=== PATIENT | female | born 1945 | race Caucasian/White ===

== ENCOUNTER → 2019-08-21 14:13 | Outpatient (BNVA) | payer MEDICARE, OTHER, SELFPAY | PROVIDERS: Family Provider Nurse Practitioner Family; PCP Family Medicine; Visit Provider Nurse Practitioner Family | DX: N30.20 Other chronic cystitis without hematuria (principal); N39.41 Urge incontinence; N76.0 Acute vaginitis | CPT/HCPCS: 81001 ==

== ENCOUNTER 2019-12-18 14:00 | Outpatient (CLI) | payer MEDICARE, OTHER, SELFPAY ==
--- NOTE | 2019-12-18 17:22 | ONC CON_ITS ---
Dr. Berger New Patient Note Patient: Amanda Molina Unit #: [id number]: [id number] Dicatated By: Mary Berger M.D.Date of Visit: Dec 18, 2019 Onc MED New Patient/Consult Referring Physician: Dr. Burak Yi M.D. History of Present Illness: Mrs. Amanda Molina, is a 74-year-old female with history of right lung mass, as per patient, initially, it was observed on her chest CT scan done 07/21/2017 which, at that time, it was so small, and it was decided to observe. And then she lost follow-up until recently when she underwent CT scan of chest abdomen pelvis on 10/10/2019 which showed increase in size of cavitary nodule in the right lower lobe suspicious for neoplasm, enlarged mediastinal and right hilar lymph nodes suspicious for yg metastasis subsequently on 10/25/2019, she underwent CT PET scan which confirmed hypermetabolic cavitary lesion within the subpleural right lower lobe consistent with primary pulmonary neoplasm and hypermetabolic right hilar, right lower paratracheal, and subcarinal, adenopathy. There is a hypermetabolic lymph node abutting the esophagus most consistent with paraesophageal lymph node. No contralateral hypermetabolic left hilar lymph nodes seen. No distant metastasis within the abdomen or pelvis or in the bones Subsequently patient underwent bronchoscopy on 11/13/2019 at [facility] in [place], transbronchial lymph node biopsy was done from the radius stations and pathology report reported on 12/04/2019 showed lymph nodes station 4R, positive for malignancy fragments of squamous cell carcinoma seen Lymph node station 10 R, FNA biopsy, was positive for malignancy very scant fragments of squamous cell carcinoma seen Lung right lower lobe transbronchial biopsy showed benign lung tissue, no tumor seen PDL 1 membranous positivity seen in 95% of tumor cell. Patient further, underwent CT scan of chest on 12/01/2019 which showed interval increase in size of peripheral spiculated cavitary lesion of the posterior basal segment of right lower lobe consistent with progression of the disease. And stable abnormal short axis diameter right hilar and middle mediastinal lymphadenopathy . Mild central lobular and paraseptal emphysematous changes. Mild increase in size of small pericardial effusion. Patient has history of smoking but quit 16 years ago Patient denies any hemoptysis or hematemesis, denies any fever or chills. Denies any dysphagia, denies any jaundice denies any bony pains, appetite is good. Past Medical History: Ms. Molina's medical history consists of chronic back pain, chronic kidney disease (stage III), chronic obstructive pulmonary disease, enlarged aorta, hyperlipidemia, hypertension, migraine headaches, type II diabetes, vitamin b12 deficiency, and vitamin d deficiency. Past Surgical History: Ms. Molina's surgical/procedural history consists of cataract excision, hysterectomy, and left femur replacement. Medications: ALPRAZolam 1 Tablet (of 1 mg) Oral b.i.d., Amoxicillin 1 Capsule (of 250 mg) Oral t.i.d. for 10 days, Ntqwzoscqm-MHRX-Aelfqovc 1 Capsule (of 50-325-40 mg) Oral q 4 hours PRN, Clopidogrel Bisulfate 1 Tablet (of 75 mg) Oral daily, Escitalopram Oxalate 1 Tablet (of 20 mg) Oral daily, Famotidine 1 Tablet (of 40 mg) Oral b.i.d., Furosemide 1 Tablet (of 80 mg) Oral b.i.d., Gabapentin 1 Tablet (of 600 mg) Oral t.i.d., HYDROcodone-Acetaminophen 1 Tablet (of 10-325 mg) Oral q 4 hours PRN, Lactulose 1 (20 g/30mL) Solution Oral b.i.d., Levothyroxine Sodium 1 Tablet (of 137 mcg) Oral daily, Lovastatin 1 Tablet (of 20 mg) Oral daily, metFORMIN HCl 1 Tablet (of 500 mg) Oral b.i.d., tiZANidine HCl 2 Tablet (of 2 mg) Oral at bedtime, traZODone HCl 1 - 3 Tablet (of 50 mg) Oral at bedtime, Vitamin D (Ergocalciferol) 1 CA 125 Units/mL (of 1.25 mg ) Capsule Oral q 7 days Allergies: Citalopram Hydrobromide and Cymbalta. Social History: Ms. Molina is and she is an unknown. Ms. Molina no longer smokes but had smoked 1.5 packs/day for 25 years. She has no history of drinking. Ms. Molina reports the following support systems: lives with spouse, significant other, family, or friends, lives in own house, supportive family/friends willing to assist with needs, and adequate transportation available for expected visits. Her diet consists of regular meals. She indicates her activity level as: light exercise. Family History: Ms. Molina's mother at age 79: stroke. Ms. Molina's father at age 69: lung cancer. Review Of Symptoms: Constitutional - Appetite is diminished and weight is stable. No fever, night sweats, or hot flashes. Energy level is poor, ENMT - Positive for sinus congestion/drainage. No mouth sores. Positive for sore throat and difficulty swallowing, Hematologic/Lymphatic - Positive for easy bruising, Respiratory - Positive for shortness of breath. No cough. No pleuritic pain or hemoptysis, Cardiovascular - No angina pain. No palpitations, Gastrointestinal - No nausea or vomiting. No heartburn or acid reflux. No diarrhea. Positive for constipation. No blood in the stool or black stools, Genitourinary (F) - No dysuria or hematuria. No urinary frequency. No urgency. Positive for incontinence, Musculoskeletal - Positive for joint pain, Neurologic - Positive for headache, dizziness. No numbness or tingling. No other focal neurologic symptoms, Psychiatric - Positive for anxiety and depression. No insomnia. Vital Signs: Performed on Dec 18, 2019 14:18: 6, 29.19, 1.87 sq.m, 65.00 in, 97 %, 68 /min, 18 /min, 142/62 mm(hg) (HIGH), 98.2 F (LOW), and 175.4 lbs (HIGH). Performance Status: 0 - Fully active, able to carry on all predisease activities without restrictions. (ECOG) Physical Examination: ENMT - no mouth sores, no thrush, Respiratory - Lungs are clear, Cardiovascular - Regular rate and rhythm of heart, Abdomen - soft, bowel sounds present, Extremities - trace edema lower extremity, chronic in nature. Lab/Imaging: Most recent lab results are not available for this patient. Impression: Squamous cell carcinoma per transbronchial biopsy done on 11/13/2019 reported on 12/04/2019 showed right-sided mediastinal lymph node involvement e.g. Station 4R, station 10 R, F and lymph node biopsy confirmed squamous cell carcinoma. As right lower lobe transbronchial biopsy showed benign lung tissue CT PET scan done on 10/25/2019 showed hypermetabolic cavitary lesion within the subpleural right lower lobe consistent with primary lung malignancy Hypermetabolic right hilar, right lower paratracheal, subcarinal, paraesophageal lymphadenopathy seen. No contralateral lymphadenopathy No distance metastases. Clinical stage T1c,, 2.3 x 1.5 cm (>2cm ,<3cm), N2 ,( right mediastinal and paraesophageal lymph node involvement), MX stage IIIa Diabetes mellitus, on oral hypoglycemic History of migraine headaches. Plan: Discussed with patient regarding her disease status, and treatment options, considering patient's age and clinical stage e.g. stage IIIa and comorbid condition, patient is not a candidate for upfront surgery, other treatment options including , neoadjuvant chemotherapy followed by surgical evaluation or neoadjuvant combined chemoradiation followed by surgical evaluation or definitive combined chemoradiation followed by maintenance immunotherapy with durvalumab , were discussed in detail Based on patient's age, underlying pulmonary status, patient is not a candidate for surgery so definitive combined chemoradiation therapy is under consideration, we will refer her to radiation oncology for evaluation and consider weekly carboplatin/Taxol concurrent with radiation therapy, if tolerated well, may consider full dose carboplatin/Taxol every 21 days ???2 followed by maintenance therapy with durvalumab every 2 weeks ???12 months All the side effects possible benefits associated with chemotherapy including but not limited to bone marrow suppression, nausea vomiting, hair loss, allergic reaction especially with Taxol, hyperglycemia with steroids, peripheral neuropathy again with Taxol were mentioned further teaching will be done by chemotherapy nurse. We will obtain approval from insurance prior to the treatment and also consider Port-A-Cath placement to facilitate chemotherapy. And also consider sliding scale teaching We will obtain baseline CBC CMP and patient return to clinic 1 week after chemotherapy is initiated with CBC CMP Signed By: Mary Berger M.D. <<Signature on File>>
== END 2019-12-18 14:01 | disposition home or self-care (01) ==
LOC: ONCMED 14:05
PROVIDERS: PCP Family Medicine; Visit Provider Internal Medicine Hematology & Oncology
DX: C80.1 Malignant (primary) neoplasm, unspecified (principal); C77.1 Secondary and unspecified malignant neoplasm of intrathoracic lymph nodes; E11.22 Type 2 diabetes mellitus with diabetic chronic kidney disease; I12.9 Hypertensive chronic kidney disease with stage 1 through stage 4 chronic kidney disease, or unspecified chronic kidney disease; N18.9 Chronic kidney disease, unspecified; J44.9 Chronic obstructive pulmonary disease, unspecified; G43.109 Migraine with aura, not intractable, without status migrainosus; Z87.891 Personal history of nicotine dependence; Z79.84 Long term (current) use of oral hypoglycemic drugs
CPT/HCPCS: 99203; 99214

== ENCOUNTER 2019-12-26 12:08 | Day surgery (SDC) | payer MEDICARE, OTHER, SELFPAY ==
[2019-12-22 13:45] VITALS: BMI 28.3
--- NOTE | 2019-12-26 | SCC_ITS ---
Procedure Done: Right IJ PowerPort placement through right internal jugular vein under ultrasound guidance and fluoroscopic images, all interpretation through the entire procedure was done by me. 22.2 seconds of fluoroscopic guidance, for a cumulative dose of 3.3 mGy, was provided to Dr. Perdomo by the radiology department. C-arm images of the chest were saved for the patient's permanent record. [facility]ITALTeodora
--- NOTE | 2019-12-26 12:19 | SC_ITS ---
WS: [id number] Fluoroscopy of the right chest for port catheter placement, 12/26/2019 Clinical Data: Fluoroscopic guidance Port-A-Cath placement Comparison: None. Findings: The right Port-A-Cath has been inserted. It ends in the superior vena cava. SC/C-arm [place] for CVA 51244 Impression: Satisfactory placement of right Port-A-Cath.
[2019-12-26 12:33] VITALS: BP 139/97; PULSE 73; RESP 18; TEMP 36.6; O2SAT 97
[2019-12-26] MEDS: sodium chloride 0.9% 1,000 ML 30 ML IV (12:43)
[2019-12-26 12:47] LABS: Glucose Point of Care 116 mg/dL (70-110)
--- NOTE | 2019-12-26 12:56 | P.ANESASSM_ITS ---
Pre-Anesthetic Assessment Pre-Anesthetic Assessment: Height/Weight: Height 1.65 m Weight 77.111 kg Temp Pulse Resp BP Pulse Ox 97.9 F 73 18 139/97 97 12/26/19 12:33 12/26/19 12:33 12/26/19 12:33 12/26/19 12:33 12/26/19 12:33 Preop Diagnosis: Lung cancer Proposed Procedure: Operation Date: 12/26/19 12:25 Proposed Procedures p Portacath Placement 37520 C34.90(Not Applicable) - Alec Perdomo MD Was Beta Mariaelena taken within 24 hours: N/A Last intake: Intake Last Liquid Date 12/26/19 Last Liquid Time 05:00 Last Solid Date 12/25/19 Last Solid Time 20:00 Social: Social History: No alcohol and No tobacco Packs per day: quit smok ing 15 years back Exam: Pre-Anes Outpt Exam: alert, oriented x 3, clear to auscultation bilaterally and regular rate & rhythm Airway: Submandibular: WNL Cervical ROM: WNL MP: 2 Dentition: False History/ROS: No significant history except as noted Pulmonary: Pulmonary: COPD Comments: Current Diagnosis of Lung CA CV/HEM: CV/HEM: HTN : : None reported Hepatic: Hepatic: None reported GI: GI: None reported Metabolic: Metabolic: Thyroid Musc/skel: Musc/skel: None reported Neuropsych: Neuropsych: Anxiety Anesthetic Plan: ASA status: 3 Anesthesia: MAC Meds/Allergies Current Medications: Current Medications Generic Name Dose Route Start Last Admin Trade Name Freq PRN Reason Stop Dose Admin Sodium Chloride 1,000 mls @ 30 ml s/hr 12/26/19 12:30 12/26/19 12:43 Sodium Chloride 0.9% IV 12/27/19 12:29 30 mls/hr .Q24H MICHELLE Administration PFSH Anesthesia PFSH: Medical History Chronic cystitis Diabetes Gross hematuria H/O fracture of femur has an artifical femur left leg Malignant neoplasm of lung Urgency incontinence Surgical History H/O oral surgery H/O pneumonectomy H/O: hysterectomy S/P cataract surgery Family History Mother , CVA-79 No problems noted. Father , 69-lung cancer Cancer Denies family history of Anesthesia complication Bleeding disorder Social History Smoking and tobacco status: never smoked Alcohol intake: never Adopted: No Caregiver/support person: No Lives independently: No Household members: family Marital status: / Current occupational status: retired Data Anesthesia Other Labs: Laboratory Results - last 48 hr 12/26/19 12:44 POC Glucose 116 Cardiac Studies: No Data to Display
--- NOTE | 2019-12-26 12:57 | W.PM.OPSUD ---
Surgery/Procedure H&P Update DATE OF PROCEDURE: December 26, 2019 DATE H&P PERFORMED: 12/21/19 H&P UPDATE INFORMATION: I have reviewed H&P completed within last 30 days, I have examined patient prior to procedure and No changes to prior documentation PREOP DIAGNOSIS: Lung cancer PRIMARY INDICATION FOR PROCEDURE: The same PLANNED PROCEDURE: Operation Date: 12/26/19 12:25 Proposed Procedures p Portacath Placement 52242 C34.90(Not Applicable) - Alec Perdomo MD
[2019-12-26] MEDS: lidocaine 2% INJ 20 mL INJECTION (13:54)
[2019-12-26] MEDS: heparin, porcine 1,000 unit/mL INJ 10 mL 10000 UNIT INJECTION (13:55)
--- NOTE | 2019-12-26 14:36 | P.OP_ITS ---
Operative Report Date of procedure: December 26, 2019 Pre-op Diagnosis: Lung cancer Post-op diagnosis: same Post-op Findings: Right IJ PowerPort placement through right internal jugular vein Procedure Done: Right IJ PowerPort placement through right internal jugular vein under ultrasound guidance and fluoroscopic images, all interpretation through the entire procedure was done by me. Implants: PowerPort placed right IJ vein Surgeon: Alec Perdomo Director Of Scout Work: manufacturing test technician Rolanda Circulating nurse Suze Anesthesia: MAC (Esperanza Collazo) Estimated blood loss (mL): 20 Condition: stable Disposition: same day Brief History: This is a pleasant 74 years old female patient with history of lung cancer requiring Port-A-Cath placement. plan of care; After thorough history physical examination and reviewing the chart, I counseled the patient for Port-A-Cath placement, indications, risks including pneumothorax and injury of major vascular structures, benefits,indications and alternatives were all discussed with the patient, patient understands and is interested to proceed. Rationale was carefully and clearly discussed with the patient.Appropriate informed consent have been reviewed and signed. Procedure: Patient was identified in the holding area and taken to the operative room and placed in supine position IV propofol was given by the anesthesia provider ,both arms were tucked,Time-out was done verifying the patient's name/date of /planned procedure and destination after the procedure, all were in agreement. SCDs confirmed to be functioning, preoperative antibiotics administered per protocol, and beta catracho protocol was confirmed, appropriate positioning of the patient was done by me. Medications were reviewed to assess for anticoagulant usage. Risks and benefits and prevention of central line associated blood stream infection (CLABSI) were discussed with the patient/CPOA, and a consent was obtained. Monitors were in place and monitored throughout the procedure. All necessary supplies were available prior to start. Hand hygiene was completed prior to starting. Maximum barrier technique was utilized including a sterile gown, sterile gloves with a hat and mask. Site was was prepped with [chlorhexidine] and a full body drape was placed. 5 mL of 2% lidocaine was injected into the skin with a 25 gauge needle. Prep& drape was done under the usual sterile technique, lidocaine 2% was injected at the site of the stick, started by right subclavian vein that was not successful after couple of attempts as the wire wont thread. I decided to deviate my attention to the right internal Juglar vein under ultrasound guidance stick that retrieved venous blood was obtained from the first stick under ultrasound guidance and there was no evidence of intraluminal thrombosis, interpretation was done by me through the whole entire procedure, a guidewire was then threaded and under the guidance of fluoroscopy position was confirmed to be in the IVC and my interpretation, there was no PVC changes, at that point the guidewire was secured to the drapes with a hemostat and the needle was taken out. Attention was then deviated towards creation of a pocket for the port were lidocaine 2% was injected using an 15 blade knife skin incision was created at the right upper Chest ,dissection using the Bovie to create a pocket for the Port-A-Cath to be accommodated, hemostasis was secured, after the port being appropriately flushed it was inserted into the pocket and a tunneler was used to accommodate the catheter of the port cath to be delivered through the incision first created at the site of the stick, yet I had to create a transit incision at the root of the neck at the right side to the patient difficult anatomy , and then I was able to retrieve the catheter at the index site of the stick. At that point under fluoroscopy an estimated length was measured for the catheter and was cut at the designed level, followed by that a dilator with the sheath introduced onto the guidewire the dilator and the wire were retrieved and the catheter of the port was introduced via the sheath where it was peeled off and the catheter maintained to be in the SVC that was confirmed with fluoroscopy, and the fluoroscopy interpretation was done by me throughout the entire procedure. Multiple flushes of the port was done by diluted heparin and I was able to retrieve without difficulty venous blood as well as appropriate flushing was achieved. The port maintained to be in its pocket followed by 3-0 Vicryl deep subdermal interrupted sutures, skin was then closed by 4-0 Monocryl as subcuticular closure.3-0 Vicryl was used to close the previous skin incisions at the neck, followed by surgical glue. Patient tolerated the procedure well was taken to the recovery area in stable condition Count was correct at the end of the procedure I was present for the whole entire procedure
--- NOTE | 2019-12-26 14:36 | XR_ITS ---
WS: [id number] PORTABLE CHEST HISTORY: s/p RIGHT IJ port-a-cath COMPARISON: None available. RIGHT internal jugular port is been placed with tip in the distal SVC. No complications are apparent. Lungs are clear and well expanded. No pleural effusion or pneumothorax. Cardiac size: Normal. Mediastinum/Aorta: Mild atherosclerosis aorta. No osseous abnormality seen. XR/XR chest 1V portable [id number] IMPRESSION: Uncomplicated placement RIGHT IJ Port-A-Cath.
[2019-12-26 14:47] VITALS: BP 152/84; PULSE 81; RESP 14; TEMP 36.1; O2SAT 100
[2019-12-26 15:06] VITALS: BP 138/74; PULSE 73; RESP 18; TEMP 36.4; O2SAT 96
[2019-12-26] MEDS: HYDROcodone-acetaminophen 10-325 mg Tablet 1 TAB PO (15:20)
[2019-12-26 15:23] VITALS: BP 142/81; PULSE 96; RESP 18; O2SAT 96
== END 2019-12-26 15:58 | disposition home or self-care (01) ==
PROVIDERS: PCP Family Medicine; Visit Provider Surgery
PROC: (CPT 36561; principal; 2019-12-26 12:25)
DX: C34.90 Malignant neoplasm of unspecified part of unspecified bronchus or lung (principal); J44.9 Chronic obstructive pulmonary disease, unspecified; I10 Essential (primary) hypertension; F41.9 Anxiety disorder, unspecified; E11.9 Type 2 diabetes mellitus without complications; Z79.84 Long term (current) use of oral hypoglycemic drugs
CPT/HCPCS: 36561; 12345; 36416; 71045; 76000; 77001; 82962; C1788; J0690; J1644; J2001; J2704; J3010; J7030

== ENCOUNTER 2020-01-03 15:03 | Outpatient (CLI) | payer MEDICARE, OTHER, SELFPAY ==
--- NOTE | 2020-01-03 17:30 | N.ONRAD NP_ITS ---
Radiation Oncology New Patient Visit Patient: Amanda Molina MR#: [id number] : 1945> Age: 74> Sex: Female> Dictated by: Dr. Osvaldo Street Date of Service: 01/03/2020 Referring Physician(s) : Dr. Berger Diagnosis: C80.1 - malignant (primary) neoplasm, unspecified, Diagnosed 12/22/2019 (active) and C77.1 - secondary and unspecified malignant neoplasm of intrathoracic lymph nodes, Diagnosed 12/22/2019 (active). Radiotherapy to date: Summary > No prior radiation therapy. Chief Complaint / History of Present Illness: Mrs. Molina is a 74-year-old lady who had imaging of the chest performed in July 2017. At that time she had a small right lower lobe pleural mass measuring about 5 x 7 mm. Follow-up was elected, but the patient did not have further imaging that I know of until September of this year. She was being evaluated for enlargement of the aorta and the mass in the right lower lobe was noted to have increased in size to about 2 cm and it had become cavitary. Also the study in September revealed right hilar and mediastinal lymphadenopathy. A PET/CT performed 10/25/2019 showed increased metabolic activity in the cavitary mass as well as right hilar, right lower paratracheal, subcarinal and para esophageal lymph nodes. A bronchoscopy was performed 11/13/2019. No endobronchial lesions were identified but lymph node biopsies were carried out and fragments of squamous cell carcinoma recovered from stations 4R and 10 R. 95% of the tumor cells were positive for PDL 1, though the specimen was very small and it was recommended that the results be interpreted with caution. Another CT of the chest was performed 1 month ago. It showed slight enlargement of the cavitary mass in the right lower lobe and stable lymphadenopathy. Mrs. Molina has seen Dr. Berger. He does not feel that she is a candidate for surgery. He is referred her for evaluation for concomitant chemotherapy and radiation. Mrs. Molina does not have apparent symptoms related to the cancer. She has had no change in her pulmonary status. She has a history of sleep apnea and uses oxygen at night because of that. She could not could not tolerate a mask for CPAP. She has had no troublesome cough, sputum production, or hemoptysis. She has no new bone pain. Her appetite and weight have been stable. She has stable fatigue. She states that she can walk up 1 flight of stairs without any difficulty. Current Medications: ALPRAZolam, amoxicillin, dsagzxvgct-SQUB-Hmevoamw, clopidogrel Bisulfate, dexamethasone, escitalopram Oxalate, famotidine, furosemide, gabapentin, hYDROcodone-Acetaminophen, lactulose, levothyroxine Sodium, lovastatin, metFORMIN HCl, tiZANidine HCl, traZODone HCl, vitamin D (Ergocalciferol). Allergies: Cymbalta and Citalopram Hydrobromide. Medical History: - Chronic back pain, - chronic kidney disease (stage III) , - chronic obstructive pulmonary disease, - enlarged aorta, - hyperlipidemia, - hypertension, - migraine headaches, - type II diabetes, - vitamin b12 deficiency, - vitamin d deficiency. No history of collagen vascular disease. No previous radiation therapy. Surgical History: Cataract excision, hysterectomy and left femur replacement. Family History: Father is at age 69 having experienced lung cancer. Mother is at age 79 having experienced stroke. Social History: Last screened on 12/18/2019 - Yes - but has quit. Smoked 1.5 packs/day for 25 years (37.5 pack years). Last screened on 12/18/2019 - Never drank. Patient indicated access to the following support systems: lives with spouse, significant other, family, or friends, lives in own house, supportive family/friends willing to assist with needs, and adequate transportation available for expected visits. Patient indicated the following nutritional habits: regular meals. Patient indicated participation in the following forms of activity: light exercise. Current Complaints / Review of Systems: Constitutional - Complains of mild fatigue. Denies lack of appetite, fever, night sweats and change in weight. Eyes - Denies blurred vision and double vision. ENMT - Complains of mouth dryness and altered taste occasionally. Denies dysphagia, ear pain and stomatitis. Neck - Denies neck pain. Integumentary - Denies rash. Breasts - Denies pain. Cardiovascular - Complains of edema in both lower legs and feet. Denies arrhythmias and chest pain. Respiratory - Complains of mild dyspnea associated with normal activity. Complains of mild wheezing. Denies cough and hemoptysis. Gastrointestinal - Complains of persistent constipation. Complains of hemorrhoids. Denies abdominal pain, diarrhea, heartburn / dyspepsia, melena / GI bleeding, nausea and vomiting. Genitourinary (F) - Complains of dysuria associated with a known UTI. Complains of urgency. Denies frequency, hematuria, nocturia, vaginal discharge / bleeding and vaginal spotting. Musculoskeletal - Complains of joint pain both knees and lower back. Complains of generalized muscle weakness. Denies bone pain. Neurologic - Complains of abnormal gait and headaches in which she has history of migraines. Denies dizziness. Endocrine - Complains of Type 2 diabetes. Complains of thyroid disease. Hematologic/Lymphatic - Denies tender or enlarged lymph nodes.. Vital Signs: Performed on 01/03/2020 3:50 PM BMI - 29.488 kg/m2 (high), Height - 65.00 in, Weight - 177.2 lbs, Temperature - 98.0 f, Pulse - 78, Respiration - 20, O2 Sat - 95 % (low), Pain - 5 and BP - 118/ 70 mm(hg). Physical Exam: . No cervical or supraclavicular lymphadenopathy. A port has been placed in the right upper anterior chest. There is mild ecchymosis. There is no evidence of infection in the area. Lungs are clear to percussion. On auscultation there are no rales rhonchi or wheezes. Heart rhythm is regular with no murmur or gallop or rub. The abdomen has no distention. There is no organomegaly or mass or tenderness. Bowel sounds are active and normal. The musculoskeletal exam reveals a normal gait. She got on the exam table without assistance and with no difficulty. There is no bone tenderness. Alert oriented and in no distress Performance Status: KPS: 80 Pathology: Primary, c80.1 - malignant (primary) neoplasm, unspecified, Diagnosed 12/22/2019 (active) and Primary, c77.1 - secondary and unspecified malignant neoplasm of intrathoracic lymph nodes, Diagnosed 12/22/2019 (active). Lab: Imaging: See HPI Impression: Unresectable non-small cell carcinoma of the lung based on mediastinal lymph node involvement. Also, based on Mrs. Molina's age and overall health status, she probably would not tolerate the thoracotomy well. I agree with the recommendation for concomitant chemotherapy and radiation. I discussed a typical course of treatment over 7 weeks. I discussed the acute side effects such as fatigue, loss of appetite, weight loss, low blood counts, skin reaction, esophagitis, increased cough, and hemoptysis,. I reviewed the small risk of esophageal stenosis requiring dilatation procedures. Also discussed the small risk of cardiac injury, especially a pericardial effusion that may need to be drained. Also discussed the small risk of radiation fibrosis that could result in oxygen dependence. Mrs. Molina wishes to proceed with concomitant chemotherapy and radiation as recommended. Plan: Simulation will be scheduled. Signed by: 01/03/2020 5:29:47 PM <<Signature on File>> Time spent with patient: CPT Code: CPT Code:
== END 2020-01-03 15:04 | disposition home or self-care (01) ==
PROVIDERS: PCP Family Medicine; Visit Provider Internal Medicine Hematology & Oncology
DX: C34.31 Malignant neoplasm of lower lobe, right bronchus or lung (principal); C77.1 Secondary and unspecified malignant neoplasm of intrathoracic lymph nodes; G47.30 Sleep apnea, unspecified; Z99.81 Dependence on supplemental oxygen; E11.22 Type 2 diabetes mellitus with diabetic chronic kidney disease; I12.9 Hypertensive chronic kidney disease with stage 1 through stage 4 chronic kidney disease, or unspecified chronic kidney disease; N18.3 Chronic kidney disease, stage 3 (moderate); Z79.84 Long term (current) use of oral hypoglycemic drugs; Z87.891 Personal history of nicotine dependence
CPT/HCPCS: 99204

== ENCOUNTER 2020-01-16 06:50 | Outpatient (RCR) | payer MEDICARE, OTHER, SELFPAY ==
--- NOTE | 2020-01-08 | CT_ITS ---
Radiation Therapy Planning CT images; total exam DLP: 484.45 mGy-cm MTDD
[2020-01-15 10:01] LABS: Basophils % 0.2 %; Eosinophils % 0.2 %; Hematocrit 42.5 % (37.0-47.0); Hemoglobin 13.4 g/dL (11.5-15.3); Lymphocytes % 21.1 %; Mean Corpuscular HGB Conc 31.5 g/dL (30.0-36.0); Mean Corpuscular Hemoglobin 29.6 pg (28.0-34.0); Mean Platelet Volume 9.7 fL (7.4-10.4); Monocytes # 0.1 10^3/uL (0.2-0.9); Neutrophils # 3.7 10^3/uL (1.8-7.7); Neutrophils % 76.9 %; Nucleated Red Blood Cells % 0 %; Platelet Count 245 10^3/cmm (130-400); Red Blood Count 4.52 10^6/uL (4.1-5.3); Red Cell Distribution Width 13.1 % (12.1-15.1); White Blood Count 4.8 10^3/uL (4.0-10.0)
[2020-01-15 10:14] LABS: Slide Review Slide Review Perform
[2020-01-15 10:44] LABS: Alanine Aminotransferase 13 U/L (0-33); Albumin Level 4.5 g/dL (3.5-5.2); Alkaline Phosphatase 55 IU/L (35-105); Anion Gap 24.6 (5-19); Aspartate Amino Transferase 17 U/L (0-32); Blood Urea Nitrogen 15 mg/dL (8-23); Calcium 9.6 mg/dL (8.5-10.5); Carbon Dioxide 21 mmol/L (22-29); Chloride 99 mmol/L (98-107); Globulin 3.4 g/dL (1.3-4.6); Glucose 184 mg/dL (65-115); Osmolality Calculated 293 mOsm/kg (285-295); Potassium 3.6 mmol/L (3.5-5.1); Sodium 141 mmol/L (136-145); Total Bilirubin 0.2 mg/dL (0.15-1.2); Total Protein 7.9 g/dL (6.6-8.7)
[2020-01-15] MEDS: sodium chloride 0.9% 250 ML 75 ML IV (11:26)
--- NOTE | 2020-01-16 11:21 | ONCRAD TMN_ITS ---
Radiation Oncology Weekly Treatment Management Patient: Amanda Molina MR#: [id number] : 1945> Age: 74> Sex: Female Dictated by: Dr. Osvaldo Street Date of Service: 01/16/2020 Referring Physician(s) : Mary Berger M.D. Diagnosis: C77.1 - Secondary and unspecified malignant neoplasm of intrathoracic lymph nodes, Diagnosed 12/22/2019 (Active) C34.31 - Malignant neoplasm of lower lobe, right bronchus or lung, Diagnosed 12/18/2019 (Active) Radiotherapy to date: Course: RT Lung 2019, Treatment Site: RT [id number], Ref. ID: [id number], Energy: 6X, Dose/Fx (cGy): 180, #Fx: , Dose Correction (cGy): 0, Total Dose (cGy): 360, Start Date: 01/15/2020, Elapsed Days: 1 Chief Complaint/History of Present Illness: lung cancer tumor dose 360 cGy in 2 fractions. received chemotherapy and her first radiation treatment yesterday. She tells me that she fell when she got off the radiation table. I spoke with the radiation staff and they denied any incident at all. They think she may have fallen in the chemotherapy unit. They will check. Mrs. Molina states she has been having some problems with her legs since well before the cancer was diagnosed. She has episodes of weakness in her knees and she has also been having pedal edema. She has seen her primary care doctor for this problem in the past. She has also lost weight since beginning treatment. Her weight is down 7.2 pounds since 01/03/2020. She is diabetic. She tolerated the first 2 radiation treatments well. She is complimentary of the staff. No difficulty with the treatment position. Mrs. Amanda Molina, is a 74-year-old female with history of right lung mass, as per patient, initially, it was observed on her chest CT scan done 07/21/2017 which, at that time, it was so small, and it was decided to observe. And then she lost follow-up until recently when she underwent CT scan of chest abdomen pelvis on 10/10/2019 which showed increase in size of cavitary nodule in the right lower lobe suspicious for neoplasm, enlarged mediastinal and right hilar lymph nodes suspicious for yg metastasis subsequently on 10/25/2019, she underwent CT PET scan which confirmed hypermetabolic cavitary lesion within the subpleural right lower lobe consistent with primary pulmonary neoplasm and hypermetabolic right hilar, right lower paratracheal, and subcarinal, adenopathy. There is a hypermetabolic lymph node abutting the esophagus most consistent with paraesophageal lymph node. No contralateral hypermetabolic left hilar lymph nodes seen. No distant metastasis within the abdomen or pelvis or in the bones Subsequently patient underwent bronchoscopy on 11/13/[address] [facility] in [place], transbronchial lymph node biopsy was done from the radius stations and pathology report reported on 12/04/2019 showed lymph nodes station 4R, positive for malignancy fragments of squamous cell carcinoma seen Lymph node station 10 R, FNA biopsy, was positive for malignancy very scant fragments of squamous cell carcinoma seen Lung right lower lobe transbronchial biopsy showed benign lung tissue, no tumor seen PDL 1 membranous positivity seen in 95% of tumor cell. Patient further, underwent CT scan of chest on 12/01/2019 which showed interval increase in size of peripheral spiculated cavitary lesion of the posterior basal segment of right lower lobe consistent with progression of the disease. And stable abnormal short axis diameter right hilar and middle mediastinal lymphadenopathy . Mild central lobular and paraseptal emphysematous changes. Mild increase in size of small pericardial effusion. Patient has history of smoking but quit 16 years ago Patient denies any hemoptysis or hematemesis, denies any fever or chills. Denies any dysphagia, denies any jaundice denies any bony pains, appetite is good. Current Medications: ALPRAZolam, amoxicillin, nijdbwhfbh-LEIR-Jpvowwlm, cARBOplatin, clopidogrel Bisulfate, dexamethasone, dexamethasone Sodium Phosphate, diphenhydrAMINE HCl, eMLA, escitalopram Oxalate, famotidine, famotidine in NaCl, furosemide, gabapentin, hYDROcodone-Acetaminophen, lactulose, levothyroxine Sodium, lORazepam, lovastatin, metFORMIN HCl, pACLitaxel, palonosetron HCl, prochlorperazine Maleate, tiZANidine HCl, traZODone HCl, vitamin D (Ergocalciferol). Allergies: Cymbalta, Citalopram Hydrobromide and adhesive. Current Complaints/Review of Systems: Constitutional - Complains of lack of appetite. Complains of mild fatigue. Complains of change in weight in which she has lost 7.2 lbs. since last seen on 01/03/20. Denies fever and night sweats. ENMT - Complains of mouth dryness and altered taste occasionally. Denies dysphagia but has occasoinal odynophagia. Cardiovascular - Complains of edema in both feet. Denies arrhythmias and chest pain. Respiratory - Complains of cough which is non-productive. Complains of dyspnea associated with normal activity. Denies hemoptysis and wheezing. Vital Signs: Performed on 01/16/2020 10:07 AM BMI - 28.29 kg/m2 (high), Height - 65.00 in, Weight - 170.0 lbs, Temperature - 97.8 f, Pulse - 66, Respiration - 18, O2 Sat - 96 %, Pain - 5 and BP - 112/ 75 mm(hg). Physical Exam: Appears stable, no skin erythema or desquamation. Performance Status: 2 - Ambulatory/capable of all self-care, unable to perform any work activities. Up and about more than 50% of waking hours. (ECOG) Lab: None pending in Radiation Oncology. Test performed on 01/15/2020 9:42 AM Monocytes - 0.1 10 3/ul (low), CO2 - 21 mmol/l (low), Anion Gap - 24.6 (high), Creatinine - 1.3 mg/dl (high), Cr Clearance (Est) - 47.4500 ml/min (low) and Glucose - 184 mg/dl (high). Imaging: No new diagnostic imaging was performed since the last weekly treatment visit. All radiation therapy related imaging (including but not limited to kV, MV, and CBCT generated images) was reviewed. Appropriate changes, if any, were made to assure accurate target localization. Impression/Plan: Tolerating treatment well with expected side effects. Continue treatment as planned. Encouraged to see her family physician for the pedal edema. She will be observed for her leg weakness problems and the pedal edema as she goes through radiation treatment. We discussed her diet. She is diabetic and is on metformin. Therefore she will need to minimize traditional diet supplements. She may be a candidate for Glucerna if weight loss continues. We discussed eating small meals throughout the day, which should give her some additional calories and not complicate her blood sugars. We discussed one issue about the treatment planning. The paraesophageal node is very close to the esophagus. I told her that we tried to limit the dose to the esophagus but I expect that she will have symptoms of esophagitis during treatment. I told her she will also be at increased risk for needing her esophagus dilated after treatment. We discussed that some patients need that procedure multiple times. She wishes to continue with treatment as recommended. CPT: 95715 Signed by: Dr. Osvaldo Street>01/16/2020 11:21:12 AM <<Signature on File>>
== END 2020-01-16 23:59 | disposition home or self-care (01) ==
LOC: ONCMED 06:50
PROVIDERS: Internal Medicine Hematology & Oncology; PCP Family Medicine; Visit Provider Specialist
DX: Z51.0 Encounter for antineoplastic radiation therapy (principal); Z51.11 Encounter for antineoplastic chemotherapy; C34.31 Malignant neoplasm of lower lobe, right bronchus or lung; C77.1 Secondary and unspecified malignant neoplasm of intrathoracic lymph nodes; N39.41 Urge incontinence; N30.20 Other chronic cystitis without hematuria
CPT/HCPCS: 77300; 77301; 77334; 77338; 77386; 77470; 80053; 85025; 96367; 96413; 96417; J1100; J1200; J2469; J3490; J7040; J7050; J9045; J9267

== ENCOUNTER → 2020-02-15 11:46 | Outpatient (BNVA) | payer MEDICARE, OTHER, SELFPAY | PROVIDERS: PCP Family Medicine; Visit Provider Nurse Practitioner Family | DX: N30.20 Other chronic cystitis without hematuria (principal); C34.90 Malignant neoplasm of unspecified part of unspecified bronchus or lung | CPT/HCPCS: 81001 ==

== ENCOUNTER 2020-02-16 06:52 | Outpatient (RCR) | payer MEDICARE, OTHER, SELFPAY ==
[2020-01-22 09:53] LABS: Basophils % 0.5 %; Eosinophils % 0.2 %; Hematocrit 39.4 % (37.0-47.0); Hemoglobin 12.6 g/dL (11.5-15.3); Lymphocytes # 0.5 10^3/uL (0.8-4.8); Lymphocytes % 12.2 %; Mean Corpuscular Hemoglobin 30.2 pg (28.0-34.0); Mean Corpuscular Volume 94.5 fL (81-99); Mean Platelet Volume 10.1 fL (7.4-10.4); Neutrophils # 3.4 10^3/uL (1.8-7.7); Neutrophils % 85.1 %; Nucleated Red Blood Cells % 0 %; Platelet Count 223 10^3/cmm (130-400); Red Blood Count 4.17 10^6/uL (4.1-5.3); Red Cell Distribution Width 12.5 % (12.1-15.1)
[2020-01-22 10:25] LABS: Alanine Aminotransferase 13 U/L (0-33); Albumin Level 4.4 g/dL (3.5-5.2); Alkaline Phosphatase 48 IU/L (35-105); Anion Gap 22.3 (5-19); Aspartate Amino Transferase 15 U/L (0-32); Blood Urea Nitrogen 14 mg/dL (8-23); Calcium 9.8 mg/dL (8.5-10.5); Carbon Dioxide 25 mmol/L (22-29); Chloride 98 mmol/L (98-107); Globulin 3.2 g/dL (1.3-4.6); Glucose 168 mg/dL (65-115); Osmolality Calculated 292 mOsm/kg (285-295); Potassium 4.3 mmol/L (3.5-5.1); Sodium 141 mmol/L (136-145); Total Bilirubin 0.3 mg/dL (0.15-1.2); Total Protein 7.6 g/dL (6.6-8.7)
[2020-01-22] MEDS: sodium chloride 0.9% 250 ML 75 ML IV (11:23)
[2020-01-22] MEDS: ondansetron 2 mg/ML SDV 2 mL 8 MG IV (12:17)
--- NOTE | 2020-01-23 15:33 | ONC FU_ITS ---
[facility] Patient Note Patient: Amanda Molina Unit #: [id number]: 1945 Dictated By: Jose RosenbergDate of Visit: Jan 22, 2020 Onc MED Follow-Up/Prog Note Chief Complaint: lung cancer History of Present Illness: Mrs. Molina is a 74-year-old female with history of right lung mass, as per patient, initially, it was observed on her chest CT scan done 07/21/2017 which, at that time, it was so small, and it was decided to observe. And then she lost follow-up until recently when she underwent CT scan of chest abdomen pelvis on 10/10/2019 which showed increase in size of cavitary nodule in the right lower lobe suspicious for neoplasm, enlarged mediastinal and right hilar lymph nodes suspicious for yg metastasis subsequently on 10/25/2019, she underwent CT PET scan which confirmed hypermetabolic cavitary lesion within the subpleural right lower lobe consistent with primary pulmonary neoplasm and hypermetabolic right hilar, right lower paratracheal, and subcarinal, adenopathy. There is a hypermetabolic lymph node abutting the esophagus most consistent with paraesophageal lymph node. No contralateral hypermetabolic left hilar lymph nodes seen. No distant metastasis within the abdomen or pelvis or in the bones Subsequently patient underwent bronchoscopy on 11/13/2019 at [facility] in [place], transbronchial lymph node biopsy was done from the radius stations and pathology report reported on 12/04/2019 showed lymph nodes station 4R, positive for malignancy fragments of squamous cell carcinoma seen Lymph node station 10 R, FNA biopsy, was positive for malignancy very scant fragments of squamous cell carcinoma seen Lung right lower lobe transbronchial biopsy showed benign lung tissue, no tumor seen PDL 1 membranous positivity seen in 95% of tumor cell. Patient further, underwent CT scan of chest on 12/01/2019 which showed interval increase in size of peripheral spiculated cavitary lesion of the posterior basal segment of right lower lobe consistent with progression of the disease. And stable abnormal short axis diameter right hilar and middle mediastinal lymphadenopathy . Mild central lobular and paraseptal emphysematous changes. Mild increase in size of small pericardial effusion. Patient has history of smoking but quit 16 years ago Ms Molina was offered concurrent treatment with chemo radiation. Her chemotherapy treatment plan is weekly Carboplatin/Taxol. She began her first week on January 15, 2020. She is here today for follow-up. She is due for week 2. She states overall she is done pretty good. She did state that she had quite a bit of constipation after her treatment last week. She states she has chronic constipation to begin with but this was worse than normal. It has currently resolved but she states it was pretty significant and she did end up using laxatives to resolve it. She did have slight nausea but did not take any of the antiemetics at home. She states she has a sore in her mouth but is because of her dentures. She has had some trouble with the dentures fitting and they had rubbed her lower gumline. She states that sore is healing though. She states she is had some intermittent leg numbness which comes and comes and goes but is no worse than what it has been. She denies any fever or chills. She denies any bladder concerns. She denies any new pain. She states she is eating fair. Energy is marginal. She states she is try to get up and do things around the house but she tires easily although she does recover well with rest. Her ECOG is 2. Past Medical History: Chronic back pain Chronic kidney disease (stage III) Chronic obstructive pulmonary disease Enlarged aorta Hyperlipidemia Hypertension Migraine headaches Type II diabetes Vitamin b12 deficiency Vitamin d deficiency Past Surgical History: Cataract excision Colonoscopy Hysterectomy Left femur replacement Allergies: adhesive, Citalopram Hydrobromide, and Cymbalta. Medications: ALPRAZolam 1 Tablet (of 1 mg) Oral b.i.d. Zbbzgwefjv-RMEH-Ledyoiht 1 Capsule (of 50-325-40 mg) Oral q 4 hours PRN Escitalopram Oxalate 1 Tablet (of 20 mg) Oral daily Famotidine 1 Tablet (of 40 mg) Oral b.i.d. Furosemide 1 Tablet (of 80 mg) Oral b.i.d. Gabapentin 1 Tablet (of 600 mg) Oral t.i.d. HYDROcodone-Acetaminophen 1 Tablet (of 10-325 mg) Oral q 4 hours PRN Lactulose 1 (20 g/30mL) Solution Oral b.i.d. Levothyroxine Sodium 1 Tablet (of 137 mcg) Oral daily Lovastatin 1 Tablet (of 20 mg) Oral daily metFORMIN HCl 1 Tablet (of 500 mg) Oral b.i.d. traZODone HCl 1 - 3 Tablet (of 50 mg) Oral at bedtime Vitamin D (Ergocalciferol) 1 CA 125 Units/mL (of 1.25 mg ) Capsule Oral q 7 days Family History: Ms. Molina's mother at age 79: stroke. Ms. Molina's father at age 69: lung cancer. Social History: Ms. Molina is and she is an unknown. Ms. Molina quit smoking 17 years ago but had smoked 1.5 packs/day for 8 years. She has no history of drinking. Ms. Molina reports the following support systems: lives with spouse, significant other, family, or friends, lives in own house, supportive family/friends willing to assist with needs, and adequate transportation available for expected visits. Her diet consists of regular meals. She indicates her activity level as: light exercise. Review Of Symptoms: Constitutional Denies fevers, chills, night sweats, excessive fatigue or weight loss. Allergic/Immunologic No reactions. Eyes Denies significant visual changes. No diplopia. No amaurosis. ENMT Denies changes in hearing, sore throat, mouth sores, difficulty or changes in swallowing ability, and/or sinus drainage. Some mouth irritation due to dentures. healing presently. Endocrine No diabetes, thyroid disease or hormone replacement. Denies hot flashes or night sweats. Hematologic/Lymphatic Denies easy bruising or bleeding. The patient denies any tender or palpable lymph nodes. Respiratory Denies dyspnea on exertion, chest pain, cough or hemoptysis. Denies orthopnea. Cardiovascular Denies anginal chest pain, palpitations or orthopnea. Gastrointestinal Denies nausea, vomiting, diarrhea, GI bleeding. Denies change in bowel habits and/or stool color, no heartburn or early satiety. She had significant constipation after last week's treatment. She states that she thinks it may be related to her pain meds. We did discuss that Aloxi could aggravate her constipation. She states she only had just a slight bit of nausea and did not require any additional nausea medicines. We will have her try stopping the Aloxi today and just using Zofran to see if this will help with her constipation. She states she took enough laxatives now that she has little bit of diarrhea but that is resolving on its own. Genitourinary (F) No hematuria, hesitancy, incontinence, vaginal bleeding, discharge or other problems with urination. Musculoskeletal Denies joint pain, swelling or redness. No decreased range of motion. Integumentary Denies chronic rashes, inflammation, ulcerations or skin changes. Neurologic Denies headache, blurred vision, and no areas of focal weakness or numbness. Normal gait. No sensory problems. Psychiatric Denies insomnia, depression, farida or mood swings. Vital Signs: Performed on Jan 22, 2020 10:28 Height - 65.00 in Weight - 168.6 lbs (LOW) BSA - 1.84 sq.m BMI - 28.06 Temperature - 97.1 F (LOW) Pulse - 94 /min Respiration - 17 /min BP - 134/71 mm(hg) O2 Sat - 98 % Pain - 0,2 - Ambulatory/capable of all self-care, unable to perform any work activities. Up and about more than 50% of waking hours. (ECOG) Physical Examination: Constitutional Alert, oriented, no acute distress. Skin pink, warm and dry. Head Normocephalic; atraumatic. Eyes Conjunctivae and sclerae are clear and without icterus. Pupils are reactive and equal. Neck Supple without masses or thyromegaly. No jugular venous distension. Hematologic/Lymphatic No petechiae or purpura. No tender or palpable lymph nodes in the cervical or supraclavicular areas. Respiratory Lungs are clear to auscultation without rhonchi or wheezing. Cardiovascular Regular rate and rhythm of heart without murmurs,clicks, gallops or rubs. Abdomen Non-tender, non-distended, no masses or ascites. Good bowel sounds noted in all quads. No guarding or rebound tenderness. No pulsatile masses. Back/Spine Non-tender to palpation. Extremities No visible deformities, no cyanosis, clubbing or edema. Musculoskeletal No tenderness or swelling, normal range of motion without obvious weakness. Integumentary No rashes or lesions. Neurologic No sensory or motor deficits, normal cerebellar function, normal gait-assisted with cane today. Psychiatric Alert and oriented times three. Coherent speech. Verbalizes understanding of our discussions today. Laboratory:Test performed on Jan 22, 2020 09:09 Sodium 141 mmol/L Potassium 4.3 mmol/L Chloride 98 mmol/L CO2 25 mmol/L Anion Gap 22.3 BUN 14 mg/dL Creatinine 1.0 mg/dL Cr Clearance (Est) 61.6800 mL/min Glucose 168 mg/dL Calcium 9.8 mg/dL Protein, Total 7.6 g/dL Albumin 4.4 g/dL Globulin 3.2 g/dL Bilirubin, Total 0.3 mg/dL ALT (SGPT) 13 U/L AST (SGOT) 15 U/L Alkaline Phosphatase 48 IU/L WBC 4.0 10 3/uL RBC 4.17 10 6/uL HGB 12.6 g/dL HCT 39.4 % MCV 94.5 fL MCH 30.2 pg MCHC 32.0 g/dL RDW 12.5 % Platelet Count 223 10 3/cmm MPV 10.1 fL Neutrophils 3.4 10 3/uL Lymphocytes 0.5 10 3/uL Monocytes 0.0 10 3/uL Eosinophils 0.0 10 3/uL Basophils 0.0 10 3/uL Neutrophil % 85.1 % Lymphocyte % 12.2 % Monocyte % 1.0 % Eosinophil % 0.2 % Basophils % 0.5 % NRBC % 0 % Test performed on Jan 15, 2020 09:42 CBC Slide Review Slide Review Perform SLIDE REVIEW AGREES WITH AUTOMATED RESULTS ST Impression: Squamous cell carcinoma per transbronchial biopsy done on 11/13/2019 reported on 12/04/2019 showed right-sided mediastinal lymph node involvement e.g. Station 4R, station 10 R, F and lymph node biopsy confirmed squamous cell carcinoma. As right lower lobe transbronchial biopsy showed benign lung tissue CT PET scan done on 10/25/2019 showed hypermetabolic cavitary lesion within the subpleural right lower lobe consistent with primary lung malignancy Hypermetabolic right hilar, right lower paratracheal, subcarinal, paraesophageal lymphadenopathy seen. No contralateral lymphadenopathy No distance metastases. Clinical stage T1c,, 2.3 x 1.5 cm (>2cm ,<3cm), N2 ,( right mediastinal and paraesophageal lymph node involvement), MX stage IIIa Diabetes mellitus, on oral hypoglycemic History of migraine headaches. Dr Berger discussed with patient regarding her disease status, and treatment options. Considering patient's age and clinical stage and comorbid condition, she is not a candidate for upfront surgery. Other treatment options include neoadjuvant chemotherapy followed by surgical evaluation or neoadjuvant combined chemoradiation followed by surgical evaluation or definitive combined chemoradiation followed by maintenance immunotherapy with durvalumab Based on patient's age, underlying pulmonary status, patient is not a candidate for surgery so definitive combined chemoradiation therapy is under consideration, we will refer her to radiation oncology for evaluation and consider weekly carboplatin/Taxol concurrent with radiation therapy, if tolerated well, may consider full dose carboplatin/Taxol every 21 days ???2 followed by maintenance therapy with durvalumab every 2 weeks ???12 months. Ms Molina began chemo/radiation on 01/15/2020. Plan: 1. Proceed with week 2 carboplatin paclitaxel. 2. Steroid compliance confirmed. 3. Stop Aloxi for premed due to constipation. Will try Zofran instead and reevaluate next week. 4. She may use stool softeners and [id number]-[id number] laxatives as needed for constipation. She is advised a stop that is not working we could try lactulose as well. 5. Today's labs were reviewed in detail and discussed with Ms. Molina and a copy was given to her. White count 4.0, hemoglobin 12.6, platelets 223,000 ANC is 3400. Potassium 4.3 random glucose 168 creatinine 1.01 LFTs are normal. 5. We will plan to have her return in 1 week with CBC CMP for consideration of week 3 concurrent chemo with radiation therapy. 6. Ms. Molina was instructed to contact us in the interim should questions or problems arise. Signed By: Jose Rosenberg-, BRO Berger MD <<Signature on File>>
--- NOTE | 2020-01-23 19:16 | ONCRAD TMN_ITS ---
Radiation Oncology Weekly Treatment Management Patient: Amanda Molina MR#: [id number] : 1945 Age: 74 Sex: Female Dictated by: Dr. Matthew Sabillon Date of Service: 01/23/2020 Referring Physician(s) : Mary Berger Diagnosis: C77.1 - Secondary and unspecified malignant neoplasm of intrathoracic lymph nodes, Diagnosed 12/22/2019 (Active) C34.31 - Malignant neoplasm of lower lobe, right bronchus or lung, Diagnosed 12/18/2019 (Active) Radiotherapy to date: Course: RT Lung 2019, Treatment Site: RT [id number], Ref. ID: [id number], Energy: 6X, Dose/Fx (cGy): 180, #Fx: , Dose Correction (cGy): 0, Total Dose (cGy): 1,080, Start Date: 01/15/2020, Elapsed Days: 8 Chief Complaint/History of Present Illness: The patient has moderate fatigue, mild chest wall pain on the right side, he denies progressive cough, shortness of breath, or wheezing. She reports that he is tolerating chemotherapy well. Current Medications: ALPRAZolam, gftcyyrwth-IEBD-Ajgpkqxh, cARBOplatin, dexamethasone, dexamethasone Sodium Phosphate, diphenhydrAMINE HCl, eMLA, escitalopram Oxalate, famotidine, famotidine in NaCl, furosemide, gabapentin, hYDROcodone-Acetaminophen, lactulose, levothyroxine Sodium, lORazepam, lovastatin, metFORMIN HCl, pACLitaxel, palonosetron HCl, prochlorperazine Maleate, traZODone HCl, vitamin D (Ergocalciferol). Allergies: Cymbalta, Citalopram Hydrobromide and adhesive. Current Complaints/Review of Systems: Vital Signs: Physical Exam: Appears stable, no skin erythema or desquamation. Performance Status: 2 - Ambulatory/capable of all self-care, unable to perform any work activities. Up and about more than 50% of waking hours. (ECOG) Lab: None pending in Radiation Oncology. Test performed on 01/22/2020 9:09 AM Lymphocytes - 0.5 10 3/ul (low), Monocytes - 0.0 10 3/ul (low), Anion Gap - 22.3 (high), Creatinine - 1.0 mg/dl (high), Cr Clearance (Est) - 61.6800 ml/min (low) and Glucose - 168 mg/dl (high). Imaging: No new diagnostic imaging was performed since the last weekly treatment visit. All radiation therapy related imaging (including but not limited to kV, MV, and CBCT generated images) was reviewed. Appropriate changes, if any, were made to assure accurate target localization. Impression/Plan: Tolerating treatment well with expected side effects. Continue treatment as planned. CPT: 99110 Signed by: Dr. Matthew Sabillon>01/23/2020 7:14:17 PM <<Signature on File>>
[2020-01-29 09:39] LABS: Basophils % 0.5 %; Hematocrit 36.3 % (37.0-47.0); Hemoglobin 11.5 g/dL (11.5-15.3); Lymphocytes # 0.3 10^3/uL (0.8-4.8); Lymphocytes % 13.1 %; Mean Corpuscular HGB Conc 31.7 g/dL (30.0-36.0); Mean Corpuscular Hemoglobin 30.2 pg (28.0-34.0); Mean Corpuscular Volume 95.3 fL (81-99); Mean Platelet Volume 9.6 fL (7.4-10.4); Monocytes # 0.1 10^3/uL (0.2-0.9); Monocytes % 2.4 %; Neutrophils % 82.5 %; Nucleated Red Blood Cells % 0 %; Platelet Count 163 10^3/cmm (130-400); Red Blood Count 3.81 10^6/uL (4.1-5.3); White Blood Count 2.1 10^3/uL (4.0-10.0)
[2020-01-29 10:01] LABS: Alanine Aminotransferase 9 U/L (0-33); Albumin Level 4.1 g/dL (3.5-5.2); Alkaline Phosphatase 48 IU/L (35-105); Anion Gap 19.5 (5-19); Aspartate Amino Transferase 9 U/L (0-32); Blood Urea Nitrogen 10 mg/dL (8-23); Calcium 9.2 mg/dL (8.5-10.5); Carbon Dioxide 18 mmol/L (22-29); Chloride 101 mmol/L (98-107); Globulin 3.5 g/dL (1.3-4.6); Glucose 190 mg/dL (65-115); Osmolality Calculated 279 mOsm/kg (285-295); Potassium 4.5 mmol/L (3.5-5.1); Sodium 134 mmol/L (136-145); Total Bilirubin 0.2 mg/dL (0.15-1.2); Total Protein 7.6 g/dL (6.6-8.7)
[2020-01-29] MEDS: sodium chloride 0.9% (100 ml) 100 ML 75 ML (11:34)
--- NOTE | 2020-01-30 17:14 | ONCRAD TMN_ITS ---
Radiation Oncology Weekly Treatment Management Patient: Amanda Molina MR#: [id number] : 1945> Age: 74> Sex: Female Dictated by: Dr. Matthew Sabillon Date of Service: 01/30/2020 Referring Physician(s) : Mary Berger M.D. Diagnosis: C77.1 - Secondary and unspecified malignant neoplasm of intrathoracic lymph nodes, Diagnosed 12/22/2019 (Active) C34.31 - Malignant neoplasm of lower lobe, right bronchus or lung, Diagnosed 12/18/2019 (Active) Radiotherapy to date: Course: RT Lung 2019, Treatment Site: RT [id number], Ref. ID: [id number], Energy: 6X, Dose/Fx (cGy): 180, #Fx: , Dose Correction (cGy): 0, Total Dose (cGy): 1,980, Start Date: 01/15/2020, Elapsed Days: 15 Chief Complaint/Interim History: lung cancer The patient reports moderate fatigue, moderate odynophagia, and occasional mouth sores. The patient is currently on an antibiotic secondary to a urinary tract infection. She also complains of a chemo reaction that caused a rash on her arms trunk and buttocks. She reports no hemoptysis, and no progressive shortness of breath. Current Medications: ALPRAZolam, augmentin, chplhyvffz-RFMW-Ktelmcvi, dexamethasone, eMLA, escitalopram Oxalate, famotidine, furosemide, gabapentin, hYDROcodone-Acetaminophen, lactulose, levothyroxine Sodium, lORazepam, lovastatin, metFORMIN HCl, prochlorperazine Maleate, traZODone HCl, vitamin D (Ergocalciferol). Allergies: Cymbalta, Citalopram Hydrobromide, adhesive and Taxol. Current Complaints/Review of Systems: Constitutional - Complains of lack of appetite off and on. Complains of moderate fatigue. Denies fever and night sweats. ENMT - Complains of dysphagia occasionally and stomatitis. Integumentary - Complains of rash on the arms and trunk from an allergic reaction to the chemo on Wednesday. Cardiovascular - Complains of edema in both feet. Denies chest pain. Respiratory - Denies cough, dyspnea and wheezing. Vital Signs: Performed on 01/30/2020 10:19 AM BMI - 28.19 kg/m2 (high), Height - 65.00 in, Weight - 169.4 lbs, Temperature - 976 f, Pulse - 74, Respiration - 20, O2 Sat - 100 %, Pain - 5 and BP - 126/ 73 mm(hg). Physical Exam: Appears stable, no skin erythema or desquamation. Oral cavity examination reveals no clinical exam findings consistent with mucositis or thrush. Performance Status: 3 - Capable of only limited self-care, confined to bed or chair more than 50% of waking hours. (ECOG) Lab: None pending in Radiation Oncology. Test performed on 01/29/2020 9:03 AM WBC - 2.1 10 3/ul (low), RBC - 3.81 10 6/ul (low), HCT - 36.3 % (low), Neutrophils - 1.70 10 3/ul (low), Lymphocytes - 0.3 10 3/ul (low), Monocytes - 0.1 10 3/ul (low), Sodium - 134 mmol/l (low), CO2 - 18 mmol/l (low), Anion Gap - 19.5 (high), Creatinine - 1.1 mg/dl (high), Cr Clearance (Est) - 56.0700 ml/min (low) and Glucose - 190 mg/dl (high). Imaging: All radiation therapy related imaging (including but not limited to kV, MV, and CBCT generated images) was reviewed. Appropriate changes, if any, were made to assure accurate target localization. Impression/Plan: Tolerating treatment well with expected side effects. Continue treatment as planned. CPT: 22810 Signed by: Dr. Matthew Sabillon>01/30/2020 5:13:06 PM <<Signature on File>>
--- NOTE | 2020-02-03 14:27 | ONC FU_ITS ---
[facility] Patient Note Patient: Amanda Molina Unit #: [id number]: [id number] Dictated By: Jose RosenbergDate of Visit: Jan 29, 2020 Onc MED Follow-Up/Prog Note Chief Complaint: lung cancer History of Present Illness: Mrs. Molina is a 74-year-old female with history of right lung mass, as per patient, initially, it was observed on her chest CT scan done 07/21/2017 which, at that time, it was so small, and it was decided to observe. And then she lost follow-up until recently when she underwent CT scan of chest abdomen pelvis on 10/10/2019 which showed increase in size of cavitary nodule in the right lower lobe suspicious for neoplasm, enlarged mediastinal and right hilar lymph nodes suspicious for yg metastasis subsequently on 10/25/2019, she underwent CT PET scan which confirmed hypermetabolic cavitary lesion within the subpleural right lower lobe consistent with primary pulmonary neoplasm and hypermetabolic right hilar, right lower paratracheal, and subcarinal, adenopathy. There is a hypermetabolic lymph node abutting the esophagus most consistent with paraesophageal lymph node. No contralateral hypermetabolic left hilar lymph nodes seen. No distant metastasis within the abdomen or pelvis or in the bones Subsequently patient underwent bronchoscopy on 11/13/2019 at [facility] in [place], transbronchial lymph node biopsy was done from the radius stations and pathology report reported on 12/04/2019 showed lymph nodes station 4R, positive for malignancy fragments of squamous cell carcinoma seen Lymph node station 10 R, FNA biopsy, was positive for malignancy very scant fragments of squamous cell carcinoma seen Lung right lower lobe transbronchial biopsy showed benign lung tissue, no tumor seen PDL 1 membranous positivity seen in 95% of tumor cell. Patient further, underwent CT scan of chest on 12/01/2019 which showed interval increase in size of peripheral spiculated cavitary lesion of the posterior basal segment of right lower lobe consistent with progression of the disease. And stable abnormal short axis diameter right hilar and middle mediastinal lymphadenopathy . Mild central lobular and paraseptal emphysematous changes. Mild increase in size of small pericardial effusion. Patient has history of smoking but quit 16 years ago Ms Molina was offered concurrent treatment with chemo radiation. Her chemotherapy treatment plan is weekly Carboplatin/Taxol. She began her first week on January 15, 2020. She is here today for follow-up. She is due for week 3. She states overall she is doing good but has developed a rash from above her waist down. She states it is somewhat itchy but has not been terribly bothersome. She states she noticed it 2 to 3 days ago it has gotten a little worse but seems to be a little better today. She denies any other new medication. She denies any trouble breathing. She has had no fever or chills. She denies any nausea or vomiting. She states generally the rash has been from about her waistband down her legs front and back. She has had a few spots on her chest and abdomen and on her arms but the significant amount have been on the lower extremities and waist area. She states otherwise she feels she is doing well with chemo she is had no nausea or vomiting. She denies any diarrhea or constipation. She denies mouth sores. She has had no neuropathy symptoms thus far. Her ECOG is 1. Past Medical History: Chronic back pain Chronic kidney disease (stage III) Chronic obstructive pulmonary disease Enlarged aorta Hyperlipidemia Hypertension Migraine headaches Type II diabetes Vitamin b12 deficiency Vitamin d deficiency Past Surgical History: Cataract excision Colonoscopy Hysterectomy Left femur replacement Allergies: adhesive, Citalopram Hydrobromide, Cymbalta, and Taxol. Medications: ALPRAZolam 1 Tablet (of 1 mg) Oral b.i.d. Augmentin 1 Tablet (of 875-125 mg) Oral b.i.d. for 14 weeks [id number] 1 Capsule (of 50-325-40 mg) Oral q 4 hours PRN Escitalopram Oxalate 1 Tablet (of 20 mg) Oral daily Famotidine 1 Tablet (of 40 mg) Oral b.i.d. Furosemide 1 Tablet (of 80 mg) Oral b.i.d. Gabapentin 1 Tablet (of 600 mg) Oral t.i.d. HYDROcodone-Acetaminophen 1 Tablet (of 10-325 mg) Oral q 4 hours PRN Lactulose 1 (20 g/30mL) Solution Oral b.i.d. Levothyroxine Sodium 1 Tablet (of 137 mcg) Oral daily Lovastatin 1 Tablet (of 20 mg) Oral daily metFORMIN HCl 1 Tablet (of 500 mg) Oral b.i.d. traZODone HCl 1 - 3 Tablet (of 50 mg) Oral at bedtime Vitamin D (Ergocalciferol) 1 CA 125 Units/mL (of 1.25 mg ) Capsule Oral q 7 days Family History: Ms. Molina's mother at age 79: stroke. Ms. Molina's father at age 69: lung cancer. Social History: Ms. Molina is and she is an unknown. Ms. Molina quit smoking 17 years ago but had smoked 1.5 packs/day for 8 years. She has no history of drinking. Ms. Molina reports the following support systems: lives with spouse, significant other, family, or friends, lives in own house, supportive family/friends willing to assist with needs, and adequate transportation available for expected visits. Her diet consists of regular meals. She indicates her activity level as: light exercise. Review Of Symptoms: Constitutional Denies fevers, chills, night sweats, excessive fatigue or weight loss. Eyes Denies significant visual changes. No diplopia. No amaurosis. ENMT Denies changes in hearing, sore throat, mouth sores, difficulty or changes in swallowing ability, and/or sinus drainage. Some mouth irritation due to dentures. healing presently. Endocrine No diabetes, thyroid disease or hormone replacement. Denies hot flashes or night sweats. Hematologic/Lymphatic Denies easy bruising or bleeding. The patient denies any tender or palpable lymph nodes. Respiratory Denies dyspnea on exertion, chest pain, cough or hemoptysis. Denies orthopnea. Cardiovascular Denies anginal chest pain, palpitations or orthopnea. Gastrointestinal Denies nausea, vomiting, diarrhea, GI bleeding. Denies change in bowel habits and/or stool color, no heartburn or early satiety. She states her constipation and her last treatment was some better and she did not have nausea. Genitourinary (F) DX @ [facility] [place] on Wednesday, January 26, 2020 with UTI. currently on Augmentin. Musculoskeletal Denies joint pain, swelling or redness. No decreased range of motion. Integumentary Moderate to severe rash from waist down with a scattered lesions on her arms and chest/back. Itching but not too bad . She states the rash was starting before she went to [facility]. She had Bactrim initially for UTI but was called after culture was back and changed to Augmentin. Neurologic Denies headache, blurred vision, and no areas of focal weakness or numbness. Normal gait. No sensory problems. Psychiatric Denies insomnia, depression, farida or mood swings. Vital Signs: Performed on Jan 29, 2020 10:38 Height - 65.00 in Weight - 168.0 lbs (LOW) BSA - 1.84 sq.m BMI - 27.96 Temperature - 97.9 F (LOW) Pulse - 88 /min Respiration - 20 /min BP - 105/69 mm(hg) O2 Sat - 97 % Pain - 7,2 - Ambulatory/capable of all self-care, unable to perform any work activities. Up and about more than 50% of waking hours. (ECOG) Physical Examination: Constitutional Alert, oriented, no acute distress. Skin pink, warm and dry. Head Normocephalic; atraumatic. Eyes Conjunctivae and sclerae are clear and without icterus. Pupils are reactive and equal. Neck Supple without masses or thyromegaly. No jugular venous distension. Hematologic/Lymphatic No petechiae or purpura. No tender or palpable lymph nodes in the cervical or supraclavicular areas. Back/Spine Non-tender to palpation. Extremities No visible deformities, no cyanosis, clubbing or edema. Musculoskeletal No tenderness or swelling, normal range of motion without obvious weakness. Integumentary Classic drug allergy (macro papular/slight whelp) appearing rash from waist down with scattered red raised maculopapular lesions on her arms, chest and back. Started on 01/26/2020. Neurologic No sensory or motor deficits, normal cerebellar function, normal gait-assisted with cane today. Psychiatric Alert and oriented times three. Coherent speech. Verbalizes understanding of our discussions today. Laboratory:Test performed on Jan 29, 2020 09:03 Sodium 134 mmol/L Potassium 4.5 mmol/L Chloride 101 mmol/L CO2 18 mmol/L Anion Gap 19.5 BUN 10 mg/dL Creatinine 1.1 mg/dL Cr Clearance (Est) 56.0700 mL/min Glucose 190 mg/dL Calcium 9.2 mg/dL Protein, Total 7.6 g/dL Albumin 4.1 g/dL Globulin 3.5 g/dL Bilirubin, Total 0.2 mg/dL ALT (SGPT) 9 U/L AST (SGOT) 9 U/L Alkaline Phosphatase 48 IU/L WBC 2.1 10 3/uL RBC 3.81 10 6/uL HGB 11.5 g/dL HCT 36.3 % MCV 95.3 fL MCH 30.2 pg MCHC 31.7 g/dL RDW 13.0 % Platelet Count 163 10 3/cmm MPV 9.6 fL Neutrophils 1.70 10 3/uL Lymphocytes 0.3 10 3/uL Monocytes 0.1 10 3/uL Eosinophils 0.0 10 3/uL Basophils 0.0 10 3/uL Neutrophil % 82.5 % Lymphocyte % 13.1 % Monocyte % 2.4 % Eosinophil % 0.0 % Basophils % 0.5 % NRBC % 0 % Impression: Squamous cell carcinoma per transbronchial biopsy done on 11/13/2019 reported on 12/04/2019 showed right-sided mediastinal lymph node involvement e.g. Station 4R, station 10 R, F and lymph node biopsy confirmed squamous cell carcinoma. As right lower lobe transbronchial biopsy showed benign lung tissue CT PET scan done on 10/25/2019 showed hypermetabolic cavitary lesion within the subpleural right lower lobe consistent with primary lung malignancy Hypermetabolic right hilar, right lower paratracheal, subcarinal, paraesophageal lymphadenopathy seen. No contralateral lymphadenopathy No distance metastases. Clinical stage T1c,, 2.3 x 1.5 cm (>2cm ,<3cm), N2 ,( right mediastinal and paraesophageal lymph node involvement), MX stage IIIa Diabetes mellitus, on oral hypoglycemic History of migraine headaches. Dr Berger discussed with patient regarding her disease status, and treatment options. Considering patient's age and clinical stage and comorbid condition, she is not a candidate for upfront surgery. Other treatment options include neoadjuvant chemotherapy followed by surgical evaluation or neoadjuvant combined chemoradiation followed by surgical evaluation or definitive combined chemoradiation followed by maintenance immunotherapy with durvalumab Based on patient's age, underlying pulmonary status, patient is not a candidate for surgery so definitive combined chemoradiation therapy is under consideration, we will refer her to radiation oncology for evaluation and consider weekly carboplatin/Taxol concurrent with radiation therapy, if tolerated well, may consider full dose carboplatin/Taxol every 21 days ???2 followed by maintenance therapy with durvalumab every 2 weeks ???12 months. Ms Molina began chemo/radiation on 01/15/2020. Overall she has tolerated chemotherapy well however today she presents with a suspected drug allergy rash which is most likely felt to be due to the Taxol/cremefor. We will hold her treatment today and reassess her next week. Plan: 1. Hold week 3 carboplatin paclitaxel due to suspected drug allergy rash and chemo induced neutropenia. Her ANC today is 1700 it was 3400 last week. 2. Steroid compliance confirmed. 3. Stop Aloxi for premed due to constipation. Will us Zofran instead. This has worked well for her nausea thus far. She denied any nausea with the last week's treatment. 4. She will be given Solu-Medrol 60 mg IV today. I have asked her to finish up her steroid premed instructions. She is instructed to call us if the rash is not better after the Solu-Medrol today. 5. Today's labs were reviewed in detail and discussed with Ms. Molina and a copy was given to her. White count 2.1 , hemoglobin 11.5, platelets 163,000 ANC is 1700. Potassium 4.5 random glucose 190 ( she took steroids this morning) creatinine 1.1, LFTs are normal. 5. We will plan to have her return in 1 week with CBC CMP for consideration of week 3 concurrent chemo with radiatiotherapy. We will see how her blood counts recover and if need will request a PA for Neupogen and possilbly switch her to Abraxane from the Taxol due to the rash. 6. Ms. Molina was instructed to contact us in the interim should questions or problems arise. Signed By: Jose Rosenberg-, AOCNP Mary Berger MD <<Signature on File>>
[2020-02-05 09:26] LABS: Basophils % 0.6 %; Eosinophils % 0.9 %; Hemoglobin 11.2 g/dL (11.5-15.3); Lymphocytes # 0.4 10^3/uL (0.8-4.8); Mean Corpuscular HGB Conc 31.1 g/dL (30.0-36.0); Mean Corpuscular Hemoglobin 29.5 pg (28.0-34.0); Mean Corpuscular Volume 94.7 fL (81-99); Mean Platelet Volume 8.9 fL (7.4-10.4); Monocytes # 0.4 10^3/uL (0.2-0.9); Monocytes % 10.8 %; Neutrophils # 2.45 10^3/uL (1.8-7.7); Neutrophils % 75.4 %; Nucleated Red Blood Cells % 0 %; Platelet Count 104 10^3/cmm (130-400); Red Cell Distribution Width 13.2 % (12.1-15.1); White Blood Count 3.3 10^3/uL (4.0-10.0)
[2020-02-05 09:41] LABS: Alanine Aminotransferase 10 U/L (0-33); Albumin Level 3.9 g/dL (3.5-5.2); Alkaline Phosphatase 55 IU/L (35-105); Anion Gap 15.1 (5-19); Aspartate Amino Transferase 13 U/L (0-32); Blood Urea Nitrogen 10 mg/dL (8-23); Calcium 8.6 mg/dL (8.5-10.5); Carbon Dioxide 24 mmol/L (22-29); Chloride 104 mmol/L (98-107); Glucose 115 mg/dL (65-115); Osmolality Calculated 285 mOsm/kg (285-295); Potassium 4.1 mmol/L (3.5-5.1); Sodium 139 mmol/L (136-145); Total Bilirubin 0.2 mg/dL (0.15-1.2); Total Protein 6.9 g/dL (6.6-8.7)
[2020-02-05] MEDS: sodium chloride 0.9% 250 ML 75 ML IV (11:15)
--- NOTE | 2020-02-05 16:16 | ONC FU_ITS ---
Dr. Berger follow up note Patient: Amanda Molina Unit #: [id number]: [id number] Dicatated By: Mary Berger M.D.Date of Visit:Feb 05, 2020 Onc Med Follow-up/Prog Note History of Present Illness: Mrs. Molina is a 74-year-old female with history of right lung mass, as per patient, initially, it was observed on her chest CT scan done 07/21/2017 which, at that time, it was so small, and it was decided to observe. And then she lost follow-up until recently when she underwent CT scan of chest abdomen pelvis on 10/10/2019 which showed increase in size of cavitary nodule in the right lower lobe suspicious for neoplasm, enlarged mediastinal and right hilar lymph nodes suspicious for yg metastasis subsequently on 10/25/2019, she underwent CT PET scan which confirmed hypermetabolic cavitary lesion within the subpleural right lower lobe consistent with primary pulmonary neoplasm and hypermetabolic right hilar, right lower paratracheal, and subcarinal, adenopathy. There is a hypermetabolic lymph node abutting the esophagus most consistent with paraesophageal lymph node. No contralateral hypermetabolic left hilar lymph nodes seen. No distant metastasis within the abdomen or pelvis or in the bones Subsequently patient underwent bronchoscopy on 11/13/2019 at [facility] in [place], transbronchial lymph node biopsy was done from the radius stations and pathology report reported on 12/04/2019 showed lymph nodes station 4R, positive for malignancy fragments of squamous cell carcinoma seen Lymph node station 10 R, FNA biopsy, was positive for malignancy very scant fragments of squamous cell carcinoma seen Lung right lower lobe transbronchial biopsy showed benign lung tissue, no tumor seen PDL 1 membranous positivity seen in 95% of tumor cell. Patient further, underwent CT scan of chest on 12/01/2019 which showed interval increase in size of peripheral spiculated cavitary lesion of the posterior basal segment of right lower lobe consistent with progression of the disease. And stable abnormal short axis diameter right hilar and middle mediastinal lymphadenopathy . Mild central lobular and paraseptal emphysematous changes. Mild increase in size of small pericardial effusion. Patient has history of smoking but quit 16 years ago Ms Molina was offered concurrent treatment with chemo radiation. Her chemotherapy treatment plan is weekly Carboplatin/Taxol. She began her first week on January 15, 2020. After 2 weekly doses of carbo/Taxol she developed a rash from above her waist down. She stated it is somewhat itchy but has not been terribly bothersome. It was progressive . She denied any other new medication. She denied any trouble breathing. She has had no fever or chills. She stated , generally the rash had been from about her waistband down her legs front and back. She has had a few spots on her chest and abdomen and on her arms but the significant amount have been on the lower extremities and waist area. Taxol was discontinued and she was switched to weekly Abraxane along with weekly carboplatin on February 05, 2020 and her chemotherapy was also delayed because of progressive leukopenia and thrombocytopenia, planning was to add Neupogen in between to maintain chemotherapy schedule Came for follow-up, denies any specific complaints today, rash involving her pelvis and thighs, no has resolved. No fever chills, no nausea or vomiting, no diarrhea constipation, no mouth sores, no oral thrush, no diarrhea, no jaundice, no numbness. Tolerating combined chemoradiation well otherwise, patient did not take steroids as she has been switched to weekly Abraxane from weekly Taxol along with weekly carboplatin concurrent with radiation therapy. Medications: ALPRAZolam 1 Tablet (of 1 mg) Oral b.i.d., Augmentin 1 Tablet (of 875-125 mg) Oral b.i.d. for 14 weeks, [id number] 1 Capsule (of 50-325-40 mg) Oral q 4 hours PRN, Escitalopram Oxalate 1 Tablet (of 20 mg) Oral daily, Famotidine 1 Tablet (of 40 mg) Oral b.i.d., Furosemide 1 Tablet (of 80 mg) Oral b.i.d., Gabapentin 1 Tablet (of 600 mg) Oral t.i.d., HYDROcodone-Acetaminophen 1 Tablet (of 10-325 mg) Oral q 4 hours PRN, Lactulose 1 (20 g/30mL) Solution Oral b.i.d., Levothyroxine Sodium 1 Tablet (of 137 mcg) Oral daily, Lovastatin 1 Tablet (of 20 mg) Oral daily, metFORMIN HCl 1 Tablet (of 500 mg) Oral b.i.d., traZODone HCl 1 - 3 Tablet (of 50 mg) Oral at bedtime, Vitamin D (Ergocalciferol) 1 CA 125 Units/mL (of 1.25 mg ) Capsule Oral q 7 days Allergies: adhesive, Citalopram Hydrobromide, Cymbalta, and Taxol. Review of Systems: Constitutional - Appetite is diminished and weight is stable. No fever, night sweats, or hot flashes. Energy level is poor, ENMT - Positive for sinus congestion/drainage. No mouth sores. Positive for sore throat and difficulty swallowing, Hematologic/Lymphatic - Positive for easy bruising, Respiratory - Positive for shortness of breath. No cough. No pleuritic pain or hemoptysis, Cardiovascular - No angina pain. No palpitations, Gastrointestinal - No nausea or vomiting. No heartburn or acid reflux. No diarrhea. Positive for constipation. No blood in the stool or black stools, Genitourinary (F) - No dysuria or hematuria. No urinary frequency. No urgency. Positive for incontinence, Musculoskeletal - Positive for joint pain, Neurologic - Positive for headache, dizziness. No numbness or tingling. No other focal neurologic symptoms, Psychiatric - Positive for anxiety and depression. No insomnia. Vital Signs: Performed on Feb 05, 2020 13:55 Height - 65.00 in Temperature - 97.1 F (LOW) Pulse - 97 /min Respiration - 18 /min BP - 114/73 mm(hg) O2 Sat - 98 % Pain - 0 Fatigue - 0 Performed on Feb 05, 2020 09:38 Height - 65.00 in Weight - 167.8 lbs (LOW) BSA - 1.84 sq.m BMI - 27.92 Temperature - 98.5 F Pulse - 92 /min Respiration - 18 /min BP - 107/71 mm(hg) O2 Sat - 96 % Pain - 4 Performance Status: 1 - No physically strenuous activity, but ambulatory and able to carry out light or sedentary work (e.g. office work, light house work). (ECOG) Physical Examination: ENMT - No mouth sores, no thrush, no jaundice, Respiratory - Lungs are clear, Cardiovascular - Regular rate and rhythm of heart, Abdomen - Soft, bowel sounds present, Extremities - No visible edema. Lab/Imaging: Test performed on Feb 05, 2020 09:09 Sodium 139 mmol/L Potassium 4.1 mmol/L Chloride 104 mmol/L CO2 24 mmol/L Anion Gap 15.1 BUN 10 mg/dL Creatinine 0.9 mg/dL Cr Clearance (Est) 64.9700 mL/min Glucose 115 mg/dL Calcium 8.6 mg/dL Protein, Total 6.9 g/dL Albumin 3.9 g/dL Globulin 3.0 g/dL Bilirubin, Total 0.2 mg/dL ALT (SGPT) 10 U/L AST (SGOT) 13 U/L Alkaline Phosphatase 55 IU/L WBC 3.3 10 3/uL RBC 3.80 10 6/uL HGB 11.2 g/dL HCT 36.0 % MCV 94.7 fL MCH 29.5 pg MCHC 31.1 g/dL RDW 13.2 % Platelet Count 104 10 3/cmm MPV 8.9 fL Neutrophils 2.45 10 3/uL Lymphocytes 0.4 10 3/uL Monocytes 0.4 10 3/uL Eosinophils 0.0 10 3/uL Basophils 0.0 10 3/uL Neutrophil % 75.4 % Lymphocyte % 12.0 % Monocyte % 10.8 % Eosinophil % 0.9 % Basophils % 0.6 % NRBC % 0 % Test performed on Jan 15, 2020 09:42 CBC Slide Review Slide Review Perform SLIDE REVIEW AGREES WITH AUTOMATED RESULTS ST Impression: Squamous cell carcinoma per transbronchial biopsy done on 11/13/2019 reported on 12/04/2019 showed right-sided mediastinal lymph node involvement e.g. Station 4R, station 10 R, F and lymph node biopsy confirmed squamous cell carcinoma. As right lower lobe transbronchial biopsy showed benign lung tissue CT PET scan done on 10/25/2019 showed hypermetabolic cavitary lesion within the subpleural right lower lobe consistent with primary lung malignancy Hypermetabolic right hilar, right lower paratracheal, subcarinal, paraesophageal lymphadenopathy seen. No contralateral lymphadenopathy No distance metastases. Clinical stage T1c,, 2.3 x 1.5 cm (>2cm ,<3cm), N2 ,( right mediastinal and paraesophageal lymph node involvement), MX stage IIIa Diabetes mellitus, on oral hypoglycemic History of migraine headaches. discussed with patient regarding her disease status, and treatment options. Considering patient's age and clinical stage and comorbid condition, she is not a candidate for upfront surgery. Other treatment options include neoadjuvant chemotherapy followed by surgical evaluation or neoadjuvant combined chemoradiation followed by surgical evaluation or definitive combined chemoradiation followed by maintenance immunotherapy with durvalumab Based on patient's age, underlying pulmonary status, patient is not a candidate for surgery so definitive combined chemoradiation therapy is under consideration, we will refer her to radiation oncology for evaluation and consider weekly carboplatin/Taxol concurrent with radiation therapy, if tolerated well, may consider full dose carboplatin/Taxol every 21 days ???2 followed by maintenance therapy with durvalumab every 2 weeks ???12 months. Ms Molina began chemo/radiation on 01/15/2020. Overall she has tolerated chemotherapy well however lateron After 2 weekly dose of carboplatin/Taxol she did develop suspected drug allergy rash which is most likely felt to be due to the Taxol/cremefor. She was given dose of Solu-Medrol 60 mg on January 29, 2020 for the rash, which resolved later on and Taxol was discontinued and she was switched to weekly Abraxane/carboplatin concurrent with radiation therapy on February 05, 2020 Plan: Discussed with patient regarding her labs white blood count 3.3 hemoglobin 11.2 hematocrit 36 platelets 104,000 with ANC 2450 and CMP within normal limits Clinically, patient doing reasonably well tolerating combined chemoradiation well but with expected side effects. Patient did develop skin rash involving pelvis and upper thighs, she was given dose of Solu-Medrol and was resumed her rash was probably due to Taxol and being diabetic patient was also having issues with hypoglycemia due to steroid use as premedication, so her chemotherapy was changed from Taxol to weekly Abraxane along with weekly carboplatin concurrent with radiation therapy on February 05, 2020. We will proceed with a weekly dose of carboplatin and Abraxane today and will also adjust her carboplatin dose to 145 mg as patient has progressive leukopenia and thrombocytopenia and she will continue with same dose during radiation therapy. She will return to clinic in 1 week with CBC CMP and a blood count looks reasonable for the next weekly dose with modified dose carboplatin/Abraxane concurrent with radiation therapy. I will monitor her platelet counts closely and also consider Neupogen to prevent chemotherapy-induced neutropenia and to maintain chemotherapy schedule. Signed By: Mary Berger M.D. <<Signature on File>>
--- NOTE | 2020-02-06 13:23 | ONCRAD TMN_ITS ---
Radiation Oncology Weekly Treatment Management Patient: Amanda Molina MR#: [id number] : 1945> Age: 74> Sex: Female Dictated by: Dr. Matthew Sabillon Date of Service: 02/06/2020 Referring Physician(s) : Mary Berger Diagnosis: C77.1 - Secondary and unspecified malignant neoplasm of intrathoracic lymph nodes, Diagnosed 12/22/2019 (Active) C34.31 - Malignant neoplasm of lower lobe, right bronchus or lung, Diagnosed 12/18/2019 (Active) Radiotherapy to date: Course: RT Lung 2019, Treatment Site: RT [id number], Ref. ID: [id number], Energy: 6X, Dose/Fx (cGy): 180, #Fx: , Dose Correction (cGy): 0, Total Dose (cGy): 2,880, Start Date: 01/15/2020, Elapsed Days: 22 Interim history: The patient reports that she now has a rash after being switched to weekly Abraxane from weekly carbotaxol concurrent with radiation. She will see her medical oncologist later on today. Aside from the new rash, she reports moderate fatigue, a healthy appetite, and no progressive shortness of breath. Current Medications: Abraxane, aLPRAZolam, augmentin, zoapbdsljn-VCQS-Iqvsrldn, cARBOplatin, dexamethasone, dexamethasone Sodium Phosphate, diphenhydrAMINE HCl, eMLA, escitalopram Oxalate, famotidine, famotidine in NaCl, furosemide, gabapentin, hYDROcodone-Acetaminophen, lactulose, levothyroxine Sodium, lORazepam, lovastatin, metFORMIN HCl, mouthwash Compounding Base, neupogen, palonosetron HCl, prochlorperazine Maleate, traZODone HCl, vitamin D (Ergocalciferol). Allergies: Cymbalta, Citalopram Hydrobromide, adhesive and Taxol. Current Complaints/Review of Systems: Constitutional - Complains of moderate fatigue. Denies lack of appetite, fever, night sweats and change in weight. ENMT - Complains of stomatitis. Denies dysphagia. Integumentary - Complains of rash which started today. Cardiovascular - Denies chest pain and edema. Respiratory - Complains of cough occasionally. Denies dyspnea, hemoptysis and wheezing. Vital Signs: Performed on 02/06/2020 10:18 AM BMI - 28.123 kg/m2 (high), Height - 65.00 in, Weight - 169.0 lbs, Temperature - 98.8 f, Pulse - 89, Respiration - 20, O2 Sat - 99 %, Pain - 0 and BP - 135/ 79 mm(hg). Physical Exam: Appears stable, no skin erythema or desquamation. Performance Status: 1 - No physically strenuous activity, but ambulatory and able to carry out light or sedentary work (e.g. office work, light house work). (ECOG) Lab: None pending in Radiation Oncology. Test performed on 02/05/2020 9:09 AM WBC - 3.3 10 3/ul (low), RBC - 3.80 10 6/ul (low), HGB - 11.2 g/dl (low), HCT - 36.0 % (low), Platelet Count - 104 10 3/cmm (low), Lymphocytes - 0.4 10 3/ul (low) and Cr Clearance (Est) - 64.9700 ml/min (low). Imaging: All radiation therapy related imaging (including but not limited to kV, MV, and CBCT generated images) was reviewed. Appropriate changes, if any, were made to assure accurate target localization. Impression/Plan: Tolerating treatment well with expected side effects. Continue treatment as planned. CPT: 38911 Signed by: Dr. Matthew Sabillon>02/06/2020 1:21:38 PM <<Signature on File>>
[2020-02-12] MEDS: sodium chloride 0.9% 250 ML 999 ML IV (09:09)
[2020-02-12 10:02] LABS: Basophils % 0.7 %; Eosinophils % 1.1 %; Hematocrit 36.3 % (37.0-47.0); Hemoglobin 11.4 g/dL (11.5-15.3); Lymphocytes # 0.4 10^3/uL (0.8-4.8); Lymphocytes % 12.9 %; Mean Corpuscular HGB Conc 31.4 g/dL (30.0-36.0); Mean Corpuscular Hemoglobin 29.8 pg (28.0-34.0); Mean Corpuscular Volume 94.8 fL (81-99); Mean Platelet Volume 9.5 fL (7.4-10.4); Monocytes # 0.3 10^3/uL (0.2-0.9); Monocytes % 12.2 %; Neutrophils % 71.7 %; Nucleated Red Blood Cells % 0 %; Platelet Count 93 10^3/cmm (130-400); Red Blood Count 3.83 10^6/uL (4.1-5.3); Red Cell Distribution Width 13.9 % (12.1-15.1); White Blood Count 2.8 10^3/uL (4.0-10.0)
[2020-02-12 10:09] LABS: Alanine Aminotransferase 12 U/L (0-33); Alkaline Phosphatase 50 IU/L (35-105); Anion Gap 15.7 (5-19); Aspartate Amino Transferase 16 U/L (0-32); Blood Urea Nitrogen 19 mg/dL (8-23); Calcium 8.6 mg/dL (8.5-10.5); Carbon Dioxide 26 mmol/L (22-29); Chloride 102 mmol/L (98-107); Globulin 2.8 g/dL (1.3-4.6); Glucose 99 mg/dL (65-115); Osmolality Calculated 287 mOsm/kg (285-295); Potassium 3.7 mmol/L (3.5-5.1); Sodium 140 mmol/L (136-145); Total Bilirubin 0.3 mg/dL (0.15-1.2); Total Protein 6.8 g/dL (6.6-8.7)
--- NOTE | 2020-02-13 08:27 | US_ITS ---
WS: [id number] ULTRASOUND ABDOMEN LIMITED CLINICAL INFORMATION: RUQ PAIN/DIARRHEA COMPARISON: None. FINDINGS: Liver Size: Normal. Craniocaudal length: 16.1 cm. Echogenicity: Normal. Surface nodularity: None. Mass (size and location): None. Bile ducts Intrahepatic ducts: Normal. Common bile duct diameter: 0.6 cm. Gallbladder Normal. Gallstones: None. Gallbladder sludge: None. Gallbladder wall thickening: None. Pericholecystic fluid: None. Sonographic Barreto sign: Absent. Pancreas Normal as visualized. Right kidney: Normal. Hydronephrosis: None. Size: 9.4 cm x 5.0 cm x 6.4 cm. Minimal aneurysmal abdominal aorta measuring 2.6 x 2.5 cm Visualized portions are normal. Ascites: None. US/US gall bladder 25513 IMPRESSION: 1. Minimal aneurysmal dilatation, aorta measuring 2.6 x 2.5 cm 2. Otherwise Normal abdominal ultrasound
[2020-02-13] MEDS: sodium chloride 0.9% 1,000 ML 999 ML IV (12:00)
--- NOTE | 2020-02-14 08:21 | ONCRAD TMN_ITS ---
Radiation Oncology Weekly Treatment Management Patient: Amanda Molina MR#: [id number] : 1945 Age: 74 Sex: Female Dictated by: Dr. Matthew Sabillon Date of Service: 02/13/2020 Referring Physician(s) : Mary Berger M.D. Diagnosis: C77.1 - Secondary and unspecified malignant neoplasm of intrathoracic lymph nodes, Diagnosed 12/22/2019 (Active) C34.31 - Malignant neoplasm of lower lobe, right bronchus or lung, Diagnosed 12/18/2019 (Active) Radiotherapy to date: Course: RT Lung 2019, Treatment Site: RT [id number], Ref. ID: [id number], Energy: 6X, Dose/Fx (cGy): 180, #Fx: , Dose Correction (cGy): 0, Total Dose (cGy): 3,780, Start Date: 01/15/2020, Elapsed Days: 29 Interim history: lung cancer Patient is seen today as part of her regularly scheduled weekly on treatment visit. Her weight is down 3.8 pounds, she has a poor appetite, and she complains that food does not taste good. The patient is also been complaining of right upper quadrant pain, and this prompted an ultrasound of the abdomen. This revealed minimal aneurysmal dilatation of the aorta measuring 2.6 x 2.5 cm and an otherwise normal abdominal ultrasound. Current Medications: ALPRAZolam, augmentin, cbomaugwkm-KCEB-Vycchizg, dexamethasone, dexamethasone Sodium Phosphate, diphenhydrAMINE HCl, eMLA, escitalopram Oxalate, famotidine, furosemide, gabapentin, hYDROcodone-Acetaminophen, lactulose, levothyroxine Sodium, lovastatin, magnesium Sulfate, metFORMIN HCl, mouthwash Compounding Base, neupogen, potassium Chloride, prochlorperazine Maleate, sodium Chloride, traZODone HCl, vitamin D (Ergocalciferol). Allergies: Cymbalta, Citalopram Hydrobromide, adhesive and Taxol. Current Complaints/Review of Systems: Constitutional - Complains of a poor appetite. Complains of moderate fatigue. Complains of change in weight in which she is down 3.8 lbs. since last OTV 02/06/20.. Denies fever and night sweats. ENMT - Complains of stomatitis and altered taste. Denies dysphagia. Integumentary - Has no redness to the area of treatment. Cardiovascular - Denies arrhythmias, chest pain and edema. Respiratory - Complains of a mild cough which is non-productive. Complains of dyspnea associated with normal activity. Complains of wheezing at times. Denies hemoptysis. Vital Signs: Performed on 02/13/2020 10:10 AM BMI - 27.491 kg/m2 (high), Height - 65.00 in, Weight - 165.2 lbs, Temperature - 98.2 f, Pulse - 94, Respiration - 20, O2 Sat - 97 %, Pain - 7 and BP - 119/ 81 mm(hg). Physical Exam: Appears stable, no skin erythema or desquamation. Lungs are clear to auscultation. Performance Status: 2 - Ambulatory/capable of all self-care, unable to perform any work activities. Up and about more than 50% of waking hours. (ECOG) Lab: None pending in Radiation Oncology. Test performed on 02/12/2020 9:09 AM WBC - 2.8 10 3/ul (low), RBC - 3.83 10 6/ul (low), HGB - 11.4 g/dl (low), HCT - 36.3 % (low), Platelet Count - 93 10 3/cmm (low) and Lymphocytes - 0.4 10 3/ul (low). Imaging: No new diagnostic imaging was performed since the last weekly treatment visit. All radiation therapy related imaging (including but not limited to kV, MV, and CBCT generated images) was reviewed. Appropriate changes, if any, were made to assure accurate target localization. Impression/Plan: Tolerating treatment well with expected side effects. Continue treatment as planned. CPT: 70246 Signed by: Dr. Matthew Sabillon>02/14/2020 8:20:06 AM <<Signature on File>>
[2020-02-14] MEDS: sodium chloride 0.9% 250 ML 75 ML IV (09:30)
[2020-02-14 09:44] LABS: Basophils % 0.5 %; Eosinophils % 0.7 %; Hematocrit 34.7 % (37.0-47.0); Hemoglobin 10.8 g/dL (11.5-15.3); Lymphocytes # 0.3 10^3/uL (0.8-4.8); Lymphocytes % 8.1 %; Mean Corpuscular HGB Conc 31.1 g/dL (30.0-36.0); Mean Corpuscular Hemoglobin 29.4 pg (28.0-34.0); Mean Corpuscular Volume 94.6 fL (81-99); Mean Platelet Volume 9.5 fL (7.4-10.4); Monocytes # 0.3 10^3/uL (0.2-0.9); Monocytes % 7.1 %; Neutrophils # 3.48 10^3/uL (1.8-7.7); Neutrophils % 82.4 %; Nucleated Red Blood Cells % 0 %; Platelet Count 103 10^3/cmm (130-400); Red Blood Count 3.67 10^6/uL (4.1-5.3); Red Cell Distribution Width 14.2 % (12.1-15.1); White Blood Count 4.2 10^3/uL (4.0-10.0)
[2020-02-14 10:00] LABS: Alanine Aminotransferase 8 U/L (0-33); Alkaline Phosphatase 47 IU/L (35-105); Anion Gap 13.9 (5-19); Aspartate Amino Transferase 12 U/L (0-32); Blood Urea Nitrogen 13 mg/dL (8-23); Calcium 8.8 mg/dL (8.5-10.5); Carbon Dioxide 23 mmol/L (22-29); Chloride 108 mmol/L (98-107); Globulin 2.4 g/dL (1.3-4.6); Glucose 103 mg/dL (65-115); Lipase 16 U/L (13-60); Osmolality Calculated 288 mOsm/kg (285-295); Potassium 3.9 mmol/L (3.5-5.1); Sodium 141 mmol/L (136-145); Total Bilirubin 0.2 mg/dL (0.15-1.2); Total Protein 6.4 g/dL (6.6-8.7)
[2020-02-14] MEDS: acyclovir 700 MG in sodium chloride 0.9% (100 ml) 100 ML 120 MG IV (11:30)
[2020-02-14] MEDS: FUROsemide 10 mg/mL SDV 2mL 20 MG IV (13:48)
[2020-02-14] MEDS: potassium chloride 20 MEQ in sodium chloride 0.9% 500 ML 250 MEQ IV (13:50)
--- NOTE | 2020-02-16 09:30 | ONC FU_ITS ---
[facility] Patient Note Patient: Amanda Molina Unit #: [id number]: 1945 Dictated By: Jose RosenbergDate of Visit: Feb 12, 2020 Onc MED Follow-Up/Prog Note Chief Complaint: lung cancer History of Present Illness: Mrs. Molina is a 74-year-old female with history of right lung mass, as per patient, initially, it was observed on her chest CT scan done 07/21/2017 which, at that time, it was so small, and it was decided to observe. And then she lost follow-up until recently when she underwent CT scan of chest abdomen pelvis on 10/10/2019 which showed increase in size of cavitary nodule in the right lower lobe suspicious for neoplasm, enlarged mediastinal and right hilar lymph nodes suspicious for yg metastasis subsequently on 10/25/2019, she underwent CT PET scan which confirmed hypermetabolic cavitary lesion within the subpleural right lower lobe consistent with primary pulmonary neoplasm and hypermetabolic right hilar, right lower paratracheal, and subcarinal, adenopathy. There is a hypermetabolic lymph node abutting the esophagus most consistent with paraesophageal lymph node. No contralateral hypermetabolic left hilar lymph nodes seen. No distant metastasis within the abdomen or pelvis or in the bones Subsequently patient underwent bronchoscopy on 11/13/2019 at [facility] in [place], transbronchial lymph node biopsy was done from the radius stations and pathology report reported on 12/04/2019 showed lymph nodes station 4R, positive for malignancy fragments of squamous cell carcinoma seen Lymph node station 10 R, FNA biopsy, was positive for malignancy very scant fragments of squamous cell carcinoma seen Lung right lower lobe transbronchial biopsy showed benign lung tissue, no tumor seen PDL 1 membranous positivity seen in 95% of tumor cell. Patient further, underwent CT scan of chest on 12/01/2019 which showed interval increase in size of peripheral spiculated cavitary lesion of the posterior basal segment of right lower lobe consistent with progression of the disease. And stable abnormal short axis diameter right hilar and middle mediastinal lymphadenopathy . Mild central lobular and paraseptal emphysematous changes. Mild increase in size of small pericardial effusion. Patient has history of smoking but quit 16 years ago Ms Molina was offered concurrent treatment with chemo radiation. Her chemotherapy treatment plan is weekly Carboplatin/Taxol. She began her first week on January 15, 2020. After 2 weekly doses of carbo/Taxol she developed a rash from above her waist down. She stated it is somewhat itchy but has not been terribly bothersome. It was progressive . She denied any other new medication. She denied any trouble breathing. She has had no fever or chills. She stated , generally the rash had been from about her waistband down her legs front and back. She has had a few spots on her chest and abdomen and on her arms but the significant amount have been on the lower extremities and waist area. Taxol was discontinued and she was switched to weekly Abraxane along with weekly carboplatin on February 05, 2020 and her chemotherapy was also delayed because of progressive leukopenia and thrombocytopenia. The current treatment plan was to add Neupogen in between to maintain chemotherapy schedule but she developed a drug allergy rash once again after the first dose of Carboplatin/Abraxane. Her new treatment plan is weekly single agent Cisplatin along with radiation. Ms. Molina is here today to begin her first cycle of cisplatin. She has no new concerns regarding the chemotherapy. She states she has been having some right upper quadrant pain is been there for about a week or 2. She states is gotten worse over the last few days. She states that it hurts after she eats and she has had some yellowish looking diarrhea . She states has really strong sour smell as well. She states if she can roll up on her side the pain is eased but not totally relieved. She is had a little bit of nausea she states and is just generalized weakness but the weakness does not seem to be affecting her ADLs at this point. She states she is had a little shortness of breath but her main concern today is right upper quadrant pain. She has not noticed any jaundice or skin color changes. She denies any emesis. States she is trying to eat fairly well some days are better than others. She denies any fever or chills. Her ECOG is 2. Past Medical History: Chronic back pain Chronic kidney disease (stage III) Chronic obstructive pulmonary disease Enlarged aorta Hyperlipidemia Hypertension Migraine headaches Type II diabetes Vitamin b12 deficiency Vitamin d deficiency Past Surgical History: Cataract excision Colonoscopy Hysterectomy Left femur replacement Allergies: adhesive, Citalopram Hydrobromide, Cymbalta, and Taxol. Medications: ALPRAZolam 1 Tablet (of 1 mg) Oral b.i.d. Augmentin 1 Tablet (of 875-125 mg) Oral b.i.d. for 14 weeks Mbzxxbslrj-NMCQ-Nsdjsmno 1 Capsule (of 50-325-40 mg) Oral q 4 hours PRN Escitalopram Oxalate 1 Tablet (of 20 mg) Oral daily Famotidine 1 Tablet (of 40 mg) Oral b.i.d. Furosemide 1 Tablet (of 80 mg) Oral b.i.d. Gabapentin 1 Tablet (of 600 mg) Oral t.i.d. HYDROcodone-Acetaminophen 1 Tablet (of 10-325 mg) Oral q 4 hours PRN Lactulose 1 (20 g/30mL) Solution Oral b.i.d. Levothyroxine Sodium 1 Tablet (of 137 mcg) Oral daily Lovastatin 1 Tablet (of 20 mg) Oral daily metFORMIN HCl 1 Tablet (of 500 mg) Oral b.i.d. traZODone HCl 1 - 3 Tablet (of 50 mg) Oral at bedtime Vitamin D (Ergocalciferol) 1 CA 125 Units/mL (of 1.25 mg ) Capsule Oral q 7 days Family History: Ms. Molina's mother at age 79: stroke. Ms. Molina's father at age 69: lung cancer. Social History: Ms. Molina is and she is an unknown. Ms. Molina quit smoking 17 years ago but had smoked 1.5 packs/day for 8 years. She has no history of drinking. Ms. Molina reports the following support systems: lives with spouse, significant other, family, or friends, lives in own house, supportive family/friends willing to assist with needs, and adequate transportation available for expected visits. Her diet consists of regular meals. She indicates her activity level as: light exercise. Review Of Symptoms: Constitutional Denies fevers, chills, night sweats, excessive fatigue or weight loss. Generalized weakness. Allergic/Immunologic No reactions. Eyes Denies significant visual changes. No diplopia. No amaurosis. ENMT Denies changes in hearing, sore throat, mouth sores, difficulty or changes in swallowing ability, and/or sinus drainage. Some mouth irritation due to dentures. healing presently. Hematologic/Lymphatic Denies easy bruising or bleeding. The patient denies any tender or palpable lymph nodes. Respiratory Denies worsening dyspnea on exertion. She denies chest pain, cough or hemoptysis. Denies orthopnea. Cardiovascular Denies anginal chest pain, palpitations or orthopnea. Gastrointestinal She states she has been having some nausea and some generalized weakness. She states the nausea she thinks is because because she is having what she describes as right upper quadrant pain. She is also had stools that are yellow in color smell really bad she states they have a strong sour smell . She states the discomfort in the right upper quadrant is more of an aching. It is worse when she eats or tries to do Ensure. If she can roll over to her side the pain does seem to ease some. She denies any fever or chills associated with the pain. She has had no urinary changes. She states she is not been eating really good because of the pain and because she did not want make it worse with trying to eat. Genitourinary (F) UTI recovered and no concerns today. Musculoskeletal Denies joint pain, swelling or redness. No decreased range of motion. Integumentary Moderate to severe rash from waist down with a scattered lesions on her arms and chest/back. Itching but not too bad . She states the rash was starting before she went to [facility]. She had Bactrim initially for UTI but was called after culture was back and changed to Augmentin. Neurologic Denies headache, blurred vision, and no areas of focal weakness or numbness. Normal gait. No sensory problems. Psychiatric Denies insomnia, depression, farida or mood swings. Vital Signs: Performed on Feb 12, 2020 10:30 Height - 65.00 in Weight - 164.4 lbs (LOW) BSA - 1.82 sq.m BMI - 27.36 Temperature - 97.2 F (LOW) Pulse - 98 /min Respiration - 18 /min BP - 127/71 mm(hg) O2 Sat - 96 % Pain - 6,2 - Ambulatory/capable of all self-care, unable to perform any work activities. Up and about more than 50% of waking hours. (ECOG) Physical Examination: Constitutional Alert, oriented, no acute distress. Skin pink, warm and dry. Head Normocephalic; atraumatic. Eyes Conjunctivae and sclerae are clear and without icterus. Pupils are reactive and equal. Neck Supple without masses or thyromegaly. No jugular venous distension. Hematologic/Lymphatic No petechiae or purpura. No tender or palpable lymph nodes in the cervical or supraclavicular areas. Respiratory Lungs are clear to auscultation without rhonchi or wheezing. Cardiovascular Regular rate and rhythm of heart without murmurs,clicks, gallops or rubs. Abdomen RUQ mildly tender on deep palpation but rest of the abdomen is non-tender. She has not had any masses or ascites. Good bowel sounds noted in all quads. No guarding or rebound tenderness. No pulsatile masses. Back/Spine Non-tender to palpation. Extremities No visible deformities, no cyanosis, clubbing or edema. Musculoskeletal No tenderness or swelling, normal range of motion without obvious weakness. Integumentary Classic drug allergy (macro papular/slight whelp) appearing rash from waist down with scattered red raised maculopapular lesions on her arms, chest and back. Started on 01/26/2020. This rash has resolved with only a slight redness fading rash on her forearms. Neurologic No sensory or motor deficits, normal cerebellar function, normal gait-assisted with cane today. Psychiatric Alert and oriented times three. Coherent speech. Verbalizes understanding of our discussions today. Laboratory:Test performed on Feb 14, 2020 09:20 Sodium 141 mmol/L Potassium 3.9 mmol/L Chloride 108 mmol/L CO2 23 mmol/L Anion Gap 13.9 BUN 13 mg/dL Creatinine 0.7 mg/dL Cr Clearance (Est) 84.0400 mL/min Glucose 103 mg/dL Calcium 8.8 mg/dL Protein, Total 6.4 g/dL Albumin 4.0 g/dL Globulin 2.4 g/dL Bilirubin, Total 0.2 mg/dL ALT (SGPT) 8 U/L AST (SGOT) 12 U/L Alkaline Phosphatase 47 IU/L WBC 4.2 10 3/uL RBC 3.67 10 6/uL HGB 10.8 g/dL HCT 34.7 % MCV 94.6 fL MCH 29.4 pg MCHC 31.1 g/dL RDW 14.2 % Platelet Count 103 10 3/cmm MPV 9.5 fL Neutrophils 3.48 10 3/uL Lymphocytes 0.3 10 3/uL Monocytes 0.3 10 3/uL Eosinophils 0.0 10 3/uL Basophils 0.0 10 3/uL Neutrophil % 82.4 % Lymphocyte % 8.1 % Monocyte % 7.1 % Eosinophil % 0.7 % Basophils % 0.5 % NRBC % 0 % Test performed on Jan 15, 2020 09:42 CBC Slide Review Slide Review Perform SLIDE REVIEW AGREES WITH AUTOMATED RESULTS ST Impression: Squamous cell carcinoma per transbronchial biopsy done on 11/13/2019 reported on 12/04/2019 showed right-sided mediastinal lymph node involvement e.g. Station 4R, station 10 R, F and lymph node biopsy confirmed squamous cell carcinoma. As right lower lobe transbronchial biopsy showed benign lung tissue CT PET scan done on 10/25/2019 showed hypermetabolic cavitary lesion within the subpleural right lower lobe consistent with primary lung malignancy Hypermetabolic right hilar, right lower paratracheal, subcarinal, paraesophageal lymphadenopathy seen. No contralateral lymphadenopathy No distance metastases. Clinical stage T1c,, 2.3 x 1.5 cm (>2cm ,<3cm), N2 ,( right mediastinal and paraesophageal lymph node involvement), MX stage IIIa Diabetes mellitus, on oral hypoglycemic History of migraine headaches. discussed with patient regarding her disease status, and treatment options. Considering patient's age and clinical stage and comorbid condition, she is not a candidate for upfront surgery. Other treatment options include neoadjuvant chemotherapy followed by surgical evaluation or neoadjuvant combined chemoradiation followed by surgical evaluation or definitive combined chemoradiation followed by maintenance immunotherapy with durvalumab Based on patient's age, underlying pulmonary status, patient is not a candidate for surgery so definitive combined chemoradiation therapy is under consideration, we will refer her to radiation oncology for evaluation and consider weekly carboplatin/Taxol concurrent with radiation therapy, if tolerated well, may consider full dose carboplatin/Taxol every 21 days ???2 followed by maintenance therapy with durvalumab every 2 weeks ???12 months. Ms Molina began chemo/radiation on 01/15/2020. Overall she has tolerated chemotherapy well however lateron After 2 weekly dose of carboplatin/Taxol she did develop suspected drug allergy rash which is most likely felt to be due to the Taxol/cremefor. She was given dose of Solu-Medrol 60 mg on January 29, 2020 for the rash, which resolved later on and Taxol was discontinued and she was switched to weekly Abraxane/carboplatin concurrent with radiation therapy on February 05, 2020. Ms. Molina had recurrence of the drug allergy rash after her first dose of carboplatin and Abraxane. She was once again given Solu-Medrol and her treatment was delayed until today. Dr. Berger has elected to change her to single agent cisplatin to see how she will tolerate that. Plan: 1. Delay cycle 1 day 1 single agent cisplatin until Wednesday or due to platelet count of 93,000( it was 245 on 12/18/2019. 2. Labs from today were reviewed in detail and discussed with Ms. Molina and a copy was given to her. WBC 2.8, hemoglobin 11.4 platelets 93,000 ANC was 2000. Potassium 3.7 creatinine 0.8 and LFTs are all normal. 3. I have asked for a ultrasound of her gallbladder which apparently is scheduled for tomorrow morning. She was advised in the interim that she can try her nausea medicines or heartburn medications. 4. She may be given daily hydration and supportive care as her needs arise. 5. Will rechek CBC on Wednesday for possible treatmen . 6. Ms Molina was instructed to call us in the inter if questions airse. Signed By: Jose Rosenberg-, [facility] Mary Berger MD <<Signature on File>>
== END 2020-02-16 23:59 | disposition home or self-care (01) ==
LOC: ONCMED 06:52
PROVIDERS: Internal Medicine Hematology & Oncology; Nurse Practitioner; Absent Provider Radiology Radiation Oncology; PCP Family Medicine; Visit Provider Radiology Radiation Oncology
DX: Z51.0 Encounter for antineoplastic radiation therapy (principal); C34.31 Malignant neoplasm of lower lobe, right bronchus or lung; C77.1 Secondary and unspecified malignant neoplasm of intrathoracic lymph nodes; L27.1 Localized skin eruption due to drugs and medicaments taken internally; D70.1 Agranulocytosis secondary to cancer chemotherapy; T45.1X5A Adverse effect of antineoplastic and immunosuppressive drugs, initial encounter; R10.11 Right upper quadrant pain; G89.29 Other chronic pain; M54.9 Dorsalgia, unspecified; N18.3 Chronic kidney disease, stage 3 (moderate); J44.9 Chronic obstructive pulmonary disease, unspecified; E78.5 Hyperlipidemia, unspecified; I12.9 Hypertensive chronic kidney disease with stage 1 through stage 4 chronic kidney disease, or unspecified chronic kidney disease; E11.22 Type 2 diabetes mellitus with diabetic chronic kidney disease; E53.8 Deficiency of other specified B group vitamins; E55.9 Vitamin D deficiency, unspecified; Z79.891 Long term (current) use of opiate analgesic; Z79.84 Long term (current) use of oral hypoglycemic drugs; Z87.891 Personal history of nicotine dependence
CPT/HCPCS: 76705; 77300; 77336; 77338; 77386; 80053; 81000; 83690; 85025; 87077; 87086; 87186; 96360; 96365; 96366; 96367; 96372; 96374; 96375; 96413; 96417; 99214; J0133; J1100; J1200; J1442; J1453; J1940; J2405; J2469; J2930; J3475; J3480; J3490; J7030; J7040; J7050; J9045; J9060; J9264; J9267

== ENCOUNTER 2020-02-29 05:45 | Outpatient (RCR) | payer MEDICARE, OTHER, SELFPAY ==
[2020-02-19 09:11] LABS: Eosinophils % 0.7 %; Hematocrit 36.1 % (37.0-47.0); Hemoglobin 11.5 g/dL (11.5-15.3); Lymphocytes # 0.3 10^3/uL (0.8-4.8); Lymphocytes % 9.2 %; Mean Corpuscular HGB Conc 31.9 g/dL (30.0-36.0); Mean Corpuscular Hemoglobin 29.8 pg (28.0-34.0); Mean Corpuscular Volume 93.5 fL (81-99); Monocytes # 0.4 10^3/uL (0.2-0.9); Monocytes % 14.5 %; Neutrophils # 2.27 10^3/uL (1.8-7.7); Neutrophils % 74.9 %; Nucleated Red Blood Cells % 0 %; Platelet Count 157 10^3/cmm (130-400); Red Blood Count 3.86 10^6/uL (4.1-5.3); Red Cell Distribution Width 14.5 % (12.1-15.1)
[2020-02-19 09:24] LABS: Alanine Aminotransferase 13 U/L (0-33); Albumin Level 4.4 g/dL (3.5-5.2); Alkaline Phosphatase 47 IU/L (35-105); Anion Gap 17.4 (5-19); Aspartate Amino Transferase 14 U/L (0-32); Blood Urea Nitrogen 18 mg/dL (8-23); Carbon Dioxide 26 mmol/L (22-29); Chloride 99 mmol/L (98-107); Globulin 2.5 g/dL (1.3-4.6); Glucose 118 mg/dL (65-115); Osmolality Calculated 286 mOsm/kg (285-295); Potassium 3.4 mmol/L (3.5-5.1); Sodium 139 mmol/L (136-145); Total Bilirubin 0.2 mg/dL (0.15-1.2); Total Protein 6.9 g/dL (6.6-8.7)
--- NOTE | 2020-02-19 15:06 | ONC FU_ITS ---
Dr. Berger follow up note Patient: Amanda Molina Unit #: [id number]: 1945 Dicatated By: Mary Berger M.D.Date of Visit:Feb 19, 2020 Onc Med Follow-up/Prog Note History of Present Illness: Mrs. Molina is a 74-year-old female with history of right lung mass, as per patient, initially, it was observed on her chest CT scan done 07/21/2017 which, at that time, it was so small, and it was decided to observe. And then she lost follow-up until recently when she underwent CT scan of chest abdomen pelvis on 10/10/2019 which showed increase in size of cavitary nodule in the right lower lobe suspicious for neoplasm, enlarged mediastinal and right hilar lymph nodes suspicious for yg metastasis subsequently on 10/25/2019, she underwent CT PET scan which confirmed hypermetabolic cavitary lesion within the subpleural right lower lobe consistent with primary pulmonary neoplasm and hypermetabolic right hilar, right lower paratracheal, and subcarinal, adenopathy. There is a hypermetabolic lymph node abutting the esophagus most consistent with paraesophageal lymph node. No contralateral hypermetabolic left hilar lymph nodes seen. No distant metastasis within the abdomen or pelvis or in the bones Subsequently patient underwent bronchoscopy on 11/13/2019 at [facility] in [place], transbronchial lymph node biopsy was done from the radius stations and pathology report reported on 12/04/2019 showed lymph nodes station 4R, positive for malignancy fragments of squamous cell carcinoma seen Lymph node station 10 R, FNA biopsy, was positive for malignancy very scant fragments of squamous cell carcinoma seen Lung right lower lobe transbronchial biopsy showed benign lung tissue, no tumor seen PDL 1 membranous positivity seen in 95% of tumor cell. Patient further, underwent CT scan of chest on 12/01/2019 which showed interval increase in size of peripheral spiculated cavitary lesion of the posterior basal segment of right lower lobe consistent with progression of the disease. And stable abnormal short axis diameter right hilar and middle mediastinal lymphadenopathy . Mild central lobular and paraseptal emphysematous changes. Mild increase in size of small pericardial effusion. Patient has history of smoking but quit 16 years ago Ms Molina was offered concurrent treatment with chemo radiation. Her chemotherapy treatment plan is weekly Carboplatin/Taxol. She began her first week on January 15, 2020. After 2 weekly doses of carbo/Taxol she developed a rash from above her waist down. She stated it is somewhat itchy but has not been terribly bothersome. It was progressive . She denied any other new medication. She denied any trouble breathing. She has had no fever or chills. She stated , generally the rash had been from about her waistband down her legs front and back. She has had a few spots on her chest and abdomen and on her arms but the significant amount have been on the lower extremities and waist area. Taxol was discontinued and she was switched to weekly Abraxane along with weekly carboplatin on February 05, 2020 and her chemotherapy was also delayed because of progressive leukopenia and thrombocytopenia. The current treatment plan was to add Neupogen in between to maintain chemotherapy schedule but she developed a drug allergy rash once again after the first dose of Carboplatin/Abraxane. Her new treatment plan is weekly single agent Cisplatin along with radiation.Which was started on February 14, 2020 Abdominal sonogram done on February 13, 2024 right upper quadrant pain and diarrhea showed no abnormality except minimal aneurysmal dilatation, aorta measuring 2.6 x 2.5 cm Came for follow-up, denies any specific complaints, no skin rash, tolerated weekly dose of cisplatin concurrent with radiation therapy well. No nausea or vomiting, no fever chills, diarrhea has resolved but has persistent urine incontinence for which severe diaper and she has been followed by Dr. Cabrera. Medications: ALPRAZolam 1 Tablet (of 1 mg) Oral b.i.d., Augmentin 1 Tablet (of 875-125 mg) Oral b.i.d. for 14 weeks, [id number] 1 Capsule (of 50-325-40 mg) Oral q 4 hours PRN, Escitalopram Oxalate 1 Tablet (of 20 mg) Oral daily, Famotidine 1 Tablet (of 40 mg) Oral b.i.d., Furosemide 1 Tablet (of 80 mg) Oral b.i.d., Gabapentin 1 Tablet (of 600 mg) Oral t.i.d., HYDROcodone-Acetaminophen 1 Tablet (of 10-325 mg) Oral q 4 hours PRN, Lactulose 1 (20 g/30mL) Solution Oral b.i.d., Levothyroxine Sodium 1 Tablet (of 137 mcg) Oral daily, Lovastatin 1 Tablet (of 20 mg) Oral daily, metFORMIN HCl 1 Tablet (of 500 mg) Oral b.i.d., traZODone HCl 1 - 3 Tablet (of 50 mg) Oral at bedtime, Vitamin D (Ergocalciferol) 1 CA 125 Units/mL (of 1.25 mg ) Capsule Oral q 7 days Allergies: adhesive, Citalopram Hydrobromide, Cymbalta, and Taxol. Review of Systems: Constitutional - Appetite is diminished and weight is stable. No fever, night sweats, or hot flashes. Energy level is poor, ENMT - Positive for sinus congestion/drainage. No mouth sores. Positive for sore throat and difficulty swallowing, Hematologic/Lymphatic - Positive for easy bruising, Respiratory - Positive for shortness of breath. No cough. No pleuritic pain or hemoptysis, Cardiovascular - No angina pain. No palpitations, Gastrointestinal - No nausea or vomiting. No heartburn or acid reflux. No diarrhea. Positive for constipation. No blood in the stool or black stools, Genitourinary (F) - No dysuria or hematuria. No urinary frequency. No urgency. Positive for incontinence, Musculoskeletal - Positive for joint pain, Neurologic - Positive for headache, dizziness. No numbness or tingling. No other focal neurologic symptoms, Psychiatric - Positive for anxiety and depression. No insomnia. Vital Signs: Performed on Feb 19, 2020 10:46 Height - 65.00 in Weight - 165.2 lbs BSA - 1.82 sq.m BMI - 27.49 Temperature - 97.7 F (LOW) Pulse - 106 /min (HIGH) Respiration - 24 /min BP - 104/66 mm(hg) O2 Sat - 97 % Pain - 0 Performance Status: 1 - No physically strenuous activity, but ambulatory and able to carry out light or sedentary work (e.g. office work, light house work). (ECOG) Physical Examination: ENMT - No mouth sores no thrush, no jaundice, Respiratory - Lungs are clear, Cardiovascular - Regular rate and rhythm of heart, Abdomen - Soft, bowel sounds present, Extremities - No visible edema. Lab/Imaging: Test performed on Feb 19, 2020 08:50 Sodium 139 mmol/L Potassium 3.4 mmol/L Chloride 99 mmol/L CO2 26 mmol/L Anion Gap 17.4 BUN 18 mg/dL Creatinine 0.9 mg/dL Cr Clearance (Est) 65.3600 mL/min Glucose 118 mg/dL Calcium 9.0 mg/dL Protein, Total 6.9 g/dL Albumin 4.4 g/dL Globulin 2.5 g/dL Bilirubin, Total 0.2 mg/dL ALT (SGPT) 13 U/L AST (SGOT) 14 U/L Alkaline Phosphatase 47 IU/L WBC 3.0 10 3/uL RBC 3.86 10 6/uL HGB 11.5 g/dL HCT 36.1 % MCV 93.5 fL MCH 29.8 pg MCHC 31.9 g/dL RDW 14.5 % Platelet Count 157 10 3/cmm MPV 9.0 fL Neutrophils 2.27 10 3/uL Lymphocytes 0.3 10 3/uL Monocytes 0.4 10 3/uL Eosinophils 0.0 10 3/uL Basophils 0.0 10 3/uL Neutrophil % 74.9 % Lymphocyte % 9.2 % Monocyte % 14.5 % Eosinophil % 0.7 % Basophils % 0.0 % NRBC % 0 % Test performed on Jan 15, 2020 09:42 CBC Slide Review Slide Review Perform SLIDE REVIEW AGREES WITH AUTOMATED RESULTS ST Impression: Squamous cell carcinoma per transbronchial biopsy done on 11/13/2019 reported on 12/04/2019 showed right-sided mediastinal lymph node involvement e.g. Station 4R, station 10 R, F and lymph node biopsy confirmed squamous cell carcinoma. As right lower lobe transbronchial biopsy showed benign lung tissue CT PET scan done on 10/25/2019 showed hypermetabolic cavitary lesion within the subpleural right lower lobe consistent with primary lung malignancy Hypermetabolic right hilar, right lower paratracheal, subcarinal, paraesophageal lymphadenopathy seen. No contralateral lymphadenopathy No distance metastases. Clinical stage T1c,, 2.3 x 1.5 cm (>2cm ,<3cm), N2 ,( right mediastinal and paraesophageal lymph node involvement), MX stage IIIa Diabetes mellitus, on oral hypoglycemic History of migraine headaches. discussed with patient regarding her disease status, and treatment options. Considering patient's age and clinical stage and comorbid condition, she is not a candidate for upfront surgery. Other treatment options include neoadjuvant chemotherapy followed by surgical evaluation or neoadjuvant combined chemoradiation followed by surgical evaluation or definitive combined chemoradiation followed by maintenance immunotherapy with durvalumab Based on patient's age, underlying pulmonary status, patient is not a candidate for surgery so definitive combined chemoradiation therapy is under consideration, we will refer her to radiation oncology for evaluation and consider weekly carboplatin/Taxol concurrent with radiation therapy, if tolerated well, may consider full dose carboplatin/Taxol every 21 days ???2 followed by maintenance therapy with durvalumab every 2 weeks ???12 months. Ms Molina began chemo/radiation on 01/15/2020. Overall she has tolerated chemotherapy well however lateron After 2 weekly dose of carboplatin/Taxol she did develop suspected drug allergy rash which is most likely felt to be due to the Taxol/cremefor. She was given dose of Solu-Medrol 60 mg on January 29, 2020 for the rash, which resolved later on and Taxol was discontinued and she was switched to weekly Abraxane/carboplatin concurrent with radiation therapy on February 05, 2020. Ms. Molina had recurrence of the drug allergy rash after her first dose of carboplatin and Abraxane. She was once again given Solu-Medrol and her treatment was delayed until today. has elected to change her to single agent cisplatin , Which was started on February 14, 2020 Plan: Discussed with patient regarding her labs white blood count 3 hemoglobin 11.5 hematocrit 36.1 platelets 157,000 CMP within normal limit except potassium 3.4 Clinically, patient is doing reasonably well, tolerating weekly cisplatin concurrent with radiation therapy well but with expected side effects e.g. progressive leukopenia. We will repeat her CBC and BMP on Wednesday if shows further improvement and resolution, will consider next weekly dose of cisplatin concurrent with radiation therapy, patient is scheduled to complete her combined chemoradiation therapy on March 04, 2020, patient return to clinic on February 27, 2017 with CBC CMP and if looks reasonable, may consider concluding her concurrent chemotherapy with weekly cisplatin. 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 Patient was told to discontinue hydrocodone and rely on Magic mouthwash without Benadryl, already prescribed by radiation oncology. Signed By: Mary Berger M.D. <<Signature on File>>
[2020-02-20] MEDS: sodium chloride 0.9% 1,000 ML 999 ML IV (11:40)
--- NOTE | 2020-02-20 17:15 | ONCRAD TMN_ITS ---
Radiation Oncology Weekly Treatment Management Patient: Amanda Molina MR#: [id number] : 1945> Age: 74> Sex: Female Dictated by: Dr. 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 PDL 1 membranous positivity seen in 95% of tumor cell. Plan: Definitive concurrent chemoradiation therapy. Initially she was given carbotaxol, followed by carboplatin/Abraxane, followed by single agent cisplatin due to drug rashes associated with Taxol and Abraxane. Radiotherapy to date: Course: RT Lung 2019, Treatment Site: RT [id number], Ref. ID: [id number], Energy: 6X, Dose/Fx (cGy): 180, #Fx: , Dose Correction (cGy): 0, Total Dose (cGy): 4,140, Start Date: 01/15/2020, End Date: 02/15/2020, Elapsed Days: 31 RT Lung 2019, Treatment Site: Boost 10FX, Ref. ID: [id number], Energy: 6X, Dose/Fx (cGy): 200, #Fx: 3 / 10, Dose Correction (cGy): 0, Total Dose (cGy): 600, Start Date: 02/16/2020, Elapsed Days: 4 Reason for visit: The patient is being seen today as part of their regularly scheduled weekly on treatment visits to assess for acute toxicities for radiotherapy. Interim History: The patient reports that her appetite is poor, and she feels weak. She is scheduled to get hydration today. She also complains of painful swallowing, and mouth sores. Current Medications: Aloxi, aLPRAZolam, augmentin, [id number], cISplatin, dexamethasone, dexamethasone Sodium Phosphate, diphenhydrAMINE HCl, emend, eMLA, escitalopram Oxalate, famciclovir, famotidine, furosemide, furosemide, gabapentin, hYDROcodone-Acetaminophen, lactulose, levothyroxine Sodium, lidocaine Viscous HCl, lORazepam, lovastatin, magnesium Sulfate, metFORMIN HCl, mouthwash Compounding Base, neupogen, potassium Chloride, prochlorperazine Maleate, traZODone HCl, vitamin D (Ergocalciferol). Allergies: Cymbalta, Citalopram Hydrobromide, adhesive and Taxol. Current Complaints/Review of Systems: Constitutional - Complains of a poor appetite. Complains of severe fatigue. Denies fever and night sweats. ENMT - Complains of dysphagia, stomatitis and altered taste. Cardiovascular - Complains of chest pain occasionally that comes and goes. Denies edema. Respiratory - Complains of a mild cough which is non-productive. Complains of dyspnea associated with normal activity. Denies hemoptysis and wheezing. Vital Signs: Performed on 02/20/2020 10:31 AM BMI - 28.057 kg/m2 (high), Height - 65.00 in, Weight - 168.6 lbs, Temperature - 98.4 f, Pulse - 110, Respiration - 22, O2 Sat - 96 % and BP - 103/ 74 mm(hg). Physical Exam: Appears stable, no skin erythema or desquamation. Lungs are clear to auscultation bilaterally. Performance Status: 3 - Capable of only limited self-care, confined to bed or chair more than 50% of waking hours. (ECOG) Lab: None pending in Radiation Oncology. Test performed on 02/19/2020 8:50 AM WBC - 3.0 10 3/ul (low), RBC - 3.86 10 6/ul (low), HCT - 36.1 % (low), Lymphocytes - 0.3 10 3/ul (low), Potassium - 3.4 mmol/l (low), Cr Clearance (Est) - 65.3600 ml/min (low) and Glucose - 118 mg/dl (high). Imaging: Radiation therapy imaging related to accurate target localization (i.e. KV, MV and CBCT) was reviewed. Appropriate changes, if any, were made to ensure treatment accuracy. Plan: The patient is tolerating therapy reasonably well. Radiotherapy will continue as planned. CPT: 77432 Signed by: Dr. Matthew Sabillon>02/20/2020 5:14:18 PM <<Signature on File>>
[2020-02-21 09:06] LABS: Basophils % 0.4 %; Eosinophils % 0.4 %; Hematocrit 33.3 % (37.0-47.0); Hemoglobin 10.6 g/dL (11.5-15.3); Lymphocytes # 0.2 10^3/uL (0.8-4.8); Lymphocytes % 8.4 %; Mean Corpuscular HGB Conc 31.8 g/dL (30.0-36.0); Mean Corpuscular Hemoglobin 30.5 pg (28.0-34.0); Mean Corpuscular Volume 95.7 fL (81-99); Mean Platelet Volume 8.9 fL (7.4-10.4); Monocytes # 0.4 10^3/uL (0.2-0.9); Monocytes % 17.2 %; Neutrophils # 1.72 10^3/uL (1.8-7.7); Neutrophils % 71.9 %; Nucleated Red Blood Cells % 0 %; Platelet Count 121 10^3/cmm (130-400); Red Blood Count 3.48 10^6/uL (4.1-5.3); Red Cell Distribution Width 14.6 % (12.1-15.1); White Blood Count 2.4 10^3/uL (4.0-10.0)
[2020-02-21 09:25] LABS: Anion Gap 14.8 (5-19); Blood Urea Nitrogen 12 mg/dL (8-23); Calcium 8.6 mg/dL (8.5-10.5); Carbon Dioxide 28 mmol/L (22-29); Chloride 100 mmol/L (98-107); Glucose 139 mg/dL (65-115); Osmolality Calculated 286 mOsm/kg (285-295); Potassium 3.8 mmol/L (3.5-5.1); Sodium 139 mmol/L (136-145)
[2020-02-22] MEDS: sodium chloride 0.9% 1,000 ML 500 ML IV (08:45)
--- NOTE | 2020-02-27 10:49 | ONCRAD TMN_ITS ---
Radiation Oncology Weekly Treatment Management Patient: Jesse Patel MR#: [id number] : 1945 Age: 74 Sex: Female Dictated by: Dr. 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 PDL 1 +95%. Treatment Plan: Definitive concurrent chemoradiation therapy. Initially she was given carbotaxol, followed by carboplatin/Abraxane, followed by single agent cisplatin due to drug rashes associated with Taxol and Abraxane. Radiotherapy to date: Course: RT Lung 2019, Treatment Site: RT [id number], Ref. ID: [id number], Energy: 6X, Dose/Fx (cGy): 180, #Fx: , Dose Correction (cGy): 0, Total Dose (cGy): 4,140, Start Date: 01/15/2020, End Date: 02/15/2020, Elapsed Days: 31 Course: RT Lung 2019, Treatment Site: Boost 10FX, Ref. ID: [id number], Energy: 6X, Dose/Fx (cGy): 200, #Fx: , Dose Correction (cGy): 0, Total Dose (cGy): 1,600, Start Date: 02/16/2020, Elapsed Days: 11 Reason for visit: The patient is being seen today as part of their regularly scheduled weekly on treatment visits to assess for acute toxicities from radiotherapy. Interim History: The patient reports excessive fatigue, and swallowing difficulties, but she declined an offer for medication optimization. Current Medications: Aloxi, aLPRAZolam, augmentin, [id number], cISplatin, dexamethasone, dexamethasone Sodium Phosphate, diphenhydrAMINE HCl, emend, eMLA, escitalopram Oxalate, famciclovir, famotidine, furosemide, furosemide, gabapentin, hYDROcodone-Acetaminophen, lactulose, levothyroxine Sodium, lidocaine Viscous HCl, lORazepam, lovastatin, magnesium Sulfate, metFORMIN HCl, mouthwash Compounding Base, neupogen, potassium Chloride, prochlorperazine Maleate, traZODone HCl, vitamin D (Ergocalciferol). Allergies: Cymbalta, Citalopram Hydrobromide, adhesive and Taxol. Current Complaints/Review of Systems: Vital Signs: Performed on 02/27/2020 10:39 AM BMI - 27.358 kg/m2 (high), Height - 65.00 in, Weight - 164.4 lbs, Temperature - 98.1 f, Pulse - 106, Respiration - 18, O2 Sat - 96 %, Pain - 6, Fatigue - 7 and BP - 114/ 78 mm(hg). Physical Exam: Appears stable, no skin erythema or desquamation. Performance Status: 3 - Capable of only limited self-care, confined to bed or chair more than 50% of waking hours. (ECOG) Lab: None pending in Radiation Oncology. Test performed on 02/21/2020 8:50 AM WBC - 2.4 10 3/ul (low), RBC - 3.48 10 6/ul (low), HGB - 10.6 g/dl (low), HCT - 33.3 % (low), Platelet Count - 121 10 3/cmm (low), Neutrophils - 1.72 10 3/ul (low), Lymphocytes - 0.2 10 3/ul (low) and Glucose - 139 mg/dl (high). Imaging: Radiation therapy imaging related to accurate target localization (i.e. KV, MV and CBCT) was reviewed. Appropriate changes, if any, were made to ensure treatment accuracy. Plan: The patient is tolerating therapy reasonably well. Radiotherapy will continue as planned. CPT: 55331 Signed by: Dr. Matthew Sabillon 02/27/2020 10:48:35 AM
[2020-02-27 11:45] LABS: Basophils % 0.3 %; Eosinophils % 0.3 %; Hemoglobin 10.2 g/dL (11.5-15.3); Lymphocytes # 0.4 10^3/uL (0.8-4.8); Mean Corpuscular HGB Conc 32.9 g/dL (30.0-36.0); Mean Corpuscular Hemoglobin 31.3 pg (28.0-34.0); Mean Corpuscular Volume 95.1 fL (81-99); Mean Platelet Volume 9.6 fL (7.4-10.4); Monocytes # 0.6 10^3/uL (0.2-0.9); Monocytes % 17.2 %; Neutrophils # 2.27 10^3/uL (1.8-7.7); Neutrophils % 69.6 %; Nucleated Red Blood Cells % 0 %; Platelet Count 98 10^3/cmm (130-400); Red Blood Count 3.26 10^6/uL (4.1-5.3); Red Cell Distribution Width 15.9 % (12.1-15.1); White Blood Count 3.3 10^3/uL (4.0-10.0)
[2020-02-27 11:48] LABS: Alanine Aminotransferase 12 U/L (0-33); Albumin Level 3.9 g/dL (3.5-5.2); Alkaline Phosphatase 49 IU/L (35-105); Anion Gap 13.6 (5-19); Aspartate Amino Transferase 17 U/L (0-32); Blood Urea Nitrogen 10 mg/dL (8-23); Calcium 8.4 mg/dL (8.5-10.5); Carbon Dioxide 29 mmol/L (22-29); Chloride 98 mmol/L (98-107); Globulin 3.1 g/dL (1.3-4.6); Glucose 108 mg/dL (65-115); Osmolality Calculated 281 mOsm/kg (285-295); Potassium 3.6 mmol/L (3.5-5.1); Sodium 137 mmol/L (136-145); Total Bilirubin 0.4 mg/dL (0.15-1.2)
[2020-02-28] MEDS: sodium chloride 0.9% 1,000 ML 75 ML IV (09:15)
[2020-02-29] MEDS: sodium chloride 0.9% 1,000 ML 999 ML IV (10:27)
[2020-02-29] MEDS: acetaminophen 325 mg Tablet 650 MG PO (10:53)
--- NOTE | 2020-02-29 17:11 | ONC FU_ITS ---
Dr. Berger follow up note Patient: Amanda Molina Unit #: [id number]: 1945 Dicatated By: Mary Berger M.D.Date of Visit:Feb 28, 2020 Onc Med Follow-up/Prog Note History of Present Illness: Mrs. Molina is a 74-year-old female with history of right lung mass, as per patient, initially, it was observed on her chest CT scan done 07/21/2017 which, at that time, it was so small, and it was decided to observe. And then she lost follow-up until recently when she underwent CT scan of chest abdomen pelvis on 10/10/2019 which showed increase in size of cavitary nodule in the right lower lobe suspicious for neoplasm, enlarged mediastinal and right hilar lymph nodes suspicious for yg metastasis subsequently on 10/25/2019, she underwent CT PET scan which confirmed hypermetabolic cavitary lesion within the subpleural right lower lobe consistent with primary pulmonary neoplasm and hypermetabolic right hilar, right lower paratracheal, and subcarinal, adenopathy. There is a hypermetabolic lymph node abutting the esophagus most consistent with paraesophageal lymph node. No contralateral hypermetabolic left hilar lymph nodes seen. No distant metastasis within the abdomen or pelvis or in the bones Subsequently patient underwent bronchoscopy on 11/13/2019 at [facility] in [place], transbronchial lymph node biopsy was done from the radius stations and pathology report reported on 12/04/2019 showed lymph nodes station 4R, positive for malignancy fragments of squamous cell carcinoma seen Lymph node station 10 R, FNA biopsy, was positive for malignancy very scant fragments of squamous cell carcinoma seen Lung right lower lobe transbronchial biopsy showed benign lung tissue, no tumor seen PDL 1 membranous positivity seen in 95% of tumor cell. Patient further, underwent CT scan of chest on 12/01/2019 which showed interval increase in size of peripheral spiculated cavitary lesion of the posterior basal segment of right lower lobe consistent with progression of the disease. And stable abnormal short axis diameter right hilar and middle mediastinal lymphadenopathy . Mild central lobular and paraseptal emphysematous changes. Mild increase in size of small pericardial effusion. Patient has history of smoking but quit 16 years ago Ms Molina was offered concurrent treatment with chemo radiation. Her chemotherapy treatment plan is weekly Carboplatin/Taxol. She began her first week on January 15, 2020. After 2 weekly doses of carbo/Taxol she developed a rash from above her waist down. She stated it is somewhat itchy but has not been terribly bothersome. It was progressive . She denied any other new medication. She denied any trouble breathing. She has had no fever or chills. She stated , generally the rash had been from about her waistband down her legs front and back. She has had a few spots on her chest and abdomen and on her arms but the significant amount have been on the lower extremities and waist area. Taxol was discontinued and she was switched to weekly Abraxane along with weekly carboplatin on February 05, 2020 and her chemotherapy was also delayed because of progressive leukopenia and thrombocytopenia. The current treatment plan was to add Neupogen in between to maintain chemotherapy schedule but she developed a drug allergy rash once again after the first dose of Carboplatin/Abraxane. Her new treatment plan is weekly single agent Cisplatin along with radiation.Which was started on February 14, 2020, But after single dose of cisplatin she developed progressive pancytopenia, follow-up labs done on February 21, 2020 showed white blood count 2.4 hemoglobin 10.6 and platelets 121,000 and on February 27, 2020, her platelet count dropped further to 98,000 with white blood count 3.3 and hemoglobin 10.2 because of progressive pancytopenia no further chemotherapy was given and was concluded on February 14, 2020 and patient will complete her recommended radiation therapy on February 29, 2020 Abdominal sonogram done on February 13, 2024 right upper quadrant pain and diarrhea showed no abnormality except minimal aneurysmal dilatation, aorta measuring 2.6 x 2.5 cm Came for follow-up, complaining of generalized weakness and fatigue, poor oral intake mild mouth sores but no thrush, dysphagia is under control with current Magic mouthwash. No fever chills no nausea or vomiting. No diarrhea or constipation. Tolerating combined chemoradiation reasonably well. Medications: ALPRAZolam 1 Tablet (of 1 mg) Oral b.i.d., Augmentin 1 Tablet (of 875-125 mg) Oral b.i.d. for 4 weeks, Atowkqyfuk-AFLR-Ywdxgtjz 1 Capsule (of 50-325-40 mg) Oral q 4 hours PRN, Escitalopram Oxalate 1 Tablet (of 20 mg) Oral daily, Famotidine 1 Tablet (of 40 mg) Oral b.i.d., Furosemide 1 Tablet (of 80 mg) Oral b.i.d., Gabapentin 1 Tablet (of 600 mg) Oral t.i.d., HYDROcodone-Acetaminophen 1 Tablet (of 10-325 mg) Oral q 4 hours PRN, Lactulose 1 (20 g/30mL) Solution Oral b.i.d., Levothyroxine Sodium 1 Tablet (of 137 mcg) Oral daily, Lovastatin 1 Tablet (of 20 mg) Oral daily, metFORMIN HCl 1 Tablet (of 500 mg) Oral b.i.d., traZODone HCl 1 - 3 Tablet (of 50 mg) Oral at bedtime, Vitamin D (Ergocalciferol) 1 CA 125 Units/mL (of 1.25 mg ) Capsule Oral q 7 days Allergies: adhesive, Citalopram Hydrobromide, Cymbalta, and Taxol. Review of Systems: Review of Systems is not available for this patient. Vital Signs: Performed on Feb 28, 2020 08:38 Height - 65.00 in Weight - 166.6 lbs (HIGH) BSA - 1.83 sq.m BMI - 27.72 Temperature - 98.4 F Pulse - 105 /min (HIGH) Respiration - 24 /min BP - 109/72 mm(hg) O2 Sat - 96 % Pain - 0 Performance Status: 1 - No physically strenuous activity, but ambulatory and able to carry out light or sedentary work (e.g. office work, light house work). (ECOG) Physical Examination: ENMT - Mild grade 1 mucositis but no thrush, no jaundice, Respiratory - Lungs are clear, Cardiovascular - Regular rate and rhythm of heart, Abdomen - Soft, bowel sounds present, Extremities - No visible edema. Lab/Imaging: Test performed on Feb 21, 2020 08:50 Sodium 139 mmol/L Potassium 3.8 mmol/L Chloride 100 mmol/L CO2 28 mmol/L Anion Gap 14.8 Glucose 139 mg/dL BUN 12 mg/dL Creatinine 0.8 mg/dL Cr Clearance (Est) 73.5300 mL/min Calcium 8.6 mg/dL WBC 2.4 10 3/uL RBC 3.48 10 6/uL HGB 10.6 g/dL HCT 33.3 % MCV 95.7 fL MCH 30.5 pg MCHC 31.8 g/dL RDW 14.6 % Platelet Count 121 10 3/cmm MPV 8.9 fL Neutrophils 1.72 10 3/uL Lymphocytes 0.2 10 3/uL Monocytes 0.4 10 3/uL Eosinophils 0.0 10 3/uL Basophils 0.0 10 3/uL Neutrophil % 71.9 % Lymphocyte % 8.4 % Monocyte % 17.2 % Eosinophil % 0.4 % Basophils % 0.4 % NRBC % 0 % Test performed on Feb 19, 2020 08:50 Protein, Total 6.9 g/dL Albumin 4.4 g/dL Globulin 2.5 g/dL Bilirubin, Total 0.2 mg/dL ALT (SGPT) 13 U/L AST (SGOT) 14 U/L Alkaline Phosphatase 47 IU/L Test performed on Jan 15, 2020 09:42 CBC Slide Review Slide Review Perform SLIDE REVIEW AGREES WITH AUTOMATED RESULTS ST Impression: Squamous cell carcinoma per transbronchial biopsy done on 11/13/2019 reported on 12/04/2019 showed right-sided mediastinal lymph node involvement e.g. Station 4R, station 10 R, F and lymph node biopsy confirmed squamous cell carcinoma. As right lower lobe transbronchial biopsy showed benign lung tissue CT PET scan done on 10/25/2019 showed hypermetabolic cavitary lesion within the subpleural right lower lobe consistent with primary lung malignancy Hypermetabolic right hilar, right lower paratracheal, subcarinal, paraesophageal lymphadenopathy seen. No contralateral lymphadenopathy No distance metastases. Clinical stage T1c,, 2.3 x 1.5 cm (>2cm ,<3cm), N2 ,( right mediastinal and paraesophageal lymph node involvement), MX stage IIIa Diabetes mellitus, on oral hypoglycemic History of migraine headaches. discussed with patient regarding her disease status, and treatment options. Considering patient's age and clinical stage and comorbid condition, she is not a candidate for upfront surgery. Other treatment options include neoadjuvant chemotherapy followed by surgical evaluation or neoadjuvant combined chemoradiation followed by surgical evaluation or definitive combined chemoradiation followed by maintenance immunotherapy with durvalumab Based on patient's age, underlying pulmonary status, patient is not a candidate for surgery so definitive combined chemoradiation therapy is under consideration, we will refer her to radiation oncology for evaluation and consider weekly carboplatin/Taxol concurrent with radiation therapy, if tolerated well, may consider full dose carboplatin/Taxol every 21 days ???2 followed by maintenance therapy with durvalumab every 2 weeks ???12 months. Ms Molina began chemo/radiation on 01/15/2020. Overall she has tolerated chemotherapy well however lateron After 2 weekly dose of carboplatin/Taxol she did develop suspected drug allergy rash which is most likely felt to be due to the Taxol/cremefor. She was given dose of Solu-Medrol 60 mg on January 29, 2020 for the rash, which resolved later on and Taxol was discontinued and she was switched to weekly Abraxane/carboplatin concurrent with radiation therapy on February 05, 2020. Ms. Molina had recurrence of the drug allergy rash after her first dose of carboplatin and Abraxane. She was once again given Solu-Medrol and her treatment was delayed until today. has elected to change her to single agent cisplatin , Which was started on February 14, 2020 Plan: Discussed with patient regarding her labs white blood count 3.3 hemoglobin 10.2 hematocrit 31 platelets 98,000 CMP within normal limits Clinically, patient is in mild to moderate distress due to indigestion poor oral intake, dehydration and her follow-up CBC shows a progressive thrombocytopenia and persistent leukopenia and anemia, patient is due for her weekly concurrent chemotherapy with cisplatin but because of above-mentioned symptoms and progressive bone marrow suppression, we will discontinue chemotherapy as last dose of weekly cisplatin was given on February 14, 2020 since then patient has progressive mild/moderate thrombocytopenia and leukopenia. We will consider hydration and patient was encouraged to maintain nutrition and And maintain oral hygiene, will consider hydration on as-needed basis while she will continue radiation therapy which she will conclude in the morning and then she will return to clinic in 2 weeks with CBC CMP. Signed By: Mary Berger M.D. <<Signature on File>>
== END 2020-03-18 23:59 | disposition home or self-care (01) ==
LOC: ONCMED 05:45
PROVIDERS: Internal Medicine Hematology & Oncology; Absent Provider Radiology Radiation Oncology; PCP Family Medicine; Visit Provider Radiology Radiation Oncology
DX: Z51.0 Encounter for antineoplastic radiation therapy (principal); C34.31 Malignant neoplasm of lower lobe, right bronchus or lung; E11.9 Type 2 diabetes mellitus without complications; Z79.4 Long term (current) use of insulin; G43.909 Migraine, unspecified, not intractable, without status migrainosus; D69.6 Thrombocytopenia, unspecified; D72.819 Decreased white blood cell count, unspecified; Z92.21 Personal history of antineoplastic chemotherapy
CPT/HCPCS: 36591; 77336; 77386; 80048; 80053; 85025; 96360; 96365; 96366; 99214; J3475; J3480; J7030

== ENCOUNTER → 2020-03-13 10:45 | Outpatient (BNVA) | payer MEDICARE, OTHER, SELFPAY | PROVIDERS: PCP Family Medicine; Visit Provider Urology | DX: N30.20 Other chronic cystitis without hematuria (principal) | CPT/HCPCS: 81001 ==

== ENCOUNTER 2020-04-05 10:07 | Outpatient (CLI) | payer MEDICARE, OTHER, SELFPAY ==
--- NOTE | 2020-04-05 | CT_ITS ---
WS: [id number] CT CHEST TECHNIQUE: Contrast enhanced CT of the chest with coronal and sagittal reformatted images. CLINICAL INFORMATION: LUNG CANCER COMPARISON: PET CT October 25, 2019. No report available. DLP: 714.[address] scans at [facility] use at least one of these dose optimization techniques: automat ed exposure control; mA and/or kV adjustment per patient size (includes targeted exams where dose is matched to clinical indication); or iterative reconstruction. FINDINGS: Moderate chronic emphysematous changes. Patchy ground glass infiltrates in the right upper lobe about the right hilum. Additional hazy ground glass infiltrates in the right upper lobe laterally and left upper lobe anteriorly. Left basilar atelectasis. Small right pleural effusion. Subsegmental atelecta sis in the lung bases. Previously described FDG avid opacity in the right lower lobe is no longer visualized. Previously felicia cribed FDG avid subcarinal, right peribronchial, and right hilar lymph nodes appear improved. No new or progressive lymphadenopathy today. Small right hilar lymph node measures 9 mm. No axillary lymphadenopathy. Normal caliber thoracic aorta. Coronary calcification. Tiny pericardial effusion. Adrenal glands are normal. Fatty atrophy of the pancreas. Diffuse fatty infiltration liver. Moderate thoracic kyphosis. CT/CT chest w con* [id number] IMPRESSION: 1. Patchy groundglass infiltrate in the right hilum and right upper lobe media lly may be due to radiation fibrosis. 2. Additional patchy hazy groundglass infiltrates in both upper lobes mainly s ubpleural in location.Correlation for pneumonitis. 3. Small right pleural effusion with subsegmental atelectasis in lung bases. 4. FDG avid right lower lobe pulmonary nodule no longer visualized. 5. Improved anterior mediastinal, peribronchial, and subcarinal lymphadenopath y. No progressed lymphadenopathy. Residual right hilar lymph node measuring 9 m m. 6. Small pericardial effusion.
[2020-04-05] MEDS: iodixanol 320 mg/mL 100mL Btl IV (11:18)
== END 2020-04-05 10:08 | disposition home or self-care (01) ==
LOC: RADWPI 10:15
PROVIDERS: PCP Family Medicine; Visit Provider Radiology Radiation Oncology
DX: C34.31 Malignant neoplasm of lower lobe, right bronchus or lung (principal); R91.8 Other nonspecific abnormal finding of lung field; J90 Pleural effusion, not elsewhere classified; J98.11 Atelectasis; I31.3 Pericardial effusion (noninflammatory)
CPT/HCPCS: 71260; Q9967

== ENCOUNTER 2020-04-13 13:28 | Inpatient (IN) | payer MEDICARE, OTHER, SELFPAY ==
[2020-04-13] VITALS (9 sets, daily range): BP systolic 131–172; BP diastolic 82–104; PULSE 84–103; RESP 11–20; TEMP 36.8–37.1; O2SAT 93–99; BMI 25.7
--- NOTE | 2020-04-13 13:42 | XRR_ITS ---
PROCEDURE INFORMATION: Exam: XR Chest, 1 View Exam date and time: 04/13/2020 1:43 PM Age: 74 years old Clinical indication: Cough and dyspnea; Additional info: Dyspnea/cough TECHNIQUE: Imaging protocol: XR of the chest Views: 1 view. COMPARISON: CT chest w con* [id number] 04/05/2020 11:03 AM FINDINGS: Tubes, catheters and devices: There is a right IJ catheter whose tip is in the superior vena cava. Lungs: Unremarkable. No consolidation. Pleural space: Unremarkable. No pleural effusion. No pneumothorax. Heart/Mediastinum: Unremarkable. No cardiomegaly. Bones/joints: Unremarkable. XR/XR chest 1V portable [id number] IMPRESSION: There are no acute concerning abnormalities.
--- NOTE | 2020-04-13 13:42 | ECG_ITS ---
[facility] Test Date: 2020-04-13 Pat Name: Amanda Molina Department: Room: Gender: Female Holter Technician: : 1945 Requested By: Rambo Basilio Order Number: [id number] Eyal MD: Alexis Sullivan M.D. Measurements Intervals [place] Rate: 85 P: 56 NV: 223 QRS: 13 QRSD: 86 T: 57 QT: 376 QTc: 450 Interpretive Statements SINUS RHYTHM WITH FIRST DEGREE AV BLOCK LOW QRS VOLTAGE [QRS DEFLECTION < 0.5/1.0 mV IN LIMB/CHEST LEADS] No previous ECG available for comparison Electronically Signed On 04-13-2020 17:02:20 CDT by Alexis Sullivan M.D. [id number]
--- NOTE | 2020-04-13 13:49 | ED_ITS ---
HPI - Nausea/Vomiting/Diarrhea General: Chief complaint: Nausea/Vomiting/Diarrhea Stated complaint: N/V x 4 days Time Seen by Provider: 04/13/20 13:29 History of Present Illness: HPI Narrative: 74 yo female presents with persistint nausea and vomitting x 5 days, she has a history of lung cancer and is seen by Dr. Berger. Denies hematochezia, melena, heatemesis ro coffee ground emesis. She not had any increase in breathing (she does have some baseline shortness of breath due to her lung cancer) Difficulty she denies any fever. She has not been around anyone that she knows of that is COVID. Her last treatment for her lung cancer was 1 week ago. She had radiation at that time. She had stopped chemo due to side effects. MD elicited complaint: nausea and vomiting Pertinent past history: other (Lung cancer) Onset (ago): day(s) (5 days) Description of vomiting: bilious Associated nausea: Yes Associated abdominal pain: No Location of pain: None Quality: cramping Exacerbating factors: movement Relieving factors: rest Context: other (Known lung cancer) Associated symtoms: Reports cough, decreased urine output, dysuria, fatigue, anorexia, malaise, myalgias, nausea, short of breath and weakness; Denies altered mental status, anxiety, bloating, change in vision, chest pain, diaphoresis, dizziness, epistaxis, fevers/chills, headache(s), numbness, palpitations, rash, syncope, tenesmus or tinnitus Review of Systems Const: Reports: fatigue and malaise; Denies: diaphoresis Eyes: Denies: change in vision ENMT: Denies: tinnitus or epistaxis Card: Denies: chest pain, palpitations or syncope Resp: Denies: dyspnea, productive cough or non-productive cough GI: Reports: nausea; Denies: bloating : Reports: dysuria Skin/Breast: Denies: rash or pruritus Neuro: Denies: headache(s) or dizziness Psych: Denies: anxiety PFSH ED PFSH: Medical History Chronic cystitis Diabetes Gross hematuria H/O fracture of femur has an artifical femur left leg Malignant neoplasm of lung Urgency incontinence Surgical History H/O oral surgery H/O pneumonectomy H/O: hysterectomy S/P cataract surgery Family History Mother , [id number] No problems noted. Father , 69-lung cancer Cancer Denies family history of Anesthesia complication Bleeding disorder Social History Smoking and tobacco status: never smoked Alcohol intake: never Adopted: No Caregiver/support person: No Lives independently: No Household members: family Marital status: / Current occupational status: retired Physical Exam Const: COMMON NORMALS: no acute distress EXAM LIMITATIONS: no altered mental status GENERAL APPEARANCE: cooperative and comfortable ORIENTATION/CONSCIOUSNESS: Yes awake, Yes oriented to person, Yes oriented to place and Yes oriented to time HENMT: COMMON NORMALS: normocephalic, atraumatic, hearing grossly normal bilaterally, external ears normal, EAC's normal, TM's normal bilaterally, Normal nasal mucous membranes and turbinates present, moist oral mucous membranes and oropharynx normal HEAD & SCALP: normocephalic and atraumatic NOSE: Normal nasal mucous membranes and turbinates present EXTERNAL EAR: Yes external ears normal EXTERNAL AUDITORY CANAL: EAC's normal TYMPANIC MEMBRANE: TM's normal bilaterally Eye: COMMON NORMALS: Equal, round and reactive pupils present, EOMs intact bilaterally, conjunctivae normal and no scleral icterus CONJUNCTIVA: Yes conjunctivae normal PUPIL: Yes Equal, round and reactive pupils present Neck/C-Spine: COMMON NORMALS: full ROM, no lymphadenopathy, supple and no JVD Lymph: LYMPHATIC: no lymphadenopathy noted and no lymphedema noted Resp: COMMON NORMALS: normal respiratory effort, No retractions, No use of accessory muscles and clear to auscultation bilaterally AUSCULTATION: clear to auscultation bilaterally Cardio: COMMON NORMALS: no JVD, regular rate, regular rhythm and No murmurs present (Cardio) RATE: regular rate RHYTHM: regular rhythm GI: COMMON NORMALS: Soft to palpation and No hepatosplenomegaly present AUSCULTATION: Yes normoactive bowel sounds PALPATION: Yes Soft to palpation, No Tenderness to palpation present (GI), No Guarding due to palpation present (GI) and Yes No hepatosplenomegaly present Extremity: COMMON NORMALS: normal to inspection, capillary refill normal, no clubbing, cyanosis or edema, no calf tenderness and no pedal edema Neuro: SENSORIUM/ORIENTATION: Yes oriented to person, Yes oriented to place and Yes oriented to time Skin: COMMON NORMALS: no rashes or lesions noted GENERAL SKIN EXAM: no rashes or lesions noted Course Vital Signs: Vital signs: Vital Signs Temperature 100.2 F H 04/14/20 15:57 Pulse Rate 113 H 04/14/20 15:57 Respiratory Rate 20 H 04/14/20 15:57 Blood Pressure 133/73 04/14/20 15:57 Pulse Oximetry 94 04/14/20 15:57 MDM - Nausea/Vomiting/Diarrhea MDM Narrative: Medical decision making narrative: Reviewed findings with the patient she is not able to control her nausea vomiting despite multiple different medications still persistent we will go ahead and admit her for IV fluids got rest and antiemetics. Lab Data: Labs: Lab Results 04/13/20 04/13/20 04/13/20 Range/Units 13:45 13:45 13:45 WBC 6.6 (4.0-10.0) 10^3/ uL RBC 3.47 L (4.1-5.3) 10^6/u L Hgb 10.5 L (11.5-15.3) g/dL Hct 33.0 L (37.0-47.0) % MCV 95.1 (81-99) fL MCH 30.3 (28.0-34.0) pg MCHC 31.8 (30.0-36.0) g/dL RDW 15.9 H (12.1-15.1) % Plt Count 279 (130-400) 10^3/c mm MPV 9.3 (7.4-10.4) fL Neut % (Auto) 78.3 % Lymph % (Auto) 9.0 % Carlton % (Auto) 9.0 % Eos % (Auto) 2.6 % Baso % (Auto) 0.3 % Neut # (Auto) 5.13 (1.8-7.7) 10^3/u L Lymph # (Auto) 0.6 L (0.8-4.8) 10^3/u L Carlton # (Auto) 0.6 (0.2-0.9) 10^3/u L Eos # (Auto) 0.2 (0.0-0.8) 10^3/u L Baso # (Auto) 0.0 (0.0-0.1) 10^3/u L Nucleated RBC % (a uto) 0 % Nucleated RBCs # 0.0 /100WBC Sodium 133 L (136-145) mmol/L Potassium 3.7 (3.5-5.1) mmol/L Chloride 97 L (98-107) mmol/L Carbon Dioxide 18 L (22-29) mmol/L Anion Gap 21.7 H (5-19) BUN 7 L (8-23) mg/dL Creatinine 0.7 (0.5-0.9) mg/dL GFR Calculation Not Reportable Glucose 103 (65-115) mg/dL Calculated Osmolal ity 274 L (285-295) mOsm/k g Calcium 9.1 (8.5-10.5) mg/dL Total Bilirubin 0.2 (0.15-1.2) mg/dL AST 12 (0-32) U/L ALT < 5 (0-33) U/L Alkaline Phosphata se 55 (35-105) IU/L Creatine Kinase 13 L (26-192) U/L Total Protein 7.0 (6.6-8.7) g/dL Albumin 3.7 (3.5-5.2) g/dL Globulin 3.3 (1.3-4.6) g/dL TSH 4.48 H (0.27-4.20) uIU/ mL Urine Color (Yellow) Urine Appearance (CLEAR) Urine pH (5-7) Ur Specific Gravit y (1.005-1.030) Urine Protein (Negative) Urine Glucose (UA) (Normal) Urine Ketones (Negative) Urine Blood (Negative) Urine Nitrate (Negative) Urine Bilirubin (Negative) Urine Urobilinogen (Negative) mg/dL Ur Leukocyte Ladan ase (Negative) 04/13/20 Range/Units 15:56 WBC (4.0-10.0) 10^3/ uL RBC (4.1-5.3) 10^6/u L Hgb (11.5-15.3) g/dL Hct (37.0-47.0) % MCV (81-99) fL MCH (28.0-34.0) pg MCHC (30.0-36.0) g/dL RDW (12.1-15.1) % Plt Count (130-400) 10^3/c mm MPV (7.4-10.4) fL Neut % (Auto) % Lymph % (Auto) % Carlton % (Auto) % Eos % (Auto) % Baso % (Auto) % Neut # (Auto) (1.8-7.7) 10^3/u L Lymph # (Auto) (0.8-4.8) 10^3/u L Carlton # (Auto) (0.2-0.9) 10^3/u L Eos # (Auto) (0.0-0.8) 10^3/u L Baso # (Auto) (0.0-0.1) 10^3/u L Nucleated RBC % (a uto) % Nucleated RBCs # /100WBC Sodium (136-145) mmol/L Potassium (3.5-5.1) mmol/L Chloride (98-107) mmol/L Carbon Dioxide (22-29) mmol/L Anion Gap (5-19) BUN (8-23) mg/dL Creatinine (0.5-0.9) mg/dL GFR Calculation Glucose (65-115) mg/dL Calculated Osmolal ity (285-295) mOsm/k g Calcium (8.5-10.5) mg/dL Total Bilirubin (0.15-1.2) mg/dL AST (0-32) U/L ALT (0-33) U/L Alkaline Phosphata se (35-105) IU/L Creatine Kinase (26-192) U/L Total Protein (6.6-8.7) g/dL Albumin (3.5-5.2) g/dL Globulin (1.3-4.6) g/dL TSH (0.27-4.20) uIU/ mL Urine Color Yellow (Yellow) Urine Appearance Clear (CLEAR) Urine pH 5 (5-7) Ur Specific Gravit y 1.020 (1.005-1.030) Urine Protein Neg (Negative) Urine Glucose (UA) Norm (Normal) Urine Ketones 3+ H (Negative) Urine Blood Neg (Negative) Urine Nitrate Negative (Negative) Urine Bilirubin Neg (Negative) Urine Urobilinogen Norm (Negative) mg/dL Ur Leukocyte Ladan ase Negative (Negative) Discharge Plan Discharge Patient Disposition: Placed in Observation Admit Provider: Jax Watkins Clinical Impression: Nausea & vomiting, Malignant neoplasm of lung, Anemia, Diabetes mellitus Interventions: ED Discharge Assessment Last Done: 04/13/20 17:49 ED Charges Last Done: 04/13/20 17:49 Discharge Date/Time: 04/13/20 18:10 Coding Level of Care Code ED Auto Engine Mechanic for Chg Fwd Exam Comprehensive
[2020-04-13] MEDS: ondansetron 2 mg/ML SDV 2 mL 4 MG IVP (13:57)
[2020-04-13] MEDS: sodium chloride 0.9% 1,000 ML 999 ML IV (13:57)
[2020-04-13 13:58] LABS: Basophils % 0.3 %; Eosinophils # 0.2 10^3/uL (0.0-0.8); Eosinophils % 2.6 %; Hemoglobin 10.5 g/dL (11.5-15.3); Lymphocytes # 0.6 10^3/uL (0.8-4.8); Mean Corpuscular HGB Conc 31.8 g/dL (30.0-36.0); Mean Corpuscular Hemoglobin 30.3 pg (28.0-34.0); Mean Corpuscular Volume 95.1 fL (81-99); Mean Platelet Volume 9.3 fL (7.4-10.4); Monocytes # 0.6 10^3/uL (0.2-0.9); Neutrophils # 5.13 10^3/uL (1.8-7.7); Neutrophils % 78.3 %; Nucleated Red Blood Cells % 0 %; Platelet Count 279 10^3/cmm (130-400); Red Blood Count 3.47 10^6/uL (4.1-5.3); Red Cell Distribution Width 15.9 % (12.1-15.1); White Blood Count 6.6 10^3/uL (4.0-10.0)
[2020-04-13 14:18] LABS: Alanine Aminotransferase < 5 U/L (0-33); Albumin Level 3.7 g/dL (3.5-5.2); Alkaline Phosphatase 55 IU/L (35-105); Anion Gap 21.7 (5-19); Aspartate Amino Transferase 12 U/L (0-32); Blood Urea Nitrogen 7 mg/dL (8-23); Calcium 9.1 mg/dL (8.5-10.5); Carbon Dioxide 18 mmol/L (22-29); Chloride 97 mmol/L (98-107); Creatine Phosphokinase 13 U/L (26-192); Globulin 3.3 g/dL (1.3-4.6); Glucose 103 mg/dL (65-115); Osmolality Calculated 274 mOsm/kg (285-295); Potassium 3.7 mmol/L (3.5-5.1); Sodium 133 mmol/L (136-145); Total Bilirubin 0.2 mg/dL (0.15-1.2)
[2020-04-13] MEDS: LORazepam 2 mg/mL INJ 1 mL IVP (14:53)
[2020-04-13 16:04] LABS: Add Urine Microscopic? NO
[2020-04-13 16:12] LABS: Bilirubin Urine Neg (Negative); Blood Urine Neg (Negative); Glucose Urine UA Norm (Normal); Ketones Urine 3+ (Negative); Leukocyte Esterase Urine Negative (Negative); Nitrate Urine Negative (Negative); Protein Urine Neg (Negative); Urine Appearance Clear (CLEAR); Urine Color Yellow (Yellow); Urobilinogen Urine Norm (Negative); pH Urine 5 (5-7)
[2020-04-13] MEDS: morphine 4 mg/mL SDV 1 mL IVP (16:51)
[2020-04-13] MEDS: haloperidol inj 5 mg/mL INJ 1 mL 2.5 MG IVP (16:54)
--- NOTE | 2020-04-13 17:13 | CTR_ITS ---
PROCEDURE INFORMATION: Exam: CT Chest With Contrast Exam date and time: 04/13/2020 7:02 PM Age: 74 years old Clinical indication: Nausea and vomiting; Shortness of breath; Prior surgery; Surgery date: 6+ months; Surgery type: Port, hyst; Patient HX: HX of lung and esophageal CA C/O SOB, weakness and n/v; Additional info: PT with lung CA presenting with n/v TECHNIQUE: Imaging protocol: Computed tomography of the chest with intravenous contrast. Radiation optimization: All CT scans at this facility use at least one of these dose optimization techniques: automated exposure control; mA and/or kV adjustment per patient size (includes targeted exams where dose is matched to clinical indication); or iterative reconstruction. Contrast material: OMNI 300; Contrast volume: 95 ml; Contrast route: INTRAVENOUS (IV); COMPARISON: CT abdomen pelvis w con* [id number] 07/21/2017 10:07 AM RADIATION DOSE METRICS: Total DLP (mGy-cm): 1319.06 FINDINGS: Lungs: There is advanced lung emphysema and atelectasis. Areas of patchy ground-glass opacification are identified in the bilateral lungs and especially in the upper lobes of the lung. This is not significantly changed. Pleural space: There is a small right pleural effusion. No pneumothorax. Heart: Unremarkable. No cardiomegaly. No pericardial effusion. Aorta: Unremarkable. No aortic aneurysm. Lymph nodes: There are subcentimeter AP window mediastinal lymph nodes. Bones/joints: Degenerative change is identified in the spine. There is no evidence for acute fracture or malalignment. Soft tissues: Unremarkable. IMPRESSION: There are no acute concerning abnormalities. No significant change when compared with 04/05/2020. PROCEDURE INFORMATION: Exam: CT Abdomen And Pelvis With Contrast Exam date and time: 04/13/2020 7:02 PM Age: 74 years old Clinical indication: Nausea and vomiting; Shortness of breath; Prior surgery; Surgery date: 6+ months; Surgery type: Port, hyst; Patient HX: HX of lung and esophageal CA C/O SOB, weakness and n/v; Additional info: PT with lung CA presenting with n/v TECHNIQUE: Imaging protocol: Computed tomography of the abdomen and pelvis with intravenous contrast. Radiation optimization: All CT scans at this facility use at least one of these dose optimization techniques: automated exposure control; mA and/or kV adjustment per patient size (includes targeted exams where dose is matched to clinical indication); or iterative reconstruction. Contrast material: OMNI 300; Contrast volume: 95 ml; Contrast route: INTRAVENOUS (IV); COMPARISON: CT abdomen pelvis w con* [id number] 07/21/2017 10:07 AM RADIATION DOSE METRICS: Total DLP (mGy-cm): 1319.06 FINDINGS: Liver: Normal. No mass. Gallbladder and bile ducts: The gallbladder is contracted. No evidence for cholecystitis. Pancreas: There is fatty infiltration of the pancreas. No evidence for pancreatitis or for a pancreatic mass. Spleen: Normal. No splenomegaly. Adrenals: Normal. No mass. Kidneys and ureters: Normal. No hydronephrosis. Stomach and bowel: Colonic diverticula are present although there are no CT findings to suggest diverticulitis. No bowel obstruction or wall thickening. Appendix: No evidence of appendicitis. Intraperitoneal space: Unremarkable. No free air. No significant fluid collection. Vasculature: Unremarkable. No abdominal aortic aneurysm. Lymph nodes: Unremarkable. No enlarged lymph nodes. Urinary bladder: Unremarkable as visualized. Reproductive: Unremarkable as visualized. Bones/joints: There has been ORIF of the proximal left femur. Degenerative change is identified in the spine. There is no evidence for acute fracture or malalignment. Soft tissues: Unremarkable. CT/CT chest abd pel w con* IMPRESSION: There are no acute concerning abnormalities. Radiation Dose CTDIVOL = (mGy): DLP = 1319.06~1319.06 (mGy-cm)
--- NOTE | 2020-04-13 17:18 | PM.HP ---
Providers/Chief Complaint Primary Care Provider: Burak Yi Chief Complaint: N/V x 4 days History of Present Illness Amanda Molina is a 74 year old female with past medical history of squamous cell lung cancer under Dr. Berger's care. Her last radiation therapy was about 10 days ago. She did not tolerate chemotherapy. She is presenting today with complaints of intractable nausea and vomiting. She reports feeling very weak. She had multiple episodes of vomiting. It is green watery emesis. No blood. The chart indicates that she also has diarrhea but the patient denies it. She reports abdominal pain. She reports cough and some shortness of breath. However she reports that the symptoms have not changed significantly. Denies fevers or chills. Denies any recent travel. No sick contacts. Denies any changes in the diet or any suspicious food. She was given multiple doses of different medications in the emergency room but her symptoms still persist. She denies any similar episodes in the past. Her chest x-ray was read unremarkable today. However her chest CT which was done about a week ago showed the following: IMPRESSION: 1. Patchy groundglass infiltrate in the right hilum and right upper lobe medially may be due to radiation fibrosis. 2. Additional patchy hazy groundglass infiltrates in both upper lobes mainly subpleural in location.Correlation for pneumonitis. 3. Small right pleural effusion with subsegmental atelectasis in lung bases. 4. FDG avid right lower lobe pulmonary nodule no longer visualized. 5. Improved anterior mediastinal, peribronchial, and subcarinal lymphadenopathy. No progressed lymphadenopathy. Residual right hilar lymph node measuring 9 mm. 6. Small pericardial effusion. The patient reports having diabetes which is according to her is well controlled. She reports well-controlled hypertension. She denies any rectal blood or black stool. She has chronic anemia. Review of Systems General: Reports: 10 or more systems reviewed and unremarkable except in HPI and below Medications/Allergies Home Medications Medication Instructions Recorded Confirmed Last Taken Type alprazolam 1 mg tablet 1 mg PO BID PRN 08/21/19 04/13/20 12/25/19 History clopidogrel 75 mg tablet 75 mg PO DAILY 08/21/19 04/13/20 11/17/19 History escitalopram oxalate 20 mg tablet 20 mg PO DAILY tab 08/21/19 04/13/20 12/25/19 20:00 History hydrocodone 10 mg-acetaminophen 1 tab PO Q4H PRN tab 08/21/19 04/13/20 12/26/19 05:00 History 325 mg tablet levothyroxine 137 mcg capsule 137 mcg PO DAILY 08/21/19 04/13/20 12/25/19 20:00 History lovastatin 20 mg tablet 20 mg PO DAILY 08/21/19 04/13/20 12/25/19 20:00 History metformin 500 mg tablet 500 mg PO BID 08/21/19 04/13/20 12/25/19 20:00 History trazodone 50 mg tablet 50 mg PO DAILY 08/21/19 04/13/20 12/25/19 20:00 History fesoterodine 8 mg tablet,extended 8 mg PO DAILY #30 tab 03/13/20 04/13/20 Unknown Rx release 24 hr furosemide [Lasix] 20 mg PO BID 04/13/20 04/13/20 Unknown History gabapentin See Rx Instructions .ROUTE .COMPLEX 04/13/20 04/13/20 Unknown History Allergies Allergy/AdvReac Type Severity Reaction Status Date / Time adhesive tape Allergy BLISTERS Verified 01/26/20 10:01 citalopram [From Celexa] Allergy NA Verified 01/26/20 10:01 duloxetine [From Cymbalta] Allergy NA Verified 01/26/20 10:01 PFSH Acute PFSH: Medical History Chronic cystitis Diabetes Gross hematuria H/O fracture of femur has an artifical femur left leg Malignant neoplasm of lung Urgency incontinence Surgical History H/O oral surgery H/O pneumonectomy H/O: hysterectomy S/P cataract surgery Family History Mother , [id number] No problems noted. Father , 69-lung cancer Cancer Denies family history of Anesthesia complication Bleeding disorder Social History Smoking and tobacco status: never smoked Alcohol intake: never Adopted: No Caregiver/support person: No Lives independently: No Household members: family Marital status: / Current occupational status: retired Vitals/I&O/Wt Last Vital Signs Temp 98.2 F 04/13/20 13:32 Pulse 84 04/13/20 15:56 Resp 17 04/13/20 16:51 BP 149/100 04/13/20 16:49 Pulse Ox 96 04/13/20 16:49 Weight last 48 hrs Weight 70.307 kg Physical Exam Narrative: EXAM NARRATIVE: The patient is awake alert and oriented x4. In mild to moderate distress secondary to nausea. Her responses are adequate. But she looks very tired and generally weak. Skin is warm and dry. Pale. Dry mucous membranes Eyes Nura, extraocular muscles are intact. No icterus. Neck is supple. No JVD. Lungs bilateral crackles are present. No respiratory distress Heart S1, S2, regular. Initially she was very tachycardic. According to Dr. Carreno it improved with IV fluids. Abdomen is soft, slightly tender to touch generally. No guarding. No rebound. Bowel sounds are present. Extremities no edema cyanosis or calf tenderness bilaterally Neuro exam appears to be nonfocal. Normal speech. Data : 04/13/20 13:45 04/13/20 13:45 A&P Additional A&P Information 74-year-old female with past medical history of lung squamous cell carcinoma on radiation treatments under Dr. Berger's care who is presenting with intractable nausea and vomiting for the last 4 days. Reports abdominal pain. Has significant dehydration. Nausea and vomiting. Not sure of what exactly precipitated this event. Her last chemotherapy was about 2 weeks ago. I texted Dr. Berger and asked his opinion about additional imaging studies. He agreed with CT of the chest, abdomen and pelvis and MRI of the brain. 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 Will use Zofran, Compazine, benzos to help with her symptoms. She will receive pain medications as needed as well. Dehydration. She has associated mild hyponatremia. We will hydrate and monitor her. Anemia which is chronic secondary to probably cancer. I expect that this will worsen with hemodilution. We will monitor. If we need to we will transfuse. DVT prophylaxis. Teds and SCDs. I want to make sure that there is no evidence of bleeding before I start her on anticoagulation. History of hypertension. Will use as needed medications to control her blood pressure. Diabetes. I will start her on insulin sliding scale for now. The patient takes Plavix. She does not endorse history of coronary artery disease or stroke. For now I will continue Plavix. CODE STATUS. She wants to be full code. The plan of care was discussed with the patient and her family at the bedside. They verbalized understanding and agreement. Attestations Medical Necessity Statement*: Observation for now. Hopefully imaging studies will will not show any new abnormalities and her symptoms will improve tomorrow. Coding Level of Care Code Acute Registered Nurse for Raffi Quick
[2020-04-13 18:01] LABS: Thyroid Stimulating Hormone 4.48 uIU/mL (0.27-4.20)
[2020-04-13] MEDS: sodium chloride 0.9% 1,000 ML 100 ML IV (18:43)
[2020-04-13 20:08] LABS: Glucose Point of Care 111 mg/dL (70-110)
[2020-04-13] MEDS: gabapentin 400 mg Capsule 1200 MG PO (20:37)
[2020-04-13] MEDS: trazodone 50 mg Tablet PO (20:37)
[2020-04-13 21:11] LABS: SARS Covid-2 Antigen Negative (Negative)
[2020-04-13] MEDS: iohexol 300 mg/mL 100 mL Btl IV (21:16)
[2020-04-14] VITALS (7 sets, daily range): BP systolic 117–157; BP diastolic 64–83; PULSE 74–113; RESP 16–20; TEMP 35.8–37.9; O2SAT 94–96
[2020-04-14] MEDS: gabapentin 300 mg Capsule 600 MG PO ×2 (05:50→11:44)
[2020-04-14 06:01] LABS: Basophils % 0.3 %; Eosinophils # 0.2 10^3/uL (0.0-0.8); Eosinophils % 3.4 %; Hematocrit 34.2 % (37.0-47.0); Hemoglobin 10.3 g/dL (11.5-15.3); Lymphocytes # 0.7 10^3/uL (0.8-4.8); Lymphocytes % 10.5 %; Mean Corpuscular HGB Conc 30.1 g/dL (30.0-36.0); Mean Corpuscular Hemoglobin 30.4 pg (28.0-34.0); Mean Corpuscular Volume 100.9 fL (81-99); Mean Platelet Volume 9.7 fL (7.4-10.4); Monocytes # 0.8 10^3/uL (0.2-0.9); Monocytes % 13.5 %; Neutrophils # 4.41 10^3/uL (1.8-7.7); Neutrophils % 70.9 %; Nucleated Red Blood Cells % 0 %; Platelet Count 238 10^3/cmm (130-400); Red Blood Count 3.39 10^6/uL (4.1-5.3); Red Cell Distribution Width 16.1 % (12.1-15.1); White Blood Count 6.2 10^3/uL (4.0-10.0)
[2020-04-14 06:21] LABS: Blood Urea Nitrogen 6 mg/dL (8-23); Calcium 8.5 mg/dL (8.5-10.5); Carbon Dioxide 18 mmol/L (22-29); Chloride 103 mmol/L (98-107); Glucose 77 mg/dL (65-115); Magnesium 1.9 mg/dL (1.7-2.3); Osmolality Calculated 276 mOsm/kg (285-295); Phosphorus 2.9 mg/dL (2.5-4.5); Sodium 135 mmol/L (136-145)
[2020-04-14] MEDS: clopidogrel 75 mg Tablet PO (08:41)
[2020-04-14] MEDS: levothyroxine 112 mcg Tablet PO (08:41)
[2020-04-14] MEDS: levothyroxine 25 mcg Tablet PO (08:41)
[2020-04-14] MEDS: sodium chloride 0.9% 1,000 ML 100 ML IV (08:41)
[2020-04-14 09:56] LABS: Free T4 Free Thyroxine 1.11 ng/dL (0.82-1.77)
--- NOTE | 2020-04-14 15:52 | PM.PN ---
Subjective Subjective: Interval history: Patient is currently sleeping. She is arousable. She reports being tired. Did not sleep well last night. She reports that her nausea is better. No more vomiting. Denies abdominal pain. No chest pain, shortness of breath, cough, palpitations Medications: Reviewed: Yes Medication Review Details: Generic Name Dose Route Start Last Admin Trade Name Vincent PRN Reason Stop Dose Admin Clopidogrel Bisulf ate 75 mg 04/14/20 09:00 04/14/20 08:41 Plavix PO 75 mg DAILY MICHELLE Administration Gabapentin 600 mg 04/14/20 06:00 04/14/20 11:44 Neurontin PO 600 mg 0600,1200 MICHELLE Administration Gabapentin 1,200 mg 04/13/20 21:00 04/13/20 20:37 Neurontin PO 1,200 mg BEDTIME MICHELLE Administration Sodium Chloride 1,000 mls @ 100 m ls/hr 04/13/20 17:15 04/14/20 08:41 Sodium Chloride 0.9% IV 100 mls/hr .Q10H MICHELLE Administration Levothyroxine Sodi um 112 mcg 04/14/20 09:00 04/14/20 08:41 Synthroid PO 112 mcg DAILY MICHELLE Administration Levothyroxine Sodi um 25 mcg 04/14/20 09:00 04/14/20 08:41 Synthroid PO 25 mcg DAILY MICHELLE Administration Trazodone HCl 50 mg 04/13/20 21:00 04/13/20 20:37 Desyrel PO 50 mg BEDTIME MICHELLE Administration Vitals/I&O/Wt Last Vital Signs Temp 99.2 F 04/14/20 11:31 Pulse 74 04/14/20 11:31 Resp 20 H 04/14/20 11:31 BP 126/64 04/14/20 11:31 Pulse Ox 95 04/14/20 11:31 04/14/20 04/14/20 04/14/20 06:59 14:59 22:59 Intake Total 1120 / 1240 1080 / 1080 Output Total 550 / 550 400 / 400 Balance 570 / 690 1080 / 1080 -400 / 680 Weight last 48 hrs Weight 70.307 kg Physical Exam Narrative: EXAM NARRATIVE: The patient is awake alert and oriented x4. No acute distress. Her responses are adequate. Little sleepy Skin is warm and dry. Pale. Moist mucous membranes. Eyes Nura, extraocular muscles are intact. No icterus. Neck is supple. No JVD. Clear bilaterally lungs. No respiratory distress Heart S1, S2, regular. Abdomen is soft, nontender. No guarding. No rebound. Bowel sounds are present. Extremities no edema cyanosis or calf tenderness bilaterally Normal speech. No focal weakness. Data : 04/14/20 05:40 04/14/20 05:40 A&P Additional A&P Information 74-year-old female with past medical history of lung squamous cell carcinoma on radiation treatments under Dr. Berger's care who is presenting with intractable nausea and vomiting for the last 4 days. Reports abdominal pain. Has significant dehydration. Nausea and vomiting. Currently resolved. CT did not show any findings which could explain her symptoms. MRI is still pending. I will decrease her lorazepam and stop Ambien. I think her somnolence is due to medications. Stopping morphine as well. Dehydration. She has associated mild hyponatremia. Resolved. We will stop her IV fluids Anemia which is chronic secondary to probably cancer. Currently stable. We will continue monitoring. DVT prophylaxis. Teds and SCDs. I want to make sure that there is no evidence of bleeding before I start her on anticoagulation. History of hypertension. Will use as needed medications to control her blood pressure. Abnormal TSH. We will check her free T4 level. Might need adjustment of her thyroid medications prior to discharge. Diabetes. Insulin sliding scale The patient takes Plavix. She does not endorse history of coronary artery disease or stroke. For now I will continue Plavix. CODE STATUS. Full code The plan of care was discussed with the patient. They verbalized understanding and agreement. Attestations Medical Necessity Statement*: Hopefully will be able to discharge the patient tomorrow after we have MRI report and her lethargy is improved. Coding Level of Care Code Acute Manager Room for Raffi Quick
[2020-04-14] MEDS: acetaminophen 325 mg Tablet 650 MG PO (16:15)
[2020-04-14] MEDS: TRAMadol 50 mg Tablet PO (17:19)
[2020-04-14] MEDS: trazodone 50 mg Tablet PO (22:33)
[2020-04-14] MEDS: gabapentin 400 mg Capsule 1200 MG PO (22:33)
[2020-04-15] VITALS (7 sets, daily range): BP systolic 117–161; BP diastolic 53–87; PULSE 64–109; RESP 18–22; TEMP 36.8–38.4; O2SAT 93–97
[2020-04-15] MEDS: acetaminophen 325 mg Tablet 650 MG PO (03:18)
[2020-04-15] MEDS: gabapentin 300 mg Capsule 600 MG PO ×2 (05:08→14:04)
[2020-04-15 05:24] LABS: Basophils % 0.4 %; Eosinophils # 0.3 10^3/uL (0.0-0.8); Eosinophils % 4.6 %; Hemoglobin 10.3 g/dL (11.5-15.3); Lymphocytes # 0.6 10^3/uL (0.8-4.8); Lymphocytes % 10.4 %; Mean Corpuscular HGB Conc 32.2 g/dL (30.0-36.0); Mean Corpuscular Hemoglobin 30.1 pg (28.0-34.0); Mean Corpuscular Volume 93.6 fL (81-99); Mean Platelet Volume 9.3 fL (7.4-10.4); Monocytes # 0.7 10^3/uL (0.2-0.9); Monocytes % 12.7 %; Neutrophils # 4.05 10^3/uL (1.8-7.7); Nucleated Red Blood Cells % 0 %; Platelet Count 275 10^3/cmm (130-400); Red Blood Count 3.42 10^6/uL (4.1-5.3); Red Cell Distribution Width 15.9 % (12.1-15.1); White Blood Count 5.7 10^3/uL (4.0-10.0)
[2020-04-15 05:43] LABS: Magnesium 1.7 mg/dL (1.7-2.3)
[2020-04-15 06:26] LABS: Albumin Level 3.3 g/dL (3.5-5.2); Anion Gap 18.4 (5-19); Blood Urea Nitrogen 3 mg/dL (8-23); Calcium 8.8 mg/dL (8.5-10.5); Carbon Dioxide 19 mmol/L (22-29); Chloride 102 mmol/L (98-107); Free T4 Free Thyroxine 1.36 ng/dL (0.82-1.77); Glucose 99 mg/dL (65-115); Phosphorus 2.8 mg/dL (2.5-4.5); Potassium 3.4 mmol/L (3.5-5.1); Sodium 136 mmol/L (136-145)
[2020-04-15] MEDS: TRAMadol 50 mg Tablet PO ×2 (08:04→21:34)
[2020-04-15] MEDS: levothyroxine 25 mcg Tablet PO (08:05)
[2020-04-15] MEDS: levothyroxine 112 mcg Tablet PO (08:05)
[2020-04-15] MEDS: clopidogrel 75 mg Tablet PO (08:05)
--- NOTE | 2020-04-15 15:29 | CTR_ITS ---
PROCEDURE INFORMATION: Exam: CT Head Without Contrast Exam date and time: 04/15/2020 4:52 PM Age: 74 years old Clinical indication: Pain; Headache TECHNIQUE: Imaging protocol: Computed tomography of the head without contrast. Radiation optimization: All CT scans at this facility use at least one of these dose optimization techniques: automated exposure control; mA and/or kV adjustment per patient size (includes targeted exams where dose is matched to clinical indication); or iterative reconstruction. COMPARISON: No relevant prior studies available. RADIATION DOSE METRICS: Total DLP (mGy-cm): 742.43 FINDINGS: Brain: There is moderate cortical atrophy. Low-density changes in the white matter are consistent with nonspecific small vessel chronic ischemic change. There is no intracranial mass, hemorrhage or edema. Cerebral ventricles: No ventriculomegaly. Bones/joints: Unremarkable. No acute fracture. Paranasal sinuses: Visualized sinuses are unremarkable. No fluid levels. Mastoid air cells: Visualized mastoid air cells are well aerated. Soft tissues: Unremarkable. CT/CT head wo con* [id number] IMPRESSION: No acute intracranial finding Radiation Dose CTDIVOL = (mGy): DLP = 742.43 (mGy-cm)
[2020-04-15 16:43] LABS: Add Urine Microscopic? YES; Bilirubin Urine Neg (Negative); Blood Urine Neg (Negative); Glucose Urine UA Norm (Normal); Ketones Urine 1+ (Negative); Leukocyte Esterase Urine Negative (Negative); Nitrate Urine Negative (Negative); Protein Urine Neg (Negative); Urine Appearance Hazy (CLEAR); Urine Color Yellow (Yellow); Urobilinogen Urine Norm (Negative); pH Urine 7 (5-7)
[2020-04-15 17:19] LABS: Add Urine Culture? No; Bacteria Urine 3+ /hpf; RBC Urine 0-4 /hpf (0-2); Squamous Epithelial Cell Urine 0-4 /hpf (0-5)
--- NOTE | 2020-04-15 17:39 | PM.PN ---
Subjective Subjective: Interval history: Developed fever to 101.1 today. Tachycardic and febrile to 109. Continues to complain of persistent headache. MRI unable to be performed today as the machine was down. Medications: Reviewed: Yes Medication Review Details: Generic Name Dose Route Start Last Admin Trade Name Vincent PRN Reason Stop Dose Admin Clopidogrel Bisulf ate 75 mg 04/14/20 09:00 04/14/20 08:41 Plavix PO 75 mg DAILY MICHELLE Administration Gabapentin 600 mg 04/14/20 06:00 04/14/20 11:44 Neurontin PO 600 mg 0600,1200 MICHELLE Administration Gabapentin 1,200 mg 04/13/20 21:00 04/13/20 20:37 Neurontin PO 1,200 mg BEDTIME MICHELLE Administration Sodium Chloride 1,000 mls @ 100 m ls/hr 04/13/20 17:15 04/14/20 08:41 Sodium Chloride 0.9% IV 100 mls/hr .Q10H MICHELLE Administration Levothyroxine Sodi um 112 mcg 04/14/20 09:00 04/14/20 08:41 Synthroid PO 112 mcg DAILY MICHELLE Administration Levothyroxine Sodi um 25 mcg 04/14/20 09:00 04/14/20 08:41 Synthroid PO 25 mcg DAILY MICHELLE Administration Trazodone HCl 50 mg 04/13/20 21:00 04/13/20 20:37 Desyrel PO 50 mg BEDTIME MICHELLE Administration Vitals/I&O/Wt Last Vital Signs Temp 101.1 F H 04/15/20 14:59 Pulse 109 H 04/15/20 14:59 Resp 20 H 04/15/20 14:59 BP 155/85 04/15/20 14:59 Pulse Ox 94 04/15/20 14:59 04/15/20 04/15/20 04/15/20 06:59 14:59 22:59 Intake Total 600 / 600 Output Total 0 / 400 Balance 0 / 1040 600 / 600 Physical Exam Narrative: EXAM NARRATIVE: GEN: Awake, alert and oriented, no acute distress CVS: S1S2 N RS: CTA B/L Abd: Soft, nt/nd , bs+ 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 Berger's care who is presenting with intractable nausea and vomiting for the last 4 days. Reports abdominal pain. Additionally developed fever to 101.1 today. #Fever, source under evaluation CT chest abdomen and pelvis without any overt source of deep infection. Check blood culture, check urine analysis and urine culture. Start empiric imipenem as past urine cultures are with ESBL E. coli. Currently also complaining of headache, will go ahead and obtain stat CT head. Low suspicion for meningitis at this point as patient is otherwise alert awake oriented without any gross changes in mental status. COVID rapid antigen was negative upon admission, no new changes noted on CT of the chest Nausea and vomiting. Currently resolved. Was planned to undergo an MRI of the brain which remains pending as the MRI machine was down today. Anemia which is chronic secondary to probably cancer. Currently stable. We will continue monitoring. DVT prophylaxis. Teds and SCDs. History of hypertension. Will use as needed medications to control her blood pressure. Abnormal TSH. Normal free T4 level Diabetes. Insulin sliding scale The patient takes Plavix. She does not endorse history of coronary artery disease or stroke. For now continue Plavix. CODE STATUS. Full code The plan of care was discussed with the patient. They verbalized understanding and agreement. Attestations Medical Necessity Statement*: Fever up to 101.1, undergoing source evaluation. Coding Level of Care Code Acute Splunk Developer for Raffi Quick
[2020-04-15] MEDS: ketorolac 30 mg/mL INJ 15 MG IVP (17:59)
[2020-04-15] MEDS: trazodone 50 mg Tablet PO (21:30)
[2020-04-15] MEDS: gabapentin 400 mg Capsule 1200 MG PO (21:30)
[2020-04-16 04:00] VITALS: BP 134/78; PULSE 98; RESP 20; TEMP 37.2; O2SAT 93
[2020-04-16] MEDS: gabapentin 300 mg Capsule 600 MG PO ×2 (05:34→11:33)
[2020-04-16 06:05] LABS: Basophils % 0.4 %; Eosinophils # 0.5 10^3/uL (0.0-0.8); Eosinophils % 8.5 %; Hematocrit 34.1 % (37.0-47.0); Lymphocytes # 0.7 10^3/uL (0.8-4.8); Lymphocytes % 11.5 %; Mean Corpuscular HGB Conc 32.3 g/dL (30.0-36.0); Mean Corpuscular Hemoglobin 30.7 pg (28.0-34.0); Mean Corpuscular Volume 95.3 fL (81-99); Mean Platelet Volume 9.2 fL (7.4-10.4); Monocytes # 0.8 10^3/uL (0.2-0.9); Monocytes % 14.3 %; Neutrophils # 3.66 10^3/uL (1.8-7.7); Neutrophils % 64.6 %; Nucleated Red Blood Cells % 0 %; Platelet Count 284 10^3/cmm (130-400); Red Blood Count 3.58 10^6/uL (4.1-5.3); Red Cell Distribution Width 15.8 % (12.1-15.1); White Blood Count 5.7 10^3/uL (4.0-10.0)
[2020-04-16 06:37] LABS: Alanine Aminotransferase < 5 U/L (0-33); Albumin Level 3.3 g/dL (3.5-5.2); Alkaline Phosphatase 53 IU/L (35-105); Anion Gap 18.9 (5-19); Aspartate Amino Transferase 10 U/L (0-32); Blood Urea Nitrogen 5 mg/dL (8-23); Calcium 8.6 mg/dL (8.5-10.5); Carbon Dioxide 19 mmol/L (22-29); Chloride 102 mmol/L (98-107); Globulin 3.2 g/dL (1.3-4.6); Glucose 88 mg/dL (65-115); Osmolality Calculated 281 mOsm/kg (285-295); Sodium 137 mmol/L (136-145); Total Bilirubin 0.3 mg/dL (0.15-1.2); Total Protein 6.5 g/dL (6.6-8.7)
[2020-04-16 07:09] LABS: Potassium 2.9 mmol/L (3.5-5.1)
[2020-04-16 07:35] VITALS: BP 135/66; PULSE 103; RESP 16; TEMP 37.4; O2SAT 93
[2020-04-16] MEDS: levothyroxine 25 mcg Tablet PO (08:12)
[2020-04-16] MEDS: clopidogrel 75 mg Tablet PO (08:12)
[2020-04-16] MEDS: levothyroxine 112 mcg Tablet PO (08:12)
[2020-04-16 11:16] VITALS: BP 143/81; PULSE 123; RESP 16; TEMP 37.3; O2SAT 95
[2020-04-16] MEDS: ketorolac 30 mg/mL INJ 15 MG IVP (11:33)
--- NOTE | 2020-04-16 11:58 | PC.PHAR ---
Pharmacokinetic dosing service Objective: Patient: Floor: Age: 74 yo Serum creatinine: 0.6 mg/dL Height: 65.0 Inches Weight (kg): 70 Assessment: IBW (kg): 57.00 Dosing wt(kg): 70 Estimated Creatinine clearance (ml/min): 79.5 CRCL method: Cockcroft and Gault using adjusted body weight Drug selected: Vancomycin Loading dose (mg): Vd (liters): 49.0 (factor used: 0.7 L/kg) Iker (hr-1): 0.070 Half life (hrs): 9.90 CLvanco= 3.430 L/hr Recommended dose: 1000 mg Interval: 12 hrs Infusion time (hrs): 1 Predicted peak (mcg/mL): 34.7 Predicted trough (mcg/mL): 16.07 Total body weight is being used for vancomycin dosing. Renal function is stable [ ] /unstable [ ] Recommendations: Give Vancomycin 1000 mg q 12 hrs with an expected Cpeak of 34.7 mcg/ml and an expected Ctrough of 16.07 mcg/ml AUC 0-24 /ALIN Data: ALIN 0.5 mcg/mL: AUC/ALIN: 1166.2 ALIN 1.0 mcg/mL: AUC/ALIN: 583.1 --------- ALIN 1.5 mcg/mL: AUC/ALIN: 388.7 ALIN 2.0 mcg/mL: AUC/ALIN: 291.5 Thank you for the consult, will continue to follow.
--- NOTE | 2020-04-16 12:00 | PC.SOCIAL ---
Important Medicare Message Reviewed page 1 and 2 of Important Medicare Message with patient. Verbalized understanding and signed page 2. Original to patient and copy in chart.
[2020-04-16] MEDS: potassium chloride ER 10 mEq Tablet 40 MEQ PO (13:15)
[2020-04-16] MEDS: potassium chloride premix 40 MEQ/100 ML PREMIX 25 MEQ IV (13:17)
[2020-04-16] MEDS: vancomycin 1,000 MG in sodium chloride 0.9% 250 ML 250 MG IV (15:09)
[2020-04-16 15:14] VITALS: BP 112/55; PULSE 99; RESP 14; TEMP 37.5; O2SAT 94
--- NOTE | 2020-04-16 17:57 | P.PN_ITS ---
Subjective Subjective: Interval history: Subjectively feels better today. Fever curve is improving. Blood culture returned with gram-positive cocci awaiting further speciation. CT head performed yesterday did not show any acute intracranial events. 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 Berger's care who is presenting with intractable nausea and vomiting for the last 4 days. Reports abdominal pain. Additionally developed fever to 101.1 #Fever, source under evaluation CT chest abdomen and pelvis without any overt source of deep infection. Blood culture reported as positive for gram-positive cocci awaiting further identification, UA not particularly concerning for UTI, urine culture remains pending. Continue empiric imipenem as past urine cultures are with ESBL E. coli. Low suspicion for meningitis at this point as patient is otherwise alert awake oriented without any gross changes in mental status. Headache was much improved after Toradol yesterday. COVID rapid antigen was negative upon admission, no new changes noted on CT of the chest Nausea and vomiting. Currently resolved. Was planned to undergo an MRI of the brain which remains pending as the MRI machine was down again today. Anemia which is chronic secondary to probably cancer. Currently stable. We will continue monitoring. DVT prophylaxis. Teds and SCDs. History of hypertension. Will use as needed medications to control her blood pressure. Abnormal TSH. Normal free T4 level Diabetes. Insulin sliding scale The patient takes Plavix. She does not endorse history of coronary artery disease or stroke. For now continue Plavix. CODE STATUS. Full code The plan of care was discussed with the patient. They verbalized understanding and agreement. Attestations Medical Necessity Statement*: Blood culture positive reported for gram- positive cocci needs to be further identified, need for IV antibiotics, repeat blood cultures. Fever curve improving. Coding Level of Care Code Acute Lease Operator for Raffi Quick
[2020-04-16 20:00] VITALS: BP 133/79; PULSE 96; RESP 18; TEMP 37.3; O2SAT 93
[2020-04-16] MEDS: gabapentin 400 mg Capsule 1200 MG PO (20:05)
[2020-04-16] MEDS: ondansetron 2 mg/ML SDV 2 mL 4 MG IVP (20:05)
[2020-04-16] MEDS: trazodone 50 mg Tablet PO (20:05)
[2020-04-16] MEDS: LORazepam 2 mg/mL INJ 1 mL 1 MG IVP (22:35)
[2020-04-17] MEDS: vancomycin 1,000 MG in sodium chloride 0.9% 250 ML 250 MG IV ×2 (01:00→12:11)
[2020-04-17 04:00] VITALS: BP 128/84; PULSE 114; RESP 18; TEMP 37.6; O2SAT 93
[2020-04-17] MEDS: gabapentin 300 mg Capsule 600 MG PO ×2 (06:05→12:11)
[2020-04-17] MEDS: ondansetron 2 mg/ML SDV 2 mL 4 MG IVP (06:14)
[2020-04-17 07:31] VITALS: BP 137/80; PULSE 99; RESP 16; TEMP 37.2; O2SAT 95
[2020-04-17] MEDS: levothyroxine 25 mcg Tablet PO (09:25)
[2020-04-17] MEDS: levothyroxine 112 mcg Tablet PO (09:25)
[2020-04-17] MEDS: clopidogrel 75 mg Tablet PO (09:25)
--- NOTE | 2020-04-17 10:15 | MR_ITS ---
WS: [id number] MRI BRAIN WITH AND WITHOUT CONTRAST HISTORY: Lung cancer, has vomiting. r/o OPERATOR tumor COMPARISON: 07/03/2011, head CT 04/15/2020 TECHNIQUE: Multiplanar imaging performed through the brain with Prohance 17 ml's IV. No acute infarcts are seen. Jacinto-white matter differentiation is well preserved. . Mild periventricul ar increased T2 and FLAIR signal from microvascular ischemic disease. No prior lacunar infarct or lar ge territory infarct. No susceptibility artifacts or prior lacunar infarcts. Ventricles and extra-axial spaces are normal. Clivus and pituitary gland are normal. Visualized posterior fossa and brainstem are also normal. Postcontrast images are negative for masses or vascular malformations. Dural venous sinuses are normal. Paranasal sinuses: Well aerated with no significant disease. Mastoid air cells: Normal. Calvarium and scalp: Normal. MR/MR head wo/w con [id number] IMPRESSION: 1. No evidence for metastatic disease to the brain. 2. No acute infarct. 3. Mild chronic microvascular ischemic disease.
--- NOTE | 2020-04-17 10:28 | PC.NURSE ---
patient taken for MRI via gurney by transport
[2020-04-17 12:00] VITALS: BP 143/77; PULSE 95; RESP 18; TEMP 37.1; O2SAT 95
[2020-04-17] MEDS: TRAMadol 50 mg Tablet PO (14:25)
[2020-04-17 15:16] VITALS: BP 138/87; PULSE 104; RESP 16; TEMP 37.6; O2SAT 94
--- NOTE | 2020-04-17 16:11 | P.PN_ITS ---
Subjective Subjective: Interval history: fever curve improving, GPC now reported as positive 4/4 from blood cx, pending identification further Medications: Reviewed: Yes Vitals/I&O/Wt Last Vital Signs Temp 99.7 F H 04/17/20 15:16 Pulse 104 H 04/17/20 15:16 Resp 16 04/17/20 15:16 BP 138/87 04/17/20 15:16 Pulse Ox 94 04/17/20 15:16 04/17/20 04/17/20 04/17/20 06:59 14:59 22:59 Intake Total 450 / 1380 220 / 220 Output Total 200 / 1000 250 / 250 Balance 250 / 380 220 / 220 -250 / -30 Physical Exam Narrative: EXAM NARRATIVE: GEN: Awake, alert and oriented, no acute distress CVS: S1S2 N RS: CTA B/L Abd: Soft, nt/nd , bs+ COMMUNICATIONS SENIOR ASSOCIATE: no focal neuro deficits Data : 04/16/20 05:00 04/16/20 05:00 Micro: Microbiology 04/16/20 12:55 Blood Culture - Preliminary Blood NEGATIVE TO DATE 04/16/20 13:00 Blood Culture - Preliminary Blood NEGATIVE TO DATE 04/15/20 15:59 Blood Culture - Preliminary Blood Gram positive cocci 04/15/20 15:55 Blood Culture - Preliminary Blood Gram positive cocci 04/16/20 17:00 C.difficile Toxin B Gene (PCR) - Final Stool Routine Collection A&P Additional A&P Information 74-year-old female with past medical history of lung squamous cell carcinoma s/p chemoradiation , most recently carboplatin ~ one month ago, admitted on 04/13 with intractable nausea and vomiting which is currently improved. During course of admission Additionally developed fever to 101.1 with blood cx 4/4 postive for GPC, awaiting further identification #Fever Positive blood cx from 04/15 now reported positive for GPC, awaiting further speciation. Unable to reach micro tech today to perform coagulase test repeat blood cx including port blood cultures Check echocardiogram to evaluate for endocarditis CT chest abdomen and pelvis without any overt source of deep infection. Lung mass and hilar adenopathy improving as of most recent CT, not currently on immunotherapy. UA not particularly concerning for UTI Discontinue empiric imipenem. Continue vancomycin given 4/4 cx positive for GPC COVID rapid antigen was negative upon admission, no new changes noted on CT of the chest # Nausea and vomiting. Currently resolved. MRI brain witotu any signs of malinant involvement # Anemia which is chronic secondary to probably cancer. Currently stable. We will continue monitoring. # h/o migraines, headche better controlled now # History of hypertension. Will use as needed medications to control her blood pressure. #Abnormal TSH. Normal free T4 level #Diabetes. Insulin sliding scale #The patient takes Plavix. She does not endorse history of coronary artery disease or stroke. For now continue Plavix. CODE STATUS. Full code The plan of care was discussed with the patient. They verbalized understanding and agreement. Attestations Medical Necessity Statement*: GPC bacteremia, source under evalutaion Coding Level of Care Code Acute Transit Coach Operator for Raffi Quick
--- NOTE | 2020-04-17 17:15 | PC.NURSE ---
patient requesting cough medications. marketing writer notified Dr Foy
[2020-04-17 20:00] VITALS: BP 154/85; PULSE 97; RESP 18; TEMP 38.4; O2SAT 93
[2020-04-17] MEDS: gabapentin 400 mg Capsule 1200 MG PO (20:56)
[2020-04-17] MEDS: acetaminophen 325 mg Tablet 650 MG PO (20:57)
[2020-04-17] MEDS: trazodone 50 mg Tablet PO (20:57)
[2020-04-18] VITALS (7 sets, daily range): BP systolic 112–160; BP diastolic 70–81; PULSE 58–112; RESP 18–20; TEMP 36.9–38.3; O2SAT 93–96
[2020-04-18] MEDS: vancomycin 1,000 MG in sodium chloride 0.9% 250 ML 250 MG IV ×2 (01:22→12:52)
[2020-04-18 05:26] LABS: Basophils % 0.6 %; Eosinophils # 0.5 10^3/uL (0.0-0.8); Eosinophils % 8.5 %; Hemoglobin 10.9 g/dL (11.5-15.3); Lymphocytes # 0.6 10^3/uL (0.8-4.8); Lymphocytes % 10.7 %; Mean Corpuscular HGB Conc 32.1 g/dL (30.0-36.0); Mean Corpuscular Hemoglobin 30.2 pg (28.0-34.0); Mean Corpuscular Volume 94.2 fL (81-99); Mean Platelet Volume 8.8 fL (7.4-10.4); Monocytes # 0.7 10^3/uL (0.2-0.9); Monocytes % 12.5 %; Neutrophils # 3.62 10^3/uL (1.8-7.7); Neutrophils % 66.8 %; Nucleated Red Blood Cells % 0 %; Platelet Count 247 10^3/cmm (130-400); Red Blood Count 3.61 10^6/uL (4.1-5.3); Red Cell Distribution Width 15.7 % (12.1-15.1); White Blood Count 5.4 10^3/uL (4.0-10.0)
[2020-04-18] MEDS: gabapentin 300 mg Capsule 600 MG PO ×2 (05:48→11:27)
[2020-04-18 05:55] LABS: Alanine Aminotransferase < 5 U/L (0-33); Albumin Level 3.2 g/dL (3.5-5.2); Alkaline Phosphatase 51 IU/L (35-105); Aspartate Amino Transferase 10 U/L (0-32); Blood Urea Nitrogen 7 mg/dL (8-23); Carbon Dioxide 23 mmol/L (22-29); Chloride 101 mmol/L (98-107); Globulin 3.4 g/dL (1.3-4.6); Glucose 112 mg/dL (65-115); Osmolality Calculated 279 mOsm/kg (285-295); Sodium 135 mmol/L (136-145); Total Bilirubin 0.2 mg/dL (0.15-1.2); Total Protein 6.6 g/dL (6.6-8.7)
--- NOTE | 2020-04-18 08:10 | PC.NURSE ---
pt resting in bed. pt able to take morning PO meds well. pt has not stated that she was nauseous and has not had any episodes of emesis. port is flushing well. pt able to eat breakfast well. pt repositioned and is now watching TV.
[2020-04-18] MEDS: levothyroxine 112 mcg Tablet PO (08:24)
[2020-04-18] MEDS: clopidogrel 75 mg Tablet PO (08:24)
[2020-04-18] MEDS: levothyroxine 25 mcg Tablet PO (08:24)
[2020-04-18] MEDS: LORazepam 2 mg/mL INJ 1 mL 1 MG IVP (10:27)
[2020-04-18] MEDS: acetaminophen 325 mg Tablet 650 MG PO (11:27)
--- NOTE | 2020-04-18 12:12 | PC.NURSE ---
pt states that she is leaving AMA, Dr. Foy notified and arrived on the unit to discuss future treatment care. after Dr. Foy explained the risks of leaving AMA, pt states she is still leaving AMA.
--- NOTE | 2020-04-18 12:50 | PC.NURSE ---
pt decided to stay and continue with care.
[2020-04-18] MEDS: TRAMadol 50 mg Tablet PO (12:51)
--- NOTE | 2020-04-18 15:31 | DCPLANNER ---
Pg 2 of IM updated and reviewed with pt. No questions, copy provided.
--- NOTE | 2020-04-18 17:45 | PM.PN ---
Subjective Subjective: Interval history: Blood cultures are updated to 4 out of 4 positive for gram-positive cocci. Per discussion with real[employer]D preliminary appears to be coag negative staph. There are 2 separate species 1 of staph epidermidis and the other that remains to be identified. However the coag negative staph that remains to be identified has consistent growth out of all 4 blood cultures therefore cannot be dismissed as a contaminant especially with ongoing fevers. A new set of blood cultures have been drawn from her port this morning. Patient continues to spike fever up to 101 Fahrenheit. Medications: Reviewed: Yes Medication Review Details: Generic Name Dose Route Start Last Admin Trade Name Freq PRN Reason Stop Dose Admin Clopidogrel Bisulf ate 75 mg 04/14/20 09:00 04/14/20 08:41 Plavix PO 75 mg DAILY MICHELLE Administration Gabapentin 600 mg 04/14/20 06:00 04/14/20 11:44 Neurontin PO 600 mg 0600,1200 MICHELLE Administration Gabapentin 1,200 mg 04/13/20 21:00 04/13/20 20:37 Neurontin PO 1,200 mg BEDTIME MICHELLE Administration Sodium Chloride 1,000 mls @ 100 m ls/hr 04/13/20 17:15 04/14/20 08:41 Sodium Chloride 0.9% IV 100 mls/hr .Q10H MICHELLE Administration Levothyroxine Sodi um 112 mcg 04/14/20 09:00 04/14/20 08:41 Synthroid PO 112 mcg DAILY MICHELLE Administration Levothyroxine Sodi um 25 mcg 04/14/20 09:00 04/14/20 08:41 Synthroid PO 25 mcg DAILY MICHELLE Administration Trazodone HCl 50 mg 04/13/20 21:00 04/13/20 20:37 Desyrel PO 50 mg BEDTIME MICHELLE Administration Vitals/I&O/Wt Last Vital Signs Temp 98.4 F 04/18/20 15:19 Pulse 58 L 04/18/20 15:19 Resp 18 04/18/20 15:19 BP 112/70 04/18/20 15:19 Pulse Ox 96 04/18/20 15:19 04/18/20 04/18/20 04/18/20 06:59 14:59 22:59 Intake Total 250 / 1070 590 / 590 Output Total 0 / 550 Balance 250 / 520 590 / 590 Physical Exam Narrative: EXAM NARRATIVE: GEN: Awake, alert and oriented, no acute distress CVS: S1S2 N RS: CTA B/L Abd: Soft, nt/nd , bs+ CENTRIFUGAL SCREEN TENDER: no focal neuro deficits Data : 04/18/20 05:08 04/18/20 05:08 Micro: Microbiology 04/15/20 15:59 Blood Culture - Preliminary Blood Staphylococcus epidermidis Coagulase negativ staphylococc 04/18/20 05:08 Blood Culture - Preliminary Blood SPECIMEN COLLECTED 04/18/20 05:02 Blood Culture - Preliminary Blood SPECIMEN COLLECTED 04/16/20 12:55 Blood Culture - Preliminary Blood NEGATIVE TO DATE 04/16/20 13:00 Blood Culture - Preliminary Blood NEGATIVE TO DATE A&P Assessment and plan (1) Coag negative Staphylococcus bacteremia: Status: Acute (2) Anemia: Status: Acute (3) Diabetes mellitus: Status: Acute (4) Malignant neoplasm of lung: Status: Acute (5) Chronic cystitis: Status: Acute Additional A&P Information 74-year-old female with past medical history of lung squamous cell carcinoma s/p chemoradiation , most recently carboplatin ~ one month ago, admitted on 04/13 with intractable nausea and vomiting which is currently improved. During course of admission Additionally developed fever to 101.1 with blood cx / postive for GPC, awaiting further identification #Fever Positive blood cx from 04/15 reported + 4/ repeat blood cx including port blood cultures sent this morning continues to spike daily fever of 101F Check echocardiogram to evaluate for endocarditis CT chest abdomen and pelvis without any overt source of deep infection. Lung mass and hilar adenopathy improving as of most recent CT, not currently on immunotherapy. UA not particularly concerning for UTI Continue vancomycin for directed treatment of CoNS COVID rapid antigen was negative upon admission, no new changes noted on CT of the chest # Nausea and vomiting. Currently resolved. MRI brain without any signs of malinant involvement # Anemia which is chronic secondary to probably cancer. Currently stable. We will continue monitoring. # h/o migraines, headche better controlled now # History of hypertension. Will use as needed medications to control her blood pressure. #Abnormal TSH. Normal free T4 level #Diabetes. Insulin sliding scale #The patient takes Plavix. She does not endorse history of coronary artery disease or stroke. For now continue Plavix. CODE STATUS. Full code The plan of care was discussed with the patient. She verbalized understanding and agreement. Attestations Medical Necessity Statement*: CONS bacteremia, pending identification, daily temp >101 Coding Level of Care Code Acute Innersole Maker for Chg Fwd Diagnoses Coag negative Staphylococcus bacteremia R78.81; B95.7 Anemia D64.9 Diabetes mellitus E11.9 Malignant neoplasm of lung C34.90 Chronic cystitis N30.20
[2020-04-18] MEDS: potassium chloride ER 10 mEq Tablet 40 MEQ PO (18:18)
--- NOTE | 2020-04-18 18:19 | PC.NURSE ---
END OF SHIFT SUMMARY pt able to take morning PO meds well. pt stated that she wanted to leave AMA, Dr. Foy notified and she explained risks of leaving AMA. pt stated that she still wanted to leave AMA. 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 pt able to rest well throughout this afternoon and is able to take evening PO meds well. pt is A/Ox4 and IV is patent. pt is very pleasant. pt is resting in bed watching tv. pt stated no concerns at this time.
[2020-04-18] MEDS: trazodone 50 mg Tablet PO (22:02)
[2020-04-18] MEDS: gabapentin 400 mg Capsule 1200 MG PO (22:02)
[2020-04-18] MEDS: ketorolac 30 mg/mL INJ 15 MG IVP (22:42)
--- NOTE | 2020-04-18 22:47 | USCV_ITS ---
Amanda Molina Age: 74 Gender: F : 1945 Exam Date: 04/18/2020 06:19 Ordering Phys: Olga Foy MD Technologist: Valencia Martinez [place] [facility] [place]: GRAM POSITIVE OCCI BACTEREMIA. EVALUATE FOR VEGETATIONS BP: 122 / 74 HR: 87 Rhythm: Sinus Technical Quality: Adequate MEASUREMENTS (Male / Female) Normal Values 2D ECHO LV Diastolic Diameter PLAX 4.3 cm 4.2 - 5.9 / 3.9 - 5.3 cm LV Systolic Diameter PLAX 3.7 cm LV Chamber Size 2.5 cm IVS Diastolic Thickness 1.3 cm 0.6 - 1.0 / 0.6 - 0.9 cm IVS Systolic Thickness 2.0 cm LVPW Diastolic Thickness 1.4 cm 0.6 - 1.0 / 0.6 - 0.9 cm LVPW Systolic Thickness 1.9 cm RV Chamber Size 2.3 cm LVOT Diameter 2.0 cm LV Ejection Fraction 2D Teich 32.6 % LV Ejection Fraction MOD 2C 67.5 % LV Ejection Fraction 2C AL 69.1 % LA Diameter 3.1 cm LA Width 1.8 cm LA Height 3.7 cm RA Width 2.3 cm RA Height 4.0 cm Aorta at Sinotubular Diameter 3.5 cm M-MODE LV Diastolic Diameter MM 4.2 cm 4.2 - 5.9 / 3.9 - 5.3 cm LV Systolic Diameter MM 2.8 cm LV Ejection Fraction MM Teich 61.9 % IVS Diastolic Thickness MM 1.1 cm 0.6 - 1.0 / 0.6 - 0.9 cm IVS Systolic Thickness MM 1.3 cm LVPW Diastolic Thickness MM 1.2 cm 0.6 - 1.0 / 0.6 - 0.9 cm LVPW Systolic Thickness MM 1.7 cm RV Diastolic Diameter MM 1.3 cm Aortic Annulus Diameter 3.4 cm LA Ao Ratio MM 1.1 MV E Point Septal Separation 0.5 cm DOPPLER AV Peak Velocity 155.0 cm/s LVOT Peak Velocity 110.0 cm/s AV Area Cont Eq vti 2.2 cm squared AV Area Cont Eq pk 2.3 cm squared MV Area PHT 3.7 cm squared Mitral E to A Ratio 0.8 MV E' Velocity 47.0 cm/s Mitral E to MV E' Ratio 10.4 Mitral E to LV E' Lateral Ratio 8.9 Mitral E to LV E' Septal Ratio 12.8 TR Peak Velocity 225.3 cm/s TR Peak Gradient 20.3 mmHg TR Mean Velocity 168.2 cm/s TR Mean Gradient 12.6 mmHg TR Velocity Time Integral 55.6 cm TV Peak E Velocity 53.0 cm/s Right Atrial Pressure 3.0 mmHg Pulmonary Artery Systolic Pressu 23.3 mmHg PV Peak Velocity 83.0 cm/s RV Acceleration Time 0.2 s RV Ejection Time 0.3 s RV AcT/ET 0.5 FINDINGS Left Ventricle Normal left ventricular cavity size. Normal left ventricular systolic function. No regional wall motion abnormalities. Left ventricular ejection fraction is estimated at 60 %. Grade I/IV diastolic dysfunction (abnormal relaxation filling pattern), normal to mildly elevated filling pressures. Right Ventricle The right ventricle is normal in size and function. Right Atrium The right atrium is normal in size. Left Atrium The left atrium is normal in size. Mitral Valve Structurally normal mitral valve without significant stenosis or prolapse. There is no mitral regurgitation. Aortic Valve Moderate aortic valve calcification. No aortic valve stenosis. No aortic valve regurgitation. Tricuspid Valve Mild tricuspid valve regurgitation. Pulmonic Valve Structurally normal pulmonic valve without significant stenosis. There is no pulmonic regurgitation. Pericardium Normal pericardium without effusion. Aorta Normal ascending aorta dimension. CONCLUSIONS 1-Normal left ventricular cavity size. Normal left ventricular systolic function. No regional wall motion abnormalities. Left ventricular ejection fraction is estimated at 60 %. Grade I/IV diastolic dysfunction (abnormal relaxation filling pattern), normal to mildly elevated filling pressures. 2-Mild tricuspid valve regurgitation. 3-There is no pericardial effusion. 4-Pulmonary artery systolic pressure is within normal limits. 5-Right atrial pressure is around 5 mm of mercury. 6-There are no prior echocardiogram studies to compare. Dora Fung MD (Electronically Signed) Final Date: 18 April 2020 17:07 S
[2020-04-19] MEDS: vancomycin 1,000 MG in sodium chloride 0.9% 250 ML 250 MG IV ×2 (01:06→12:59)
[2020-04-19 03:53] VITALS: BP 133/71; PULSE 87; RESP 20; TEMP 37.1; O2SAT 93
[2020-04-19] MEDS: gabapentin 300 mg Capsule 600 MG PO ×2 (06:00→11:09)
[2020-04-19 07:53] VITALS: BP 118/66; PULSE 92; RESP 18; TEMP 37.3; O2SAT 95
[2020-04-19] MEDS: levothyroxine 112 mcg Tablet PO (09:45)
[2020-04-19] MEDS: levothyroxine 25 mcg Tablet PO (09:45)
[2020-04-19] MEDS: clopidogrel 75 mg Tablet PO (09:45)
--- NOTE | 2020-04-19 10:50 | PC.NURSE ---
Dressing change to right chest port access due to dressing peeling and causing blisters to right top one intact blister one ruptured blister clear drainage from blister, redness noted approximately 3cm in shape, skin prep applied before dressing.
[2020-04-19] MEDS: LORazepam 1 mg Tablet PO ×2 (11:09→23:21)
[2020-04-19 11:51] VITALS: BP 145/81; PULSE 95; RESP 18; TEMP 38; O2SAT 92
--- NOTE | 2020-04-19 15:15 | PC.NURSE ---
Patient had call light on states she fell in her room trying to go to bedside commode. states bumped head on IV pole. Patient found in bed , checked patient for injuries, head palpated zero injuries found. Dr Foy notified.
--- NOTE | 2020-04-19 15:32 | CTR_ITS ---
PROCEDURE INFORMATION: Exam: CT Head Without Contrast Exam date and time: 04/19/2020 10:30 PM Age: 74 years old Clinical indication: Injury or trauma; Blunt trauma (contusions or hematomas); Patient HX: Fall with blow to head. Currently denies any pain; Additional info: Patient states bumped head TECHNIQUE: Imaging protocol: Computed tomography of the head without contrast. Radiation optimization: All CT scans at this facility use at least one of these dose optimization techniques: automated exposure control; mA and/or kV adjustment per patient size (includes targeted exams where dose is matched to clinical indication); or iterative reconstruction. COMPARISON: CT head wo con* [id number] 04/15/2020 5:05 PM RADIATION DOSE METRICS: Total DLP (mGy-cm): 736.96 FINDINGS: Brain: There are moderate periventricular and subcortical lucencies consistent with chronic microvascular ischemic changes. The jones-white differentiation is maintained. No hemorrhage. No edema. Cerebral ventricles: No ventriculomegaly. Bones/joints: Unremarkable. No acute fracture. Paranasal sinuses: Visualized sinuses are unremarkable. No fluid levels. Mastoid air cells: Visualized mastoid air cells are well aerated. Orbits: Bilateral cataract surgery. Soft tissues: Unremarkable. CT/CT head wo con* [id number] IMPRESSION: No acute intracranial abnormality. Chronic microvascular ischemic changes. Radiation Dose CTDIVOL = (mGy): DLP = 736.96 (mGy-cm)
[2020-04-19 15:57] VITALS: BP 138/81; PULSE 102; RESP 18; TEMP 37.1; O2SAT 91
--- NOTE | 2020-04-19 16:33 | PM.PN ---
Subjective Subjective: Interval history: No new complaints today. However this afternoon patient was trying to get from the bed to commode and she had a fall. She hit her head against the IV pole. Denies any complains of chest pain dyspnea palpitations, cough or expectoration, abdominal pain nausea or vomiting. No loss of consciousness today. 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 RIDE OPERATOR: no focal neuro deficits Data : 04/18/20 05:08 04/18/20 05:08 Micro: Microbiology 04/18/20 05:02 Blood Culture - Preliminary Blood NEGATIVE TO DATE 04/18/20 05:08 Blood Culture - Preliminary Blood NEGATIVE TO DATE 04/15/20 15:59 Blood Culture - Preliminary Blood Staphylococcus epidermidis Coagulase negativ staphylococc A&P Assessment and plan (1) Coag negative Staphylococcus bacteremia: Status: Acute (2) Anemia: Status: Acute (3) Diabetes mellitus: Status: Acute (4) Malignant neoplasm of lung: Status: Acute (5) Chronic cystitis: Status: Acute Additional A&P Information 74-year-old female with past medical history of lung squamous cell carcinoma s/p chemoradiation , most recently carboplatin ~ one month ago, admitted on 04/13 with intractable nausea and vomiting which is currently improved. During course of admission Additionally developed fever to 101.1 with blood cx 4/4 postive for GPC, awaiting further identification #Fever Positive blood cx from 04/15 reported + 4/4 for coag negative staph, 2 species however 1 of which is consistently growing out of 4 bottles. repeat blood cx from 929 including port blood cultures remain negative thus far continues to spike daily fever of 101F even in the presence of clinical improvement. Suspect that fevers may be noninfectious in nature at this point as an extensive evaluation has not revealed any other persisting source of infection except for positive blood culture on 928 which has cleared. Patient states that fevers have been part of her initial presentation with lung cancer as well and even prior to admission she was running continuous fevers of up to 101 intermittently. Check echocardiogram to evaluate for endocarditis without any valvular vegetation. CT chest abdomen and pelvis without any overt source of deep infection. Lung mass and hilar adenopathy improving as of most recent CT, not currently on immunotherapy. UA not particularly concerning for UTI Underwent MRI of the brain without any evidence of metastatic lesions, less likely to be a central cause of fevers. Continue vancomycin for directed treatment of CoNS , plan for a total 14-day course from clearance of blood culture. For uncomplicated coag negative staph bacteremia. We will hold off on removing the port at this point as cultures cleared fairly quickly and port cultures remain negative thus far COVID rapid antigen was negative upon admission, no new changes noted on CT of the chest to suggest covert pneumonia # Nausea and vomiting. Currently resolved. MRI brain without any signs of malinant involvement # Anemia which is chronic secondary to probably cancer. Currently stable. We will continue monitoring. No active bleeding at any site. # h/o migraines, headche better controlled now # History of hypertension. Currently well controlled #History of fall today, mechanical, CT head negative for any acute intracranial abnormalities. #Abnormal TSH. Normal free T4 level #Diabetes. Insulin sliding scale #The patient takes Plavix. She does not endorse history of coronary artery disease or stroke. For now continue Plavix. CODE STATUS. Full code The plan of care was discussed with the patient. She verbalized understanding and agreement. Attestations Medical Necessity Statement*: , Arranging for IV vancomycin infusion at home for the next 14 days, CT head for fall anticipate discharge in the upcoming 24 hours Coding Level of Care Code Acute Dermatology Physician Assistant for eldon Quick Diagnoses Coag negative Staphylococcus bacteremia R78.81; B95.7 Anemia D64.9 Diabetes mellitus E11.9 Malignant neoplasm of lung C34.90 Chronic cystitis N30.20
[2020-04-19 19:35] VITALS: BP 132/78; PULSE 96; RESP 18; TEMP 37.2; O2SAT 99
[2020-04-19] MEDS: gabapentin 400 mg Capsule 1200 MG PO (21:43)
[2020-04-19] MEDS: trazodone 50 mg Tablet PO (21:43)
[2020-04-19 23:28] VITALS: BP 143/83; PULSE 110; RESP 18; TEMP 37.3; O2SAT 93
[2020-04-20] VITALS (7 sets, daily range): BP systolic 112–149; BP diastolic 69–89; PULSE 103–121; RESP 18; TEMP 36.9–38.8; O2SAT 91–94
[2020-04-20] MEDS: vancomycin 1,000 MG in sodium chloride 0.9% 250 ML 250 MG IV (01:18)
[2020-04-20] MEDS: gabapentin 400 mg Capsule 1200 MG PO (06:23)
--- NOTE | 2020-04-20 06:44 | PC.NURSE ---
SHIFT SUMMARY Rested well tonight. Had CT head done. Has denied pain or discomfort. Incont with urgency with voidings. Says is nothing new. Brief changed as needed.
[2020-04-20] MEDS: gabapentin 300 mg Capsule 600 MG PO ×2 (08:49→11:41)
[2020-04-20] MEDS: levothyroxine 112 mcg Tablet PO (08:50)
[2020-04-20] MEDS: levothyroxine 25 mcg Tablet PO (08:50)
[2020-04-20] MEDS: clopidogrel 75 mg Tablet PO (08:51)
[2020-04-20] MEDS: LORazepam 1 mg Tablet PO (09:10)
[2020-04-20 09:21] LABS: Basophils % 0.3 %; Eosinophils # 0.4 10^3/uL (0.0-0.8); Eosinophils % 6.2 %; Hematocrit 30.9 % (37.0-47.0); Hemoglobin 9.9 g/dL (11.5-15.3); Lymphocytes # 0.6 10^3/uL (0.8-4.8); Lymphocytes % 8.7 %; Mean Corpuscular Hemoglobin 29.8 pg (28.0-34.0); Mean Corpuscular Volume 93.1 fL (81-99); Mean Platelet Volume 9.7 fL (7.4-10.4); Monocytes # 0.9 10^3/uL (0.2-0.9); Monocytes % 13.9 %; Neutrophils # 4.51 10^3/uL (1.8-7.7); Neutrophils % 70.3 %; Nucleated Red Blood Cells % 0 %; Platelet Count 241 10^3/cmm (130-400); Red Blood Count 3.32 10^6/uL (4.1-5.3); Red Cell Distribution Width 15.6 % (12.1-15.1); White Blood Count 6.4 10^3/uL (4.0-10.0)
--- NOTE | 2020-04-20 09:39 | PM.DCS ---
Discharge Providers Date of Admission: 04/15/20 15:48 Date of Discharge: April 20, 2020 Attending Provider at Admission: Jax Watkins Attending Provider at Discharge: Olga Foy MD Primary Care Provider: Burak Yi Diagnoses at Discharge Discharge Diagnosis (1) Coag negative Staphylococcus bacteremia: Status: Acute (2) Anemia: Status: Acute (3) Diabetes mellitus: Status: Acute (4) Malignant neoplasm of lung: Status: Acute (5) Chronic cystitis: Status: Acute Reason for Visit Reason for Visit: N/V x 4 days Hospital Course Discharge Summary: 74-year-old female with past medical history of lung squamous cell carcinoma s/p chemoradiation , most recently carboplatin ~ one month ago, admitted on 04/13 with intractable nausea and vomiting which is currently improved. During course of admission Additionally developed fever to 101.1 with blood cx 4/4 postive for GPC, dientified as CoNS. Hospital course as below: #Fever Positive blood cx from 04/15 reported + 4/4 for coag negative staph, 2 species however 1 of which is consistently growing out of 4 bottles. repeat blood cx from 929 including port blood cultures remain negative thus far continues to spike daily fever of 101F even in the presence of clinical improvement. Suspect that fevers may be noninfectious in nature at this point as an extensive evaluation has not revealed any other persisting source of infection except for positive blood culture on 928 which has cleared. Patient states that fevers have been part of her initial presentation with lung cancer as well and even prior to admission she was running continuous fevers of up to 101 intermittently. echocardiogram to evaluate for endocarditis without any valvular vegetation. CT chest abdomen and pelvis without any overt source of deep infection. Lung mass and hilar adenopathy improving as of most recent CT, not currently on immunotherapy. UA not particularly concerning for UTI Underwent MRI of the brain without any evidence of metastatic lesions, less likely to be a central cause of fevers. Continue vancomycin for directed treatment of CoNS , plan for a total 14-day course from clearance of blood culture. For uncomplicated coag negative staph bacteremia. We will hold off on removing the port at this point as cultures cleared fairly quickly and port cultures remain negative thus far COVID rapid antigen was negative upon admission, no new changes noted on CT of the chest to suggest covert pneumonia TSH WNL # Nausea and vomiting. Currently resolved. MRI brain without any signs of malinant involvement. Ct abdomen unremarkable Physical Exam Narrative: EXAM NARRATIVE: GEN: Awake, alert and oriented, no acute distress CVS: S1S2 N RS: CTA B/L Abd: Soft, nt/nd , bs+ WASHERY ENGINEER: no focal neuro deficits Discharge Data Data Completed and Pending: Completed Studies During Hospitalization Category Date Time Status CT chest abd pel w con* Urgent Cat Scan 04/13/20 17:[address] head wo con* 7 0450 Routine Cat Scan 04/19/20 15:[address] head wo con* 7 0450 Stat Cat Scan 04/15/20 15:29 Completed XR chest 1V praneeth ble 83403 Stat Exams 04/13/20 13:42 Completed MR head wo/w con 88152 Urgent MRI 04/17/20 10:15 Completed CV echo complete* [id number] Routine Ultrasound 04/18/20 22:47 Completed Pending at discharge Category Date Time Status Blood Culture AM LABS Lab 04/18/20 05:08 Results Blood Culture Sta t Lab 04/15/20 15:55 Results Blood Culture Sta t Lab 04/16/20 12:55 Results Comprehensive Met abolic Panel Routi ne Lab 04/20/20 09:05 Received T3 Free Routine Lab 04/20/20 09:05 Received Vancomycin Trough Routine Lab 04/20/20 11:00 Ordered Labs from last 24 hours 04/20/20 04/20/20 09:05 09:05 WBC 6.4 RBC 3.32 L Hgb 9.9 L Hct 30.9 L MCV 93.1 MCH 29.8 MCHC 32.0 RDW 15.6 H Plt Count 241 MPV 9.7 Neut % (Auto) 70.3 Lymph % (Auto) 8.7 Ballard % (Auto) 13.9 Eos % (Auto) 6.2 Baso % (Auto) 0.3 Neut # (Auto) 4.51 Lymph # (Auto) 0.6 L Ballard # (Auto) 0.9 Eos # (Auto) 0.4 Baso # (Auto) 0.0 Nucleated RBC % (a uto) 0 Nucleated RBCs # 0.0 Sodium Pending Potassium Pending Chloride Pending Carbon Dioxide Pending Anion Gap Pending BUN Pending Creatinine Pending GFR Calculation Pending Glucose Pending Calculated Osmolal ity Pending Calcium Pending Total Bilirubin Pending AST Pending ALT Pending Alkaline Phosphata se Pending Total Protein Pending Albumin Pending Globulin Pending Free T3 Pending Vitals: Last Vital Signs Temp 98.4 F 04/20/20 07:46 Pulse 103 H 04/20/20 07:46 Resp 18 04/20/20 07:46 BP 149/89 04/20/20 07:46 Pulse Ox 93 04/20/20 07:46 Discharge Plan Discharge Patient Disposition: Home Health Service Condition: Stable Prescriptions: New vancomycin in 0.9 % sodium chl 1 gram/200 mL piggyback 1 gm IVP Q12H 14 Days Qty: 5600 RF: 0 Continued clopidogrel [Plavix] 75 mg tablet 75 mg PO DAILY RF: 0 Hold Instructions: Resume on 01/01/20. alprazolam 1 mg tablet 1 mg PO BID PRN (Reason: anxiety) RF: 0 escitalopram oxalate [Lexapro] 20 mg tablet 20 mg PO DAILY RF: 0 levothyroxine 137 mcg capsule 137 mcg PO DAILY RF: 0 hydrocodone-acetaminophen 10-325 mg tablet 1 tab PO Q4H PRN (Reason: Pain) RF: 0 lovastatin 20 mg tablet 20 mg PO DAILY RF: 0 metformin 500 mg tablet 500 mg PO BID RF: 0 trazodone 50 mg tablet 50 mg PO DAILY RF: 0 Toviaz 8 mg tablet extended release 24 hr 8 mg PO DAILY Qty: 30 RF: 6 Lasix 20 mg Tablet 20 mg PO BID RF: 0 gabapentin 600 mg Tablet See Rx Instructions .ROUTE .COMPLEX RF: 0 Discharge Orders: Discharge Order (Routine); Ordered 04/20/20 Ordered By: Olga Foy Other Ambulatory Orders: Vancomycin Trough (WEEKLY) Timeframe: 20200424 Location: Determined by Patient Ordered By: Olga Foy Vancomycin Trough (WEEKLY) Timeframe: 20200425 Location: Determined by Patient Ordered By: Olga Foy DME: [employer] (Order) Location: None Selected Ordered By: Olga Foy Referrals: [facility]) [Other] [facility] [Outside] Olga Foy MD [Hospitalist] - 05/07/20 3:15 pm ( ID clinic ) Patient Instructions: Vancomycin (Injection), Vomiting - Adult Discharge Date/Time: 04/20/20 16:50 Discharge Attestations Time Spent in Discharge Care*: greater than 30 min Specific Discharge Activities: Specific discharge activities: educating patient, educating and/or supporting family/caregiver and discussing with child support case officer/social workers/dc planners Quality Metrics Clinical Quality Measures During this hospital stay, did patient experience: None Coding Level of Care Code Acute Delivery Department Supervisor for Chg Fwd Diagnoses Coag negative Staphylococcus bacteremia R78.81; B95.7 Anemia D64.9 Diabetes mellitus E11.9 Malignant neoplasm of lung C34.90 Chronic cystitis N30.20
[2020-04-20 09:46] LABS: Alanine Aminotransferase < 5 U/L (0-33); Alkaline Phosphatase 53 IU/L (35-105); Anion Gap 17.1 (5-19); Aspartate Amino Transferase 13 U/L (0-32); Blood Urea Nitrogen 7 mg/dL (8-23); Calcium 9.1 mg/dL (8.5-10.5); Carbon Dioxide 22 mmol/L (22-29); Chloride 102 mmol/L (98-107); Globulin 3.3 g/dL (1.3-4.6); Glucose 111 mg/dL (65-115); Osmolality Calculated 285 mOsm/kg (285-295); Potassium 3.1 mmol/L (3.5-5.1); Sodium 138 mmol/L (136-145); T3 Free 1.5 PG/ML (2.0-4.4); Total Bilirubin 0.3 mg/dL (0.15-1.2); Total Protein 6.3 g/dL (6.6-8.7)
[2020-04-20 12:46] LABS: Vancomycin Trough 20.2 ug/mL (10-15)
--- NOTE | 2020-04-20 12:50 | PC.SOCIAL ---
IMM Updated Pg 2 IMM updated & provided a copy to pt. No questions voiced. Signed, dated, & timed copy in chart.
[2020-04-20] MEDS: TRAMadol 50 mg Tablet PO (14:18)
--- NOTE | 2020-04-20 16:25 | PC.NURSE ---
Temp rechecked, 99.4 oral, patient room extremely hot. discharge instructions given to patient and son, voiced full understanding. Port deacessed by Kanwal BARTLETT
== END 2020-04-20 16:50 | disposition home health service (06) | DRG 872 ==
LOC: ER 13:35 → MEDSURG 17:43
PROVIDERS: Family Medicine; Admitting Provider Internal Medicine; PCP Family Medicine; Visit Provider Student in an Organized Health Care Education/Training Program
DX: R78.81 Bacteremia (principal); C34.90 Malignant neoplasm of unspecified part of unspecified bronchus or lung; E87.1 Hypo-osmolality and hyponatremia; E86.0 Dehydration; D50.0 Iron deficiency anemia secondary to blood loss (chronic); N30.20 Other chronic cystitis without hematuria; E11.9 Type 2 diabetes mellitus without complications; Z92.3 Personal history of irradiation; Z20.828 Contact with and (suspected) exposure to other viral communicable diseases; Z79.84 Long term (current) use of oral hypoglycemic drugs; Z79.02 Long term (current) use of antithrombotics/antiplatelets
CPT/HCPCS: 12345; 36415; 36416; 36591; 70450; 70553; 71045; 71260; 74177; 80048; 80053; 80069; 80202; 81001; 81003; 82550; 82962; 83605; 83735; 84100; 84439; 84443; 84481; 85025; 87040; 87077; 87186; 87205; 87426; 87493; 93005; 93306; 94664; 96375; 99284; A9579; G0378; J0743; J1630; J1642; J1885; J2060; J2270; J2405; J3370; J3480; J7030; J7050; Q9967

== ENCOUNTER 2020-04-24 18:46 | Inpatient (IN) | payer MEDICARE, OTHER, SELFPAY ==
[2020-04-24 18:52] VITALS: BP 98/69; PULSE 119; RESP 20; TEMP 36.8; O2SAT 91; BMI 24.7
--- NOTE | 2020-04-24 19:03 | ECG_ITS ---
[facility] Test Date: 2020-04-24 Pat Name: Amanda ALONZO Department: Room: Gender: Female Core Winding Operator: : 1945 Requested By: Michael Ross Order Number: [id number] Eyal MD: Alexis Sullivan M.D. Measurements Intervals [place] Rate: 113 P: 44 TN: 145 QRS: -16 QRSD: 86 T: 65 QT: 341 QTc: 468 Interpretive Statements SINUS TACHYCARDIA ABNORMAL RHYTHM ECG Compared to ECG 04/13/2020 15:53:00 Sinus rhythm no longer present First degree AV block no longer present Electronically Signed On 04-24-2020 21:35:13 CDT by Alexis Sullivan M.D. [id number]
--- NOTE | 2020-04-24 19:29 | W.ED.GENADLT ---
HPI - General Adult General: Chief complaint: General Medical Stated complaint: KIDNEYS Time Seen by Provider: 04/24/20 18:57 Source: patient Mode of arrival: ambulatory Limitations: no limitations History of Present Illness: HPI narrative: Lawanda 4-year-old female who was recently discharged from the hospital here. Patient was discharged on IV vancomycin Dr. Cherry had been following that. Patient had a Vanco trough drawn today and it was high pain was also known to be an acute kidney injury as well likely vancomycin induced. Patient has had some nausea and weakness. She denies any vomiting. She states she still urinating. Patient was sent up here by Dr. Cherry to recheck her lab work. Associated symptoms: Deny chest pain, dyspnea, headache(s), nausea, rash or vomiting Review of Systems Const: Denies: fever(s), chills, body aches or change in appetite Eyes: Denies: blurry vision or eye discomfort ENMT: Denies: throat pain or dental pain Card: Denies: chest pain Resp: Denies: dyspnea GI: Denies: abdominal pain, nausea, vomiting or diarrhea : Denies: dysuria Musc: Reports: muscle weakness Skin/Breast: Denies: rash Neuro: Denies: headache(s) Psych: Denies: depression Chester/Lymph: Denies: easy bruising All/Imm: Denies: urticaria PFSH ED PFSH: Medical History (Updated 04/24/20 @ 20:45 by Michael Ross MD) Chronic cystitis Diabetes Gross hematuria H/O fracture of femur has an artifical femur left leg Malignant neoplasm of lung Urgency incontinence Surgical History H/O oral surgery H/O pneumonectomy H/O: hysterectomy S/P cataract surgery Family History Mother , CVA-79 No problems noted. Father , 69-lung cancer Cancer Denies family history of Anesthesia complication Bleeding disorder Social History Smoking and tobacco status: never smoked Alcohol intake: never Adopted: No Caregiver/support person: No Lives independently: No Household members: family Marital status: / Current occupational status: retired Physical Exam Const: COMMON NORMALS: no acute distress, patient oriented x3 and healthy appearing HENMT: COMMON NORMALS: normocephalic and atraumatic HEAD & SCALP: normocephalic and atraumatic Eye: COMMON NORMALS: Equal, round and reactive pupils present and EOMs intact bilaterally PUPIL: Yes Equal, round and reactive pupils present Neck/C-Spine: COMMON NORMALS: full ROM and supple Chest: COMMONS NORMALS: normal inspection of the chest and normal palpation of entire chest wall Resp: COMMON NORMALS: normal respiratory effort, No retractions, No use of accessory muscles and clear to auscultation bilaterally AUSCULTATION: clear to auscultation bilaterally Cardio: COMMON NORMALS: regular rhythm and No murmurs present (Cardio) RATE: tachycardic RHYTHM: regular rhythm GI: COMMON NORMALS: Normal to inspection, nondistended, normoactive bowel sounds present, Soft to palpation, non-tender and no masses PALPATION: Yes Soft to palpation Extremity: COMMON NORMALS: normal to inspection and full ROM Neuro: COMMON NORMALS: patient oriented x3, moves all extremities and no focal motor deficits Psych: COMMON NORMALS: mental status grossly normal, Normal thought process present and cooperative THOUGHT PROCESS: Normal thought process present Skin: COMMON NORMALS: no rashes or lesions noted and no wounds GENERAL SKIN EXAM: no rashes or lesions noted Course Vital Signs: Vital signs: Vital Signs Temperature 98.2 F 04/24/20 18:52 Pulse Rate 119 H 04/24/20 18:52 Respiratory Rate 20 H 04/24/20 18:52 Blood Pressure 98/69 04/24/20 18:52 Pulse Oximetry 91 04/24/20 18:52 MDM - General Adult MDM Narrative: Medical decision making narrative: Patient presents here with acute kidney injury. Patient's been treated with IV vancomycin outpatient and has a very high vancomycin trough likely vancomycin induced nephrotoxicity. Patient's creatinine here is 3 8. She states she has been making urine. She is otherwise well-appearing here. Spoke to hospitalist will admit. Lab Data: Labs: Lab Results 04/24/20 04/24/20 04/24/20 Range/Units 19:26 19:26 19:26 WBC 9.0 (4.0-10.0) 10^3/ uL RBC 3.95 L (4.1-5.3) 10^6/u L Hgb 11.7 (11.5-15.3) g/dL Hct 37.7 (37.0-47.0) % MCV 95.4 (81-99) fL MCH 29.6 (28.0-34.0) pg MCHC 31.0 (30.0-36.0) g/dL RDW 15.9 H (12.1-15.1) % Plt Count 240 (130-400) 10^3/c mm MPV 10.7 H (7.4-10.4) fL Neut % (Auto) 78.8 % Lymph % (Auto) 4.5 % Yancey % (Auto) 8.5 % Eos % (Auto) 7.2 % Baso % (Auto) 0.4 % Neut # (Auto) 7.06 (1.8-7.7) 10^3/u L Lymph # (Auto) 0.4 L (0.8-4.8) 10^3/u L Yancey # (Auto) 0.8 (0.2-0.9) 10^3/u L Eos # (Auto) 0.6 (0.0-0.8) 10^3/u L Baso # (Auto) 0.0 (0.0-0.1) 10^3/u L Nucleated RBC % (a uto) 0 % Nucleated RBCs # 0.0 /100WBC Sodium 132 L (136-145) mmol/L Potassium 3.6 (3.5-5.1) mmol/L Chloride 89 L (98-107) mmol/L Carbon Dioxide 22 (22-29) mmol/L Anion Gap 24.6 H (5-19) BUN 44 H (8-23) mg/dL Creatinine 3.8 H (0.5-0.9) mg/dL GFR Calculation Not Reportable Glucose 151 H (65-115) mg/dL Calculated Osmolal ity 288 (285-295) mOsm/k g Lactate 2.1 (0.5-2.2) mmol/L Calcium 9.8 (8.5-10.5) mg/dL Total Bilirubin 0.3 (0.15-1.2) mg/dL AST 13 (0-32) U/L ALT < 5 (0-33) U/L Alkaline Phosphata se 63 (35-105) IU/L Total Protein 7.8 (6.6-8.7) g/dL Albumin 3.4 L (3.5-5.2) g/dL Globulin 4.4 (1.3-4.6) g/dL Urine Color (Yellow) Urine Appearance (CLEAR) Urine pH (5-7) Ur Specific Gravit y (1.005-1.030) Urine Protein (Negative) Urine Glucose (UA) (Normal) Urine Ketones (Negative) Urine Blood (Negative) Urine Nitrate (Negative) Urine Bilirubin (Negative) Urine Urobilinogen (Negative) mg/dL Ur Leukocyte Ladan ase (Negative) Urine RBC (0-2) /hpf Urine WBC (0-5) /hpf Ur Squamous Epith Cells (0-5) /hpf Amorphous Sediment /hpf Urine Bacteria (NONE) /hpf Hyaline Casts /lpf Vancomycin Trough (10-15) ug/mL 04/24/20 04/24/20 Range/Units 19:26 20:09 WBC (4.0-10.0) 10^3/ uL RBC (4.1-5.3) 10^6/u L Hgb (11.5-15.3) g/dL Hct (37.0-47.0) % MCV (81-99) fL MCH (28.0-34.0) pg MCHC (30.0-36.0) g/dL RDW (12.1-15.1) % Plt Count (130-400) 10^3/c mm MPV (7.4-10.4) fL Neut % (Auto) % Lymph % (Auto) % Yancey % (Auto) % Eos % (Auto) % Baso % (Auto) % Neut # (Auto) (1.8-7.7) 10^3/u L Lymph # (Auto) (0.8-4.8) 10^3/u L Yancey # (Auto) (0.2-0.9) 10^3/u L Eos # (Auto) (0.0-0.8) 10^3/u L Baso # (Auto) (0.0-0.1) 10^3/u L Nucleated RBC % (a uto) % Nucleated RBCs # /100WBC Sodium (136-145) mmol/L Potassium (3.5-5.1) mmol/L Chloride (98-107) mmol/L Carbon Dioxide (22-29) mmol/L Anion Gap (5-19) BUN (8-23) mg/dL Creatinine (0.5-0.9) mg/dL GFR Calculation Glucose (65-115) mg/dL Calculated Osmolal ity (285-295) mOsm/k g Lactate (0.5-2.2) mmol/L Calcium (8.5-10.5) mg/dL Total Bilirubin (0.15-1.2) mg/dL AST (0-32) U/L ALT (0-33) U/L Alkaline Phosphata se (35-105) IU/L Total Protein (6.6-8.7) g/dL Albumin (3.5-5.2) g/dL Globulin (1.3-4.6) g/dL Urine Color Yellow (Yellow) Urine Appearance Cloudy (CLEAR) Urine pH 5 (5-7) Ur Specific Gravit y 1.020 (1.005-1.030) Urine Protein Neg (Negative) Urine Glucose (UA) Norm (Normal) Urine Ketones Negative (Negative) Urine Blood Neg (Negative) Urine Nitrate Negative (Negative) Urine Bilirubin Neg (Negative) Urine Urobilinogen Norm (Negative) mg/dL Ur Leukocyte Ladan ase Negative (Negative) Urine RBC 0-4 H (0-2) /hpf Urine WBC 0-4 H (0-5) /hpf Ur Squamous Epith Cells 0-4 H (0-5) /hpf Amorphous Sediment 1+ /hpf Urine Bacteria 1+ H (NONE) /hpf Hyaline Casts 0-4 H /lpf Vancomycin Trough 70.1 H* (10-15) ug/mL EKG Data^: EKG 1: Attestation: I personally reviewed and interpreted this EKG as follows: EKG interpretation date: 04/24/20 EKG interpretation time: 19:09 Interpretation: sinus tach hr 113 qrs 86 qtc 408 Discharge Plan Discharge Patient Disposition: Admitted As Inpatient Clinical Impression: Acute kidney injury Condition: Stable Referrals: Burak Yi [Primary Care Provider] - Coding Level of Care Code ED Ambulatory Nurse for Chg Fwd Exam Comprehensive
[2020-04-24 19:34] LABS: Basophils % 0.4 %; Eosinophils # 0.6 10^3/uL (0.0-0.8); Eosinophils % 7.2 %; Hematocrit 37.7 % (37.0-47.0); Hemoglobin 11.7 g/dL (11.5-15.3); Lymphocytes # 0.4 10^3/uL (0.8-4.8); Lymphocytes % 4.5 %; Mean Corpuscular Hemoglobin 29.6 pg (28.0-34.0); Mean Corpuscular Volume 95.4 fL (81-99); Mean Platelet Volume 10.7 fL (7.4-10.4); Monocytes # 0.8 10^3/uL (0.2-0.9); Monocytes % 8.5 %; Neutrophils # 7.06 10^3/uL (1.8-7.7); Neutrophils % 78.8 %; Nucleated Red Blood Cells % 0 %; Platelet Count 240 10^3/cmm (130-400); Red Blood Count 3.95 10^6/uL (4.1-5.3); Red Cell Distribution Width 15.9 % (12.1-15.1)
[2020-04-24 19:56] LABS: Lactate (Lactic Acid level) 2.1 mmol/L (0.5-2.2)
[2020-04-24 19:58] LABS: Alanine Aminotransferase < 5 U/L (0-33); Albumin Level 3.4 g/dL (3.5-5.2); Alkaline Phosphatase 63 IU/L (35-105); Anion Gap 24.6 (5-19); Aspartate Amino Transferase 13 U/L (0-32); Blood Urea Nitrogen 44 mg/dL (8-23); Calcium 9.8 mg/dL (8.5-10.5); Carbon Dioxide 22 mmol/L (22-29); Chloride 89 mmol/L (98-107); Globulin 4.4 g/dL (1.3-4.6); Glucose 151 mg/dL (65-115); Osmolality Calculated 288 mOsm/kg (285-295); Potassium 3.6 mmol/L (3.5-5.1); Sodium 132 mmol/L (136-145); Total Bilirubin 0.3 mg/dL (0.15-1.2); Total Protein 7.8 g/dL (6.6-8.7)
[2020-04-24 20:09] LABS: Vancomycin Trough 70.1 ug/mL (10-15)
[2020-04-24] MEDS: sodium chloride 0.9% 1,000 ML 999 ML IV (20:21)
[2020-04-24] MEDS: ondansetron 2 mg/ML SDV 2 mL 4 MG IVP (20:21)
--- NOTE | 2020-04-24 20:29 | PC.NURSE ---
fluids held until pt able to use restroom per pt request
[2020-04-24 20:34] LABS: Add Urine Microscopic? YES; Bacteria Urine 1+ /hpf; Bilirubin Urine Neg (Negative); Blood Urine Neg (Negative); Glucose Urine UA Norm (Normal); Ketones Urine Negative (Negative); Leukocyte Esterase Urine Negative (Negative); Nitrate Urine Negative (Negative); Protein Urine Neg (Negative); RBC Urine 0-4 /hpf (0-2); Squamous Epithelial Cell Urine 0-4 /hpf (0-5); Urine Appearance Cloudy (CLEAR); Urine Color Yellow (Yellow); Urobilinogen Urine Norm (Negative); WBC Urine 0-4 /hpf (0-5); pH Urine 5 (5-7)
[2020-04-24 20:35] LABS: Amorphous Sediment Urine 1+ /hpf; Hyaline Casts Urine 0-4 /lpf
--- NOTE | 2020-04-24 21:48 | P.CONIM_ITS ---
Providers/Reason For Consult Consulting Physican/Specialty*: antoinette scott md/ telenephrology Reason for Consult*: LISA/ vancomycin toxicity Attending Physician: Dinesh Frankel MD Primary Care Provider: Burak Yi History of Present Illness History of Present Illness Amanda ALONZO is a 74 year old female with past medical history NIDDM, HTN, obesity, lung squamous cell carcinoma s/p chemoradiation , most recently carboplatin in February 2020. She was ecently admitted on 04/13 with intractable nausea and vomiting. During that admission she was bacteremic wiith blood cx 10/20 postive for GPC, CoNS. She was treated w/ iv vanco and d/c on 04-20-20 on iv vancomycin. she was sent to ER today for KI and high vancomycin level. on apr 18 vanco level was 14, apr 20 vanco level 20, today level is 70. cr on 04-20-20 was 0.6, cr now is 3.8 mg/dl. During last admission, she had an echocardiogram to evaluate for endocarditis without any valvular vegetation. CT chest abdomen and pelvis with contrast was on 04/13- thelma hydronephrosis. Since d/c on 04-20-20- pt c/o Nausea and vomiting. she feels weak, dysuria, and not eating well. she is not sure if she took NSAID's Review of Systems General: Reports: 10 or more systems reviewed and unremarkable except in HPI and below Narrative: weak, nausea, lethargic, vomiting. no fevers, + headaches, no visual changes, no cp, no sob, no leg pains. she took her meds at home Meds/Allergies Home Medications and Allergies Home Medications Medication Instructions Recorded Confirmed Last Taken Type alprazolam 1 mg tablet 1 mg PO BID PRN 08/21/19 04/13/20 12/25/19 History clopidogrel 75 mg tablet 75 mg PO DAILY 08/21/19 04/13/20 11/17/19 History escitalopram oxalate 20 mg tablet 20 mg PO DAILY tab 08/21/19 04/13/20 12/25/19 20:00 History hydrocodone 10 mg-acetaminophen 1 tab PO Q4H PRN tab 08/21/19 04/13/20 12/26/19 05:00 History 325 mg tablet levothyroxine 137 mcg capsule 137 mcg PO DAILY 08/21/19 04/13/2020 20:00 History lovastatin 20 mg tablet 20 mg PO DAILY 08/21/19 04/13/20 12/25/19 20:00 History metformin 500 mg tablet 500 mg PO BID 08/21/19 04/13/20 12/25/19 20:00 History trazodone 50 mg tablet 50 mg PO DAILY 08/21/19 04/13/20 12/25/19 20:00 History fesoterodine 8 mg tablet,extended 8 mg PO DAILY #30 tab 03/13/20 04/13/20 Unknown Rx release 24 hr Lasix 20 mg PO BID 04/13/20 04/13/20 Unknown History gabapentin See Rx Instructions .ROUTE .COMPLEX 04/13/20 04/13/20 Unknown History vancomycin in 0.9 % sodium chl 1 gm IVP Q12H 14 Days #5600 ml 04/20/20 Unknown Rx Allergies Allergy/AdvReac Type Severity Reaction Status Date / Time adhesive tape Allergy BLISTERS Verified 01/26/20 10:01 citalopram [From Celexa] Allergy NA Verified 01/26/20 10:01 duloxetine [From Cymbalta] Allergy NA Verified 01/26/20 10:01 PFSH Acute PFSH: Medical History (Updated 04/24/20 @ 20:45 by Michael Ross MD) Chronic cystitis Diabetes Gross hematuria H/O fracture of femur has an artifical femur left leg Malignant neoplasm of lung Urgency incontinence Surgical History H/O oral surgery H/O pneumonectomy H/O: hysterectomy S/P cataract surgery Family History Mother , CVA-79 No problems noted. Father , 69-lung cancer Cancer Denies family history of Anesthesia complication Bleeding disorder Social History Smoking and tobacco status: never smoked Alcohol intake: never Adopted: No Caregiver/support person: No Lives independently: No Household members: family Marital status: / Current occupational status: retired Vitals/I&O/Wt Last Vital Signs Temp 98.2 F 04/24/20 18:52 Pulse 119 H 04/24/20 18:52 Resp 20 H 04/24/20 18:52 BP 98/69 04/24/20 18:52 Pulse Ox 91 04/24/20 18:52 Weight last 48 hrs Weight 67.585 kg Physical Exam Narrative: EXAM NARRATIVE: uncomfortable in bed vs noted- tachycardic heent- nc/at, eomi, anicteric neck- supple lungs clear heart- reg, tachycardic, +s1, s2 abd soft, nt, nd, +BS ext no edema neuro- a,ao x 2+ pulses + b/l A&P Additional A&P Information 74 yr old female h/o lung ca, NIDDM, cystitis in january 2020, chemo in february 2020 w/ cisplatin, recent staph epidermiditis bacteremia and d/c on apr 20 on lasix, metfirmin, iv vnco- not sure if taking NSAID's. pt here w/ LISA and vanco toxicity. 1. LISA- d dx is a. vanco toxicity b. pre-renal- check urine lytes c. ATN d. rhabdo- check ck recs- renal us, ivf, urine studies -monitor chem 7, uop -check abg -lactate only 2 -NO METFORMIN, NSAID'S, FLEETS ENEMAS, VANCO -DOSE ALL MEDS FOR CR CL < 10 2. vanco toxicity- monitor w/ ivf -if vanco level does not improve- may need dialysis soon. discussed w/ pt and . they both understand risks/ benefits, and consent if needed. 3. hyponatremia- from prerenal , lisa- check ur lytes -monitor w/ ivf discussed w/ hospitalist Consult Attestations Medical Necessity Statement: lisa Time Spent in Patient Care: Greater than 35 minutes Coding Level of Care Code Acute Summer Child Caregiver for Chg Abdelrahman
[2020-04-24 21:49] VITALS: BP 139/85; PULSE 84; RESP 18; O2SAT 97
--- NOTE | 2020-04-24 22:19 | P.HP_ITS ---
Providers/Chief Complaint Admitting Physician: Dinesh Frankel MD Primary Care Provider: Burak Yi Chief Complaint: KIDNEYS History of Present Illness Amanda ALONZO is a 74 year old female with a past medical history of squamous cell carcinoma status post chemoradiation, seeing Dr. Berger and radiation oncologist, chronic cystitis managed by Dr. Hoffmann, [id number] type 2 diabetes mellitus, hypothyroidism, hypertension, anxiety depression, recent hospital discharge with fevers with gram-positive bacteremia on vancomycin for 14 days for COLORER MACHINE directed treatment who presents to [facility] due to concerns for acute renal failure and high vancomycin trough. Patient was recently discharged in the hospital, has been doing well since her hospital discharge, tells me that she always has low-grade fevers, typically 99, nothing greater than 101.3, no cough, no chills, no shortness of breath, no chest pain, no lightheadedness, no dizziness, no headache, no blurry vision, no known exposure to COVID-19, no recent travel, wears a facemask, no abdominal pain, no diarrhea, has chronic dysuria. Patient is on vancomycin, managed through home health care agency, vancomycin trough this morning was 50 before vancomycin dose, so patient was told to come to the emergency room. Patient states that she is feeling fine, has been feeling more fatigued and tired recently, intermittent episodes of nausea beyond that she does not have any other complaints. Her at bedside does tell me that she has dementia, and she does not typically complain of much. Review of Systems Const: Denies: fever(s), chills, fatigue or malaise Eyes: Denies: change in vision or blurry vision ENMT: Denies: nasal congestion Resp: Denies: dyspnea, productive cough, non-productive cough or wheezing GI: Denies: abdominal pain, nausea, vomiting, hematemesis, diarrhea, constipation, hematochezia or melena : Denies: flank pain, dysuria or urinary frequency Musc: Denies: neck pain or back pain Skin/Breast: Denies: rash Neuro: Denies: headache(s), dizziness or vertigo Psych: Denies: anxiety or depression Endo: Denies: polyuria or polydipsia Medications/Allergies Home Medications Medication Instructions Recorded Confirmed Last Taken Type alprazolam 1 mg tablet 1 mg PO BID PRN 08/21/19 04/13/20 12/25/19 History clopidogrel 75 mg tablet 75 mg PO DAILY 08/21/19 04/13/20 11/17/19 History escitalopram oxalate 20 mg tablet 20 mg PO DAILY tab 08/21/19 04/13/20 12/25/19 20:00 History hydrocodone 10 mg-acetaminophen 1 tab PO Q4H PRN tab 08/21/19 04/13/20 12/26/19 05:00 History 325 mg tablet levothyroxine 137 mcg capsule 137 mcg PO DAILY 08/21/19 04/13/20 12/25/19 20:00 History lovastatin 20 mg tablet 20 mg PO DAILY 08/21/19 04/13/20 12/25/19 20:00 History metformin 500 mg tablet 500 mg PO BID 08/21/19 04/13/20 12/25/19 20:00 History trazodone 50 mg tablet 50 mg PO DAILY 08/21/19 04/13/20 12/25/19 20:00 History fesoterodine 8 mg tablet,extended 8 mg PO DAILY #30 tab 03/13/20 04/13/20 Unknown Rx release 24 hr Lasix 20 mg PO BID 04/13/20 04/13/20 Unknown History gabapentin See Rx Instructions .ROUTE .COMPLEX 04/13/20 04/13/20 Unknown History vancomycin in 0.9 % sodium chl 1 gm IVP Q12H 14 Days #5600 ml 04/20/20 Unknown Rx Allergies Allergy/AdvReac Type Severity Reaction Status Date / Time adhesive tape Allergy BLISTERS Verified 01/26/20 10:01 citalopram [From Celexa] Allergy NA Verified 01/26/20 10:01 duloxetine [From Cymbalta] Allergy NA Verified 01/26/20 10:01 PFSH Acute PFSH: Medical History Chronic cystitis Diabetes Gross hematuria H/O fracture of femur has an artifical femur left leg Malignant neoplasm of lung Urgency incontinence Surgical History H/O oral surgery H/O pneumonectomy H/O: hysterectomy S/P cataract surgery Family History Mother , [id number] No problems noted. Father , 69-lung cancer Cancer Denies family history of Anesthesia complication Bleeding disorder Social History Smoking and tobacco status: never smoked Alcohol intake: never Adopted: No Caregiver/support person: No Lives independently: No Household members: family Marital status: / Current occupational status: retired Vitals/I&O/Wt Last Vital Signs Temp 98.2 F 04/24/20 18:52 Pulse 119 H 04/24/20 18:52 Resp 20 H 04/24/20 18:52 BP 98/69 04/24/20 18:52 Pulse Ox 91 04/24/20 18:52 Weight last 48 hrs Weight 67.585 kg Physical Exam Const: COMMON NORMALS: no acute distress and patient oriented x3 GENERAL A PPEARANCE: cooperative and comfortable HENMT: COMMON NORMALS: normocephalic HEAD & SCALP: normocephalic Eye: COMMON NORMALS: Equal, round and reactive pupils present and EOMs intact bilaterally GENERAL EYE: appearance normal, both eyes and all related structures PUPIL: Yes Equal, round and reactive pupils present Neck/C-Spine: COMMON NORMALS: full ROM, no lymphadenopathy, no JVD and Thyroid normal THYROID: Thyroid normal Lymph: LYMPHATIC: no lymphadenopathy noted Resp: COMMON NORMALS: normal respiratory effort, No retractions, No use of accessory muscles and clear to auscultation bilaterally AUSCULTATION: clear to auscultation bilaterally Cardio: COMMON NORMALS: no JVD, regular rate, regular rhythm, S1 normal heart sound present, S2 normal heart sound present, No gallops present (Cardio), No cl icks present (Cardio) and No murmurs present (Cardio) RATE: regular rate RHYTHM: regular rhythm HEART SOUNDS: S1 normal heart sound present and S2 normal heart sound present GI: COMMON NORMALS: Normal to inspection, nondistended, normoactive bowel sounds present, Soft to palpation, non-tender and No hepatosplenomegaly present PALPATION: Yes Soft to palpation and Yes No hepatosplenomegaly present Extremity: COMMON NORMALS: normal to inspection, full ROM and no pedal edema Neuro: COMMON NORMALS: patient oriented x3, CN's II-XII intact bilaterally, moves all extremities and no focal motor deficits Psych: COMMON NORMALS: mental status grossly normal, Normal thought process present and cooperative THOUGHT PROCESS: Normal thought process present Data : 04/24/20 19:26 04/24/20 19:26 A&P Assessment and plan (1) Vancomycin-induced nephrotoxicity: -Creatinine 3.8 -Vancomycin trough 70.1 -Patient states that she is urinating well, no flank pain, has chronic dysuria Plan: -Admit to general medical floors -Nephrology has been consulted -Renal ultrasound, urine sodium, urine creatinine, urine eosinophils -Hold nephrotoxic agents -Patient is a full code -Heparin for DVT prophylaxis Status: Acute (2) Acute kidney injury: Status: Acute (3) Coag negative Staphylococcus bacteremia: -Stop vancomycin -Monitor vancomycin troughs -Switch to Zyvox Status: Acute (4) Diabetes mellitus: -Insulin sliding scale Status: Acute (5) Malignant neoplasm of lung: -Squamous cell carcinoma per trans-bronchial biopsy done 11/06/2019, status post chemoradiation on 01/15/2020 - Status: Acute (6) Urgency incontinence: -On Toviaz Status: Acute Attestations Medical Necessity Statement*: Patient requires hospitalization, inpatient, greater than 2 midnights, for vancomycin due to nephrotoxicity Coding Level of Care Code Acute Inclusion Paraeducator for [facility] Fwd Diagnoses Vancomycin-induced nephrotoxicity N14.1; T36.8X5A Acute kidney injury N17.9 Coag negative Staphylococcus bacteremia R78.81; B95.7 Diabetes mellitus E11.9 Malignant neoplasm of lung C34.90 Urgency incontinence N39.41
[2020-04-24 22:27] LABS: Hepatitis B Core AB, Total Non-Reactive (Nonreactive); Hepatitis B Surface AB 3.5 (0-8.5); Hepatitis B Surface Antigen Non-Reactive (Nonreactive); Hepatitis C Virus Antibody Non-Reactive (Nonreactive)
[2020-04-24 22:31] LABS: Creatine Phosphokinase 15 U/L (26-192)
[2020-04-24 22:39] LABS: Lactate (Lactic Acid level) 1.1 mmol/L (0.5-2.2)
[2020-04-24 22:49] VITALS: BP 196/96; PULSE 76; RESP 18; O2SAT 97
[2020-04-24 23:49] VITALS: BP 185/95; PULSE 84; RESP 18; O2SAT 98
[2020-04-25] VITALS (9 sets, daily range): BP systolic 96–142; BP diastolic 61–76; PULSE 76–94; RESP 16–18; TEMP 36.4–37.6; O2SAT 90–97
--- NOTE | 2020-04-25 01:01 | US_ITS ---
WS: [id number] ULTRASOUND RENAL TECHNIQUE: Ultrasound examination of both kidneys. CLINICAL INFORMATION: diony COMPARISON: None. FINDINGS: RIGHT: Right kidney is normal in size and appearance. Echogenicity: Normal. Cortical thickness: 1.4 cm; Normal. Hydronephrosis: None. Perinephric fluid: None. Right kidney measures: 11.0 cm x 5.8 cm x 5.5 cm. LEFT: Left kidney is normal in size and appearance. Echogenicity: Normal. Cortical thickness: 1.5 cm; Normal. Hydronephrosis: None. Perinephric fluid: None. Left kidney measures: 10.7 cm x 5.3 cm x 4.9 cm. Normal visualized aorta. Normal bladder. US/US renal BI* [id number] IMPRESSION: Normal renal ultrasound. No hydronephrosis.
[2020-04-25] MEDS: lanolin oint 7 gm 1 APPLIC TOPICAL (01:15)
[2020-04-25] MEDS: sodium bicarbonate 8.4% syr 150 MEQ in dextrose 5% 1,000 ML 125 MEQ IV (01:15)
[2020-04-25] MEDS: heparin 5,000 unit/mL INJ 1 mL 5000 UNIT SUBCUT ×2 (01:24→12:22)
--- NOTE | 2020-04-25 04:07 | PC.NUTR ---
after report called to nicole on med surg, pt had telenephrologist consult. vo obtained for void measurement with lomax insertion. pt consented to lomax insertion
--- NOTE | 2020-04-25 04:22 | PC.NURSE ---
after report given to interactive media marketing strategist, pt had telenephrology consult. orders obtained to measure voided then have lomax inserted. pt consented to lomax insertion. pt able to use commode with assist. 50cc of urine measured output. no measurable urine output after lomax insertion. med surg updated on new orders
[2020-04-25 05:56] LABS: Basophils % 0.4 %; Eosinophils # 0.4 10^3/uL (0.0-0.8); Hematocrit 29.1 % (37.0-47.0); Hemoglobin 9.1 g/dL (11.5-15.3); Lymphocytes # 0.5 10^3/uL (0.8-4.8); Lymphocytes % 9.3 %; Mean Corpuscular HGB Conc 31.3 g/dL (30.0-36.0); Mean Platelet Volume 10.8 fL (7.4-10.4); Monocytes # 0.6 10^3/uL (0.2-0.9); Neutrophils # 3.71 10^3/uL (1.8-7.7); Neutrophils % 71.7 %; Nucleated Red Blood Cells % 0 %; Platelet Count 181 10^3/cmm (130-400); Red Blood Count 3.03 10^6/uL (4.1-5.3); Red Cell Distribution Width 15.9 % (12.1-15.1); White Blood Count 5.2 10^3/uL (4.0-10.0)
[2020-04-25 06:25] LABS: Alanine Aminotransferase < 5 U/L (0-33); Albumin Level 2.7 g/dL (3.5-5.2); Alkaline Phosphatase 50 IU/L (35-105); Anion Gap 15.2 (5-19); Aspartate Amino Transferase 13 U/L (0-32); Blood Urea Nitrogen 43 mg/dL (8-23); Calcium 8.3 mg/dL (8.5-10.5); Carbon Dioxide 28 mmol/L (22-29); Chloride 94 mmol/L (98-107); Globulin 3.5 g/dL (1.3-4.6); Glucose 122 mg/dL (65-115); Magnesium 1.9 mg/dL (1.7-2.3); Osmolality Calculated 290 mOsm/kg (285-295); Phosphorus 5.6 mg/dL (2.5-4.5); Potassium 3.2 mmol/L (3.5-5.1); Sodium 134 mmol/L (136-145); Total Bilirubin 0.2 mg/dL (0.15-1.2); Total Protein 6.2 g/dL (6.6-8.7)
[2020-04-25 06:27] LABS: Creatine Phosphokinase 18 U/L (26-192)
[2020-04-25 07:01] LABS: Vancomycin Random 54.6 ug/mL (20.0-40.0)
--- NOTE | 2020-04-25 07:07 | P.PN_ITS ---
Subjective Subjective: Interval history: feels better. no n/v/f/c/h/d/sob Medications: Reviewed: Yes Medication Review Details: Current Medications Acetaminophen (Tylenol) 650 mg PO Q6H PRN PRN Reason: Mild/Mod Pain Or Temp >/= 101 Hydrocodone Bitart/Acetaminophen (Ponca 10-325 Mg) 1 tab PO Q4H PRN PRN Reason: Pain Alprazolam (Xanax) 1 mg PO BID PRN PRN Reason: anxiety Atorvastatin Calcium (Lipitor) 20 mg PO DAILY [facility] Clopidogrel Bisulfate (Plavix) 75 mg PO DAILY [facility] Escitalopram Oxalate (Lexapro) 20 mg PO DAILY [facility] Gabapentin (Neurontin) 600 mg PO 0800,1200 MICHELLE Gabapentin (Neurontin) 1,200 mg PO BEDTIME MICHELLE Heparin Sodium (Beef Lung) (Heparin) 5,000 unit SUBCUT Q12H [facility] Last Admin: 04/25/20 01:24 Dose: 5,000 unit Documented by: Sodium Bicarbonate 150 meq/ (Dextrose) 1,150 mls @ 125 mls/hr IV .Q9H12M [facility] Last Admin: 04/25/20 01:15 Dose: 125 mls/hr Documented by: Sodium Chloride (Sodium Chloride 0.9%) 1,000 mls @ 75 mls/hr IV .[id number] [facility] Linezolid (Zyvox Premix) 600 mg in 300 mls @ 300 mls/hr IV Q12H [facility]; Protocol Lanolin (Lanolin Oint) 1 applic TOPICAL PRN PRN PRN Reason: DRYNESS Last Admin: 04/25/20 01:15 Dose: 1 appful Documented by: Levothyroxine Sodium (Synthroid) 112 mcg PO DAILY [facility] Levothyroxine Sodium (Synthroid) 25 mcg PO DAILY [facility] Ondansetron HCl (Zofran) 4 mg IVP Q8H PRN PRN Reason: vomiting, or N/V if npo Trazodone HCl (Desyrel) 50 mg PO DAILY [facility] Vitals/I&O/Wt Last Vital Signs Temp 97.8 F 04/25/20 04:00 Pulse 94 04/25/20 04:14 Resp 18 04/25/20 04:14 BP 142/76 04/25/20 04:14 Pulse Ox 97 04/25/20 04:14 Weight last 48 hrs Weight 67.585 kg Physical Exam Narrative: EXAM NARRATIVE: comfortable in bed, NARD vs noted and stable heent- nc/at, eomi, anicteric neck- supple lungs clear heart- reg,, +s1, s2 abd soft, nt, nd, +BS ext no edema neuro- a,ao x 2+ pulses + b/l Urinary Catheter Management^: Huang Latex: Cath Placed During This Visit: yes Urinary Catheter Date of Insertion: 04/24/20 Urinary Catheter Time of Insertion: 23:46 Huang Latex Free: Cath Placed During This Visit: no Reason for Continuing Indwelling Catheter: Accurate Measurement of Urinary Output in Critically Ill Patients Data : 04/25/20 05:26 04/25/20 05:26 A&P Additional A&P Information 74 yr old female h/o lung ca, NIDDM, cystitis in january 2020, chemo in february 2020 w/ cisplatin, recent staph epidermiditis bacteremia and d/c on apr 20 on lasix, metfirmin, iv vnco- not sure if taking NSAID's. pt here w/ LISA and vanco toxicity. 1. LISA- d dx is: a. vanco toxicity b. pre-renal- check urine lytes -cr is improving. replace k gently. cont ns ivf -u/a normal recs- renal us, ivf, urine studies -monitor chem 7,mag, phos- is high - uop - abg was ordered but not performed- no need for ABG now- as renal fxn is improving -lactate only 2 -NO METFORMIN, NSAID'S, FLEETS ENEMAS, VANCO -DOSE ALL MEDS FOR CR CL < 10 2. vanco toxicity- monitor w/ ivf. improved from 70 to 54- do not redose vanco until level is under 19 3. hyponatremia- from prerenal , lisa- check ur lytes -improving w/ ivf 4. anemia discussed w/ pt Attestations Medical Necessity Statement*: lisa, vanco toxicity, hypokalemia Time Spent in Patient Care: 16 - 35 minutes Coding Level of Care Code Acute Metal Refiner for [facility]
--- NOTE | 2020-04-25 07:24 | PC.NURSE ---
Dr. Ingram notified of vanc trough critical lab result 54.6, improved from previous finding, continue current IV fluids per Dr. Ingram.
--- NOTE | 2020-04-25 07:33 | PC.NURSE ---
During vitals 02 level was 86% room air. i reported to nurse. put patient on 2Liters and rechecked 02 level. now 92%
[2020-04-25] MEDS: atorvastatin 40 mg Tablet 20 MG PO (08:20)
[2020-04-25] MEDS: levothyroxine 25 mcg Tablet PO (08:20)
[2020-04-25] MEDS: gabapentin 300 mg Capsule 600 MG PO ×2 (08:20→12:22)
[2020-04-25] MEDS: potassium chloride ER 10 mEq Tablet 40 MEQ PO (08:21)
[2020-04-25] MEDS: escitalopram 10 mg Tablet 20 MG PO (08:21)
[2020-04-25] MEDS: levothyroxine 112 mcg Tablet PO (08:21)
[2020-04-25] MEDS: clopidogrel 75 mg Tablet PO (08:21)
[2020-04-25] MEDS: linezolid premix 600 MG/300 ML PREMIX 300 MG IV ×2 (08:21→20:16)
[2020-04-25] MEDS: sodium chloride 0.9% 1,000 ML 90 ML IV ×2 (08:22→15:04)
[2020-04-25] MEDS: HYDROcodone-acetaminophen 10-325 mg Tablet 1 TAB PO (10:19)
--- NOTE | 2020-04-25 10:27 | P.PN_ITS ---
Subjective Subjective: Interval history: Patient awake in bed at time of exam this morning. She denies any chest pain or shortness of breath. Denies any nausea or vomiting. Vitals/I&O/Wt Last Vital Signs Temp 99.0 F 04/25/20 07:32 Pulse 90 04/25/20 08:52 Resp 16 04/25/20 08:52 BP 131/75 04/25/20 07:32 Pulse Ox 94 04/25/20 08:52 04/24/20 04/25/20 04/25/20 22:59 06:59 14:59 Intake Total 360 / 360 Balance 360 / 360 Weight last 48 hrs Weight 67.585 kg Physical Exam Const: COMMON NORMALS: patient oriented x3 and alert GENERAL APPEARANCE: cooperative ORIENTATION/CONSCIOUSNESS: Yes awake, Yes oriented to person, Yes oriented to place and Yes oriented to time HENMT: COMMON NORMALS: normocephalic and atraumatic HEAD & SCALP: normocephalic and atraumatic Eye: COMMON NORMALS: Equal, round and reactive pupils present PUPIL: Yes Equal, round and reactive pupils present Neck/C-Spine: COMMON NORMALS: supple GENERAL: Yes normal visual inspection Resp: COMMON NORMALS: normal respiratory effort and clear to auscultation bilaterally AUSCULTATION: clear to auscultation bilaterally, no rhonchi and no wheezes Cardio: COMMON NORMALS: regular rate, regular rhythm and No murmurs present (Cardio) RATE: regular rate RHYTHM: regular rhythm GI: COMMON NORMALS: Soft to palpation and non-tender INSPECTION: No abdominal distension AUSCULTATION: Yes normoactive bowel sounds PALPATION: Yes Soft to palpation Extremity: COMMON NORMALS: no clubbing, cyanosis or edema and no calf tenderness Neuro: COMMON NORMALS: patient oriented x3, CN's II-XII intact bilaterally, moves all extremities and no focal motor deficits SENSORIUM/ORIENTATION: Yes alert, Yes oriented to person, Yes oriented to place and Yes oriented to time SPEECH: speech normal Psych: COMMON NORMALS: mental status grossly normal and cooperative Skin: COMMON NORMALS: no rashes or lesions noted GENERAL SKIN EXAM: no ra shes or lesions noted Urinary Catheter Management^: Huang Latex: Cath Placed During This Visit: yes Reason for Continuing Indwelling Catheter: Acute Urinary Retention or Obstruction Urinary Catheter Date of Insertion: 04/24/20 Urinary Catheter Time of Insertion: 23:46 Huang Latex Free: Cath Placed During This Visit: no Reason for Continuing Indwelling Catheter: Accurate Measurement of Urinary Output in Critically Ill Patients Data : 04/25/20 05:26 04/25/20 05:26 A&P Assessment and plan (1) Vancomycin-induced nephrotoxicity: Renal function improved today, continue to follow along with nephrology recommendations Hold on vancomycin until trough less than 20 then will transition to linezolid, will discuss with infectious disease physician Status: Acute (2) Acute kidney injury: Acute kidney injury secondary to vancomycin induced nephrotoxicity Status: Acute (3) Coag negative Staphylococcus bacteremia: Recheck daily vancomycin trough When trough less than 20 will transition to linezolid Status: Acute (4) Diabetes mellitus: Insulin sliding scale Status: Acute (5) Malignant neoplasm of lung: Squamous cell carcinoma per trans-bronchial biopsy done 11/06/2019, status post chemoradiation on 01/15/[address] Berger Status: Acute (6) Urgency incontinence: Continue Toviaz Status: Acute Attestations Medical Necessity Statement*: Patient requires further hospitalization due to vancomycin-induced nephrotoxicity with acute kidney injury Coding Level of Care Code Acute Content Curator for [facility] Fwd Diagnoses Vancomycin-induced nephrotoxicity N14.1; T36.8X5A Acute kidney injury N17.9 Coag negative Staphylococcus bacteremia R78.81; B95.7 Diabetes mellitus E11.9 Malignant neoplasm of lung C34.90 Urgency incontinence N39.41
--- NOTE | 2020-04-25 10:59 | PC.CHAP ---
Pastoral Care Encounter/Spiritual Assessment Type of Contact [] Declined spring encaser visit [] Patient/Family/Request visit [] Outpatient visit [] Follow-up visit [] Physician referral [] Code/Alert [x] Routine visit [] Staff referral [] Actively dying [] Patient sleeping [] Family support [] [] Out of room [] Palliative care [] [x] Receiving care in room [] Pre-surgical visit [] Trauma [] Long length of stay [] ICU visit [] Other: Relational/Emotional Strength [x] Patient feels connected with others/family/visitors/staff [] Distress [] Loneliness/isolation [] Abandonment Spirituality of Patient [x] Person of Lillian [] Attends Spiritism of their Lillian [x] Believes in Prayer [] Reads Bible or Orthodox materials [] There are Spiritual issues to be addressed Eyelet Row Marker Interventions [x] Prayer [x] Active listening [x] Non-anxious presence [x] Spiritual/emotional support [] Crisis/trauma care [x] Spiritual counseling [] Bereavement support [] Provided bereavement packet [] Provided Bible/devotional materials [] Provided toy/stuffed animal, coloring book to patient or family member [] Provided Communion [] Anointing/[place] [] Salvation [x] Completed spiritual assessment [] Other: Impact on Illness or Injury [] Angry [] Fearful [x] Anxious [] Often cries [] Exhaustion [] Unable to work [] Unable to attend sabianism [] Unable to walk/stand [] Unable to read [] Unable to drive [] Unable to eat/drink [] Unable to sleep [] Unable to be with family [] Patient intubated [] Other: Summary infection in kindeys, changed Meds hoping that will help. Feels good has a good attitude, not sure when she can go home Time spent with patient 10 mins
--- NOTE | 2020-04-25 13:03 | PC.NURSE ---
patient had no urine in lomax catheter bag or tube, brief fully saturated and pants saturated, Dr. Rosado notified, new order received to discontinue lomax and place a brief.
[2020-04-25] MEDS: gabapentin 300 mg Capsule 1200 MG PO (20:16)
[2020-04-26] MEDS: sodium chloride 0.9% 1,000 ML 90 ML IV (00:53)
[2020-04-26] MEDS: heparin 5,000 unit/mL INJ 1 mL 5000 UNIT SUBCUT ×2 (01:15→11:57)
[2020-04-26 04:00] VITALS: BP 134/79; PULSE 89; RESP 18; TEMP 38.4; O2SAT 93
[2020-04-26 04:22] LABS: Basophils % 0.2 %; Eosinophils # 0.6 10^3/uL (0.0-0.8); Eosinophils % 11.5 %; Hematocrit 27.6 % (37.0-47.0); Hemoglobin 8.5 g/dL (11.5-15.3); Lymphocytes # 0.4 10^3/uL (0.8-4.8); Lymphocytes % 6.9 %; Mean Corpuscular HGB Conc 30.8 g/dL (30.0-36.0); Mean Corpuscular Volume 97.5 fL (81-99); Mean Platelet Volume 10.7 fL (7.4-10.4); Monocytes # 0.6 10^3/uL (0.2-0.9); Monocytes % 10.5 %; Neutrophils # 3.68 10^3/uL (1.8-7.7); Neutrophils % 70.1 %; Nucleated Red Blood Cells % 0 %; Platelet Count 150 10^3/cmm (130-400); Red Blood Count 2.83 10^6/uL (4.1-5.3); Red Cell Distribution Width 15.9 % (12.1-15.1); White Blood Count 5.2 10^3/uL (4.0-10.0)
[2020-04-26 04:42] LABS: Alanine Aminotransferase < 5 U/L (0-33); Albumin Level 2.4 g/dL (3.5-5.2); Alkaline Phosphatase 47 IU/L (35-105); Anion Gap 12.4 (5-19); Aspartate Amino Transferase 13 U/L (0-32); Blood Urea Nitrogen 33 mg/dL (8-23); Calcium 8.5 mg/dL (8.5-10.5); Carbon Dioxide 27 mmol/L (22-29); Chloride 98 mmol/L (98-107); Globulin 3.1 g/dL (1.3-4.6); Glucose 110 mg/dL (65-115); Magnesium 1.7 mg/dL (1.7-2.3); Osmolality Calculated 286 mOsm/kg (285-295); Phosphorus 3.2 mg/dL (2.5-4.5); Potassium 3.4 mmol/L (3.5-5.1); Sodium 134 mmol/L (136-145); Total Bilirubin 0.2 mg/dL (0.15-1.2); Total Protein 5.5 g/dL (6.6-8.7)
--- NOTE | 2020-04-26 04:43 | PC.NURSE ---
pt wet through brief, chloé, and sheets
[2020-04-26 04:54] LABS: Vancomycin Random 43.3 ug/mL (20.0-40.0)
[2020-04-26] MEDS: HYDROcodone-acetaminophen 10-325 mg Tablet 1 TAB PO ×3 (05:24→21:31)
[2020-04-26 07:18] VITALS: BP 108/68; PULSE 93; RESP 18; TEMP 37; O2SAT 93
[2020-04-26] MEDS: atorvastatin 40 mg Tablet 20 MG PO (07:58)
[2020-04-26] MEDS: linezolid premix 600 MG/300 ML PREMIX 300 MG IV ×2 (07:58→21:23)
[2020-04-26] MEDS: levothyroxine 112 mcg Tablet PO (07:59)
[2020-04-26] MEDS: escitalopram 10 mg Tablet 20 MG PO (07:59)
[2020-04-26] MEDS: levothyroxine 25 mcg Tablet PO (07:59)
[2020-04-26] MEDS: clopidogrel 75 mg Tablet PO (07:59)
[2020-04-26] MEDS: gabapentin 300 mg Capsule 600 MG PO ×2 (08:07→11:57)
[2020-04-26 12:00] VITALS: BP 113/70; PULSE 88; RESP 16; TEMP 36.9; O2SAT 95
--- NOTE | 2020-04-26 12:08 | PM.PN ---
Subjective Subjective: Interval history: Patient awake in bed at time of exam this morning. She denies any chest pain or shortness of breath. Denies any nausea or vomiting. Feels well, passing urine, taking down most of her tray Medications: Reviewed: Yes Vitals/I&O/Wt Last Vital Signs Temp 98.6 F 04/26/20 07:18 Pulse 93 04/26/20 07:18 Resp 18 04/26/20 07:18 BP 108/68 04/26/20 07:18 Pulse Ox 93 04/26/20 07:18 04/25/20 04/26/20 04/26/20 22:59 06:59 14:59 Intake Total 1383 / 2043 883.5 / 2926.5 240 / 240 Output Total 250 / 250 Balance 1383 / 2043 883.5 / 2926.5 - Weight last 48 hrs Weight 67.585 kg Physical Exam Narrative: EXAM NARRATIVE: Constitutional: Awake, conversant, jovial HEENT: Wet mucosa, no jvp, non icteric Lungs: Bilaterally clear without discernible wheeze, rales in all lung zones CVS: S1 S2, no murmurs Abdo: Soft, BS ok Ext 4: Minimal edema, peripheral perfusion with no cyanosis Neurological: Grossly non-focal Urinary Catheter Management^: Huang Latex: Cath Placed During This Visit: yes, but has since been removed by the nurse Reason for Continuing Indwelling Catheter: Not indwelling catheter Urinary Catheter Date of Insertion: 04/24/20 Urinary Catheter Time of Insertion: 23:46 Date Urinary Catheter Removed: 04/25/20 Time Urinary Catheter Discontinued: 13:10 Huang Latex Free: Cath Placed During This Visit: no Reason for Continuing Indwelling Catheter: Accurate Measurement of Urinary Output in Critically Ill Patients Data : 04/26/20 04:02 04/26/20 04:02 A&P Additional A&P Information 74 yr old female h/o lung ca, NIDDM, cystitis in january 2020, chemo in february 2020 w/ cisplatin, recent staph epidermiditis bacteremia and d/c on apr 20 on lasix, metfirmin, iv vnco- not sure if taking NSAID's. pt here w/ LISA and vanco toxicity. 1. LISA - recovering renal function now. - good oral intake, will DC ivf - avoid the usuals - strict ins and outs 2. vanco toxicity - levels still high at 40, drifting down 3. Lytes - minor aberration; will replace potassium - renal function recovering; ok to DC today or tomorrow from my perspective but I defer to Dr Rosado. Attestations Medical Necessity Statement*: Eval for LISA Coding Level of Care Code Acute Mutuel Department Manager for [facility]
--- NOTE | 2020-04-26 13:17 | P.PN_ITS ---
Subjective Subjective: Interval history: Patient awake in bed with no concerns. Denies any chest pain or shortness of breath. Discussed with patient plan of care, she verbalized understanding and agreed with plan. Vitals/I&O/Wt Last Vital Signs Temp 98.5 F 04/26/20 12:00 Pulse 88 04/26/20 12:00 Resp 16 04/26/20 12:00 BP 113/70 04/26/20 12:00 Pulse Ox 95 04/26/20 12:00 04/25/20 04/26/20 04/26/20 22:59 06:59 14:59 Intake Total 1383 / 2043 883.5 / 2926.5 360 / 360 Output Total 250 / 250 Balance 1383 / 2043 883.5 / 2926.5 110 / 110 Weight last 48 hrs Weight 67.585 kg Physical Exam Const: COMMON NORMALS: patient oriented x3 and alert GENERAL APPEARANCE: cooperative ORIENTATION/CONSCIOUSNESS: Yes awake, Yes oriented to person, Yes oriented to place and Yes oriented to time HENMT: COMMON NORMALS: normocephalic and atraumatic HEAD & SCALP: normocephalic and atraumatic Eye: COMMON NORMALS: Equal, round and reactive pupils present PUPIL: Yes Equal, round and reactive pupils present Neck/C-Spine: COMMON NORMALS: supple GENERAL: Yes normal visual inspection Resp: COMMON NORMALS: normal respiratory effort and clear to auscultation bilaterally EFFORT & INSPECTION: Yes able to speak in complete sentences AUSCULTATION: clear to auscultation bilaterally, no rhonchi and no wheezes Cardio: COMMON NORMALS: regular rate, regular rhythm and No murmurs present (Cardio) RATE: regular rate RHYTHM: regular rhythm GI: COMMON NORMALS: Soft to palpation and non-tender INSPECTION: No abdominal distension AUSCULTATION: Yes normoactive bowel sounds PALPATION: Yes Soft to palpation Extremity: COMMON NORMALS: no clubbing, cyanosis or edema and no calf tenderness Neuro: COMMON NORMALS: patient oriented x3, CN's II-XII intact bilaterally, moves all extremities and no focal motor deficits SENSORIUM/ORIENTATION: Yes alert, Yes oriented to person, Yes oriented to place and Yes oriented to time SPEECH: speech normal Psych: COMMON NORMALS: mental status grossly normal and cooperative Skin: COMMON NORMALS: no rashes or lesions noted GENERAL SKIN EXAM: no rashes or lesions noted Urinary Catheter Management^: Huang Latex: Cath Placed During This Visit: yes, but has since been removed by the nurse Reason for Continuing Indwelling Catheter: Not indwelling catheter Urinary Catheter Date of Insertion: 04/24/20 Urinary Catheter Time of Insertion: 23:46 Date Urinary Catheter Removed: 04/25/20 Time Urinary Catheter Discontinued: 13:10 Huang Latex Free: Cath Placed During This Visit: no Reason for Continuing Indwelling Catheter: Accurate Measurement of Urinary Output in Critically Ill Patients Data : 04/26/20 04:02 04/26/20 04:02 A&P Assessment and plan (1) Vancomycin-induced nephrotoxicity: Renal function continues to improve Plan for recheck tomorrow and if continued improvement plan for discharge tomorrow Status: Acute (2) Acute kidney injury: Acute kidney injury secondary to vancomycin induced nephrotoxicity Status: Acute (3) Coag negative Staphylococcus bacteremia: Recheck daily vancomycin trough When trough less than 20 will transition to linezolid Status: Acute (4) Diabetes mellitus: Insulin sliding scale Status: Acute (5) Malignant neoplasm of lung: Squamous cell carcinoma per trans-bronchial biopsy done 11/06/2019, status post chemoradiation on 01/15/[address] Berger Status: Acute (6) Urgency incontinence: Continue Toviaz Status: Acute Attestations Medical Necessity Statement*: Requires further hospitalization due to acute kidney injury secondary to vancomycin toxicity Coding Level of Care Code Acute Manufacturing Machine Operator for [facility] Fwd Diagnoses Vancomycin-induced nephrotoxicity N14.1; T36.8X5A Acute kidney injury N17.9 Coag negative Staphylococcus bacteremia R78.81; B95.7 Diabetes mellitus E11.9 Malignant neoplasm of lung C34.90 Urgency incontinence N39.41
[2020-04-26 15:52] VITALS: BP 146/84; PULSE 89; RESP 18; TEMP 37; O2SAT 94
[2020-04-26 19:23] VITALS: BP 125/72; PULSE 94; RESP 18; TEMP 37.8; O2SAT 92
[2020-04-26] MEDS: gabapentin 300 mg Capsule 1200 MG PO (21:23)
[2020-04-27] VITALS: BP 100/62; PULSE 82; RESP 18; TEMP 36.9; O2SAT 96
[2020-04-27 04:00] VITALS: BP 116/72; PULSE 86; RESP 18; TEMP 37.2; O2SAT 92
[2020-04-27] MEDS: heparin 5,000 unit/mL INJ 1 mL 5000 UNIT SUBCUT (04:47)
[2020-04-27 06:22] LABS: Basophils % 0.2 %; Eosinophils # 0.3 10^3/uL (0.0-0.8); Eosinophils % 6.5 %; Hematocrit 26.9 % (37.0-47.0); Hemoglobin 8.2 g/dL (11.5-15.3); Lymphocytes # 0.4 10^3/uL (0.8-4.8); Lymphocytes % 8.4 %; Mean Corpuscular HGB Conc 30.5 g/dL (30.0-36.0); Mean Corpuscular Hemoglobin 29.2 pg (28.0-34.0); Mean Corpuscular Volume 95.7 fL (81-99); Mean Platelet Volume 10.8 fL (7.4-10.4); Monocytes # 0.5 10^3/uL (0.2-0.9); Monocytes % 11.6 %; Neutrophils # 3.36 10^3/uL (1.8-7.7); Neutrophils % 72.4 %; Nucleated Red Blood Cells % 0 %; Platelet Count 162 10^3/cmm (130-400); Red Blood Count 2.81 10^6/uL (4.1-5.3); Red Cell Distribution Width 15.8 % (12.1-15.1); White Blood Count 4.6 10^3/uL (4.0-10.0)
[2020-04-27 06:35] LABS: Alanine Aminotransferase < 5 U/L (0-33); Albumin Level 2.4 g/dL (3.5-5.2); Alkaline Phosphatase 52 IU/L (35-105); Anion Gap 13.5 (5-19); Aspartate Amino Transferase 13 U/L (0-32); Blood Urea Nitrogen 30 mg/dL (8-23); Calcium 8.9 mg/dL (8.5-10.5); Carbon Dioxide 27 mmol/L (22-29); Chloride 96 mmol/L (98-107); Globulin 3.3 g/dL (1.3-4.6); Glucose 113 mg/dL (65-115); Magnesium 1.6 mg/dL (1.7-2.3); Osmolality Calculated 283 mOsm/kg (285-295); Phosphorus 3.7 mg/dL (2.5-4.5); Potassium 3.5 mmol/L (3.5-5.1); Sodium 133 mmol/L (136-145); Total Bilirubin 0.2 mg/dL (0.15-1.2); Total Protein 5.7 g/dL (6.6-8.7)
[2020-04-27 06:55] LABS: Vancomycin Random 31.1 ug/mL (20.0-40.0)
[2020-04-27 08:00] VITALS: BP 118/72; PULSE 92; RESP 18; TEMP 37.1; O2SAT 92
[2020-04-27] MEDS: levothyroxine 25 mcg Tablet PO (08:18)
[2020-04-27] MEDS: levothyroxine 112 mcg Tablet PO (08:18)
[2020-04-27] MEDS: escitalopram 10 mg Tablet 20 MG PO (08:19)
[2020-04-27] MEDS: trazodone 50 mg Tablet PO (08:19)
[2020-04-27] MEDS: atorvastatin 40 mg Tablet 20 MG PO (08:19)
[2020-04-27] MEDS: gabapentin 300 mg Capsule 600 MG PO ×2 (08:19→11:37)
[2020-04-27] MEDS: clopidogrel 75 mg Tablet PO (08:19)
[2020-04-27] MEDS: HYDROcodone-acetaminophen 10-325 mg Tablet 1 TAB PO (08:22)
[2020-04-27] MEDS: linezolid premix 600 MG/300 ML PREMIX 300 MG IV (08:24)
--- NOTE | 2020-04-27 09:30 | PC.SOCIAL ---
IMM Page 2 of IMM explained to patient. Initialed, dated, and timed and placed in chart. Copy provided to patient.
--- NOTE | 2020-04-27 10:23 | PM.DCS ---
Discharge Providers Date of Admission: 04/24/20 20:43 Date of Discharge: April 27, 2020 Attending Provider at Admission: Dinesh Frankel MD Attending Provider at Discharge: Dhara Rosado DO Primary Care Provider: Burak Yi Diagnoses at Discharge Discharge Diagnosis (1) Vancomycin-induced nephrotoxicity: Status: Acute (2) Acute kidney injury: Status: Acute (3) Coag negative Staphylococcus bacteremia: Status: Acute Problem details: start (4) Diabetes mellitus: Status: Acute (5) Malignant neoplasm of lung: Status: Acute (6) Urgency incontinence: Status: Acute Reason for Visit Reason for Visit: KIDNEYS Hospital Course Hospital Course: Patient was seen and evaluated in the emergency department due to worsening renal function. She was noted to have acute kidney injury with vancomycin toxicity. She was recently diagnosed and treated for coag negative staph bacteremia. She remained on IV vancomycin she was seen by her infusion center and due to worsening renal function sent to the ER for further evaluation and treatment. She was noted to have a Vanco trough greater than 50 on admission. Nephrology was consulted. Patient's vancomycin was discontinued. She had gradual improvement over the course of her hospitalization and continued to improve in a stepwise fashion. Her vancomycin trough improved to 31 and she was then transition to linezolid on date of discharge. On date of discharge she denied any chest pain, no shortness of breath, no abdominal pain or nausea she reported that she was feeling well and agreed with plan to return home. Physical Exam Const: COMMON NORMALS: patient oriented x3 and alert GENERAL APPEARANCE: cooperative ORIENTATION/CONSCIOUSNESS: Yes awake, Yes oriented to person, Yes oriented to place and Yes oriented to time HENMT: COMMON NORMALS: normocephalic and atraumatic HEAD & SCALP: normocephalic and atraumatic Eye: COMMON NORMALS: Equal, round and reactive pupils present PUPIL: Yes Equal, round and reactive pupils present Neck/C-Spine: COMMON NORMALS: supple GENERAL: Yes normal visual inspection Resp: COMMON NORMALS: normal respiratory effort and clear to auscultation bilaterally EFFORT & INSPECTION: Yes able to speak in complete sentences AUSCULTATION: clear to auscultation bilaterally, no rhonchi and no wheezes Cardio: COMMON NORMALS: regular rate, regular rhythm and No murmurs present (Cardio) RATE: regular rate RHYTHM: regular rhythm GI: COMMON NORMALS: Soft to palpation and non-tender INSPECTION: No abdominal distension AUSCULTATION: Yes normoactive bowel sounds PALPATION: Yes Soft to palpation Extremity: COMMON NORMALS: no clubbing, cyanosis or edema and no calf tenderness Neuro: COMMON NORMALS: patient oriented x3, CN's II-XII intact bilaterally, moves all extremities and no focal motor deficits SENSORIUM/ORIENTATION: Yes alert, Yes oriented to person, Yes oriented to place and Yes oriented to time SPEECH: speech normal Psych: COMMON NORMALS: mental status grossly normal and cooperative Skin: COMMON NORMALS: no rashes or lesions noted GENERAL SKIN EXAM: no rashes or lesions noted Urinary Catheter Management^: Huang Latex: Cath Placed During This Visit: yes, but has since been removed by the nurse Reason for Continuing Indwelling Catheter: Not indwelling catheter Urinary Catheter Date of Insertion: 04/24/20 Urinary Catheter Time of Insertion: 23:46 Date Urinary Catheter Removed: 04/25/20 Time Urinary Catheter Discontinued: 13:10 Huang Latex Free: Cath Placed During This Visit: no Reason for Continuing Indwelling Catheter: Accurate Measurement of Urinary Output in Critically Ill Patients Discharge Data Data Completed and Pending: Completed Studies During Hospitalization Category Date Time Status renal BI* [id number] Routine Ultrasound 04/25/20 01:01 Completed Pending at discharge Category Date Time Status ABG FULL [Arteria l Blood Gas Full] Stat Lab 04/24/20 22:32 Received Urine Creatinine Stat Lab 04/24/20 19:25 Ordered Urine Eosinophils Stat Lab 04/24/20 19:25 Ordered Urine Protein Ran dom Stat Lab 04/24/20 19:25 Ordered Urine Random Sodi um Stat Lab 04/24/20 19:25 Ordered Labs from last 24 hours 04/27/20 04/27/20 04/27/20 05:27 05:27 05:27 WBC 4.6 RBC 2.81 L Hgb 8.2 L Hct 26.9 L MCV 95.7 MCH 29.2 MCHC 30.5 RDW 15.8 H Plt Count 162 MPV 10.8 H Neut % (Auto) 72.4 Lymph % (Auto) 8.4 Weston % (Auto) 11.6 Eos % (Auto) 6.5 Baso % (Auto) 0.2 Neut # (Auto) 3.36 Lymph # (Auto) 0.4 L Weston # (Auto) 0.5 Eos # (Auto) 0.3 Baso # (Auto) 0.0 Nucleated RBC % (a uto) 0 Nucleated RBCs # 0.0 Sodium 133 L Potassium 3.5 Chloride 96 L Carbon Dioxide 27 Anion Gap 13.5 BUN 30 H Creatinine 2.5 H GFR Calculation Not Reportable Glucose 113 Calculated Osmolal ity 283 L Calcium 8.9 Phosphorus 3.7 Magnesium 1.6 L Total Bilirubin 0.2 AST 13 ALT < 5 Alkaline Phosphata se 52 Total Protein 5.7 L Albumin 2.4 L Globulin 3.3 Ur Eosinophil Smea r Urine Eosinophils U Random Total Pro tein Ur Random Sodium Urine Creatinine Random Vancomycin 31.1 04/26/20 04/26/20 12:25 12:25 WBC RBC Hgb Hct MCV MCH MCHC RDW Plt Count MPV Neut % (Auto) Lymph % (Auto) Weston % (Auto) Eos % (Auto) Baso % (Auto) Neut # (Auto) Lymph # (Auto) Weston # (Auto) Eos # (Auto) Baso # (Auto) Nucleated RBC % (a uto) Nucleated RBCs # Sodium Potassium Chloride Carbon Dioxide Anion Gap BUN Creatinine GFR Calculation Glucose Calculated Osmolal ity Calcium Phosphorus Magnesium Total Bilirubin AST ALT Alkaline Phosphata se Total Protein Albumin Globulin Ur Eosinophil Smea r Pending Urine Eosinophils Pending U Random Total Pro tein Pending Ur Random Sodium Pending Urine Creatinine Pending Random Vancomycin Vitals: Last Vital Signs Temp 98.8 F 04/27/20 08:00 Pulse 92 04/27/20 08:00 Resp 18 04/27/20 08:00 BP 118/72 04/27/20 08:00 Pulse Ox 92 04/27/20 08:00 Discharge Plan Discharge Patient Disposition: Home Condition: Stable Prescriptions: New linezolid [Zyvox] 600 mg tablet 600 mg PO BID 10 Days Qty: 20 RF: 0 Continued clopidogrel [Plavix] 75 mg tablet 75 mg PO DAILY RF: 0 Hold Instructions: Resume on 01/01/20. alprazolam 1 mg tablet 1 mg PO BID PRN (Reason: anxiety) RF: 0 escitalopram oxalate [Lexapro] 20 mg tablet 20 mg PO DAILY RF: 0 levothyroxine 137 mcg capsule 137 mcg PO DAILY RF: 0 hydrocodone-acetaminophen 10-325 mg tablet 1 tab PO Q4H PRN (Reason: Pain) RF: 0 lovastatin 20 mg tablet 20 mg PO DAILY RF: 0 trazodone 50 mg tablet 50 mg PO DAILY RF: 0 Toviaz 8 mg tablet extended release 24 hr 8 mg PO DAILY Qty: 30 RF: 6 gabapentin 600 mg Tablet See Rx Instructions .ROUTE .COMPLEX RF: 0 vancomycin in 0.9 % sodium chl 1 gram/200 mL piggyback 1 gm IVP Q12H 14 Days Qty: 5600 RF: 0 Held metformin 500 mg tablet 500 mg PO BID RF: 0 Hold Instructions: Resume on 05/13/20. Until instructed to restart by her primary care provider Discharge Orders: Discharge Order (Routine); Ordered 04/27/20 Ordered By: Dhara Rosado Referrals: Dr. Olga Foy-Infectious Disease [Other] (Located within [facility]) Burak Yi [Primary Care Provider] - 4-7 days Discharge Diet: Advance as tolerated Discharge Activity: Increase activity as tolerated Activity Restrictions/Additional Instructions: Discontinue vancomycin infusions Follow-up with infectious disease, Dr. Foy, as previously scheduled Follow-up with primary care provider in 3 to 5 days Hold on metformin for at least 2 weeks until seen by primary care provider. Further antibiotic coverage,Linezolid, as prescribed Call your physician or present to the ED for any acute illness or concern Discharge Attestations Time Spent in Discharge Care*: greater than 30 min Specific Discharge Activities: Specific discharge activities: educating patient and documenting/other paperwork Quality Metrics Clinical Quality Measures During this hospital stay, did patient experience: None Coding Level of Care Code Acute Brazer Helper Induction for [facility] Fwd Diagnoses Vancomycin-induced nephrotoxicity N14.1; T36.8X5A Acute kidney injury N17.9 Coag negative Staphylococcus bacteremia R78.81; B95.7 Diabetes mellitus E11.9 Malignant neoplasm of lung C34.90 Urgency incontinence N39.41
--- NOTE | 2020-04-27 10:58 | P.PN_ITS ---
Subjective Subjective: Interval history: Patient awake in bed at time of exam this morning. She denies any chest pain or shortness of breath. Denies any nausea or vomiting. Feels well, passing urine, taking down most of her tray No new issues and keen to go home Medications: Reviewed: Yes Vitals/I&O/Wt Last Vital Signs Temp 98.8 F 04/27/20 08:00 Pulse 92 04/27/20 08:00 Resp 18 04/27/20 08:00 BP 118/72 04/27/20 08:00 Pulse Ox 92 04/27/20 08:00 04/26/20 04/27/20 04/27/20 22:59 06:59 14:59 Intake Total 240 / 900 400 / 1300 120 / 120 Output Total 200 / 450 180 / 630 Balance 40 / 450 220 / 670 120 / 120 Physical Exam Narrative: EXAM NARRATIVE: Constitutional: Awake, conversant, jovial HEENT: Wet mucosa, no jvp, non icteric Lungs: Bilaterally clear without discernible wheeze, rales in all lung zones CVS: S1 S2, no murmurs Abdo: Soft, BS ok Ext 4: Minimal edema, peripheral perfusion with no cyanosis Neurological: Grossly non-focal Urinary Catheter Management^: Huang Latex: Cath Placed During This Visit: yes, but has since been removed by the nurse Reason for Continuing Indwelling Catheter: Not indwelling catheter Urinary Catheter Date of Insertion: 04/24/20 Urinary Catheter Time of Insertion: 23:46 Date Urinary Catheter Removed: 04/25/20 Time Urinary Catheter Discontinued: 13:10 Huang Latex Free: Cath Placed During This Visit: no Reason for Continuing Indwelling Catheter: Accurate Measurement of Urinary Output in Critically Ill Patients Data : 04/27/20 05:27 04/27/20 05:27 A&P Additional A&P Information 74 yr old female h/o lung ca, NIDDM, cystitis in january 2020, chemo in february 2020 w/ cisplatin, recent staph epidermiditis bacteremia and d/c on apr 20 on lasix, metfirmin, iv vnco- not sure if taking NSAID's. pt here w/ LISA and vanco toxicity. 1. LISA - recovering renal function now. - good oral intake - avoid the usuals - strict ins and outs 2. vanco toxicity - drifting down 3. Lytes - minor aberration; will replace potassium - renal function recovering; ok to DC today Attestations Medical Necessity Statement*: eval for LISA Coding Level of Care Code Acute Avionics Systems Integration Specialist for [facility]
[2020-04-27 11:03] VITALS: BP 101/62; PULSE 89; RESP 18; TEMP 37.3; O2SAT 98
[2020-04-27 12:49] VITALS: BP 101/62; PULSE 89; RESP 18; TEMP 37.3; O2SAT 98
== END 2020-04-27 13:24 | disposition home or self-care (01) | DRG 699 ==
LOC: ER 20:45 → MEDSURG 20:54
PROVIDERS: Internal Medicine Nephrology; Admitting Provider Family Medicine; Emergency Provider Emergency Medicine; PCP Family Medicine; Visit Provider Family Medicine
DX: N14.1 Nephropathy induced by other drugs, medicaments and biological substances (principal); R78.81 Bacteremia; C34.90 Malignant neoplasm of unspecified part of unspecified bronchus or lung; N17.9 Acute kidney failure, unspecified; B95.7 Other staphylococcus as the cause of diseases classified elsewhere; E11.9 Type 2 diabetes mellitus without complications; T36.8X5A Adverse effect of other systemic antibiotics, initial encounter; Y92.230 Patient room in hospital as the place of occurrence of the external cause; Z79.02 Long term (current) use of antithrombotics/antiplatelets; N39.41 Urge incontinence; Z92.21 Personal history of antineoplastic chemotherapy; N30.20 Other chronic cystitis without hematuria
CPT/HCPCS: 12345; 36415; 36592; 36600; 51702; 76770; 80051; 80053; 80202; 81001; 82550; 82810; 83605; 83735; 83986; 84100; 85025; 86705; 86706; 86803; 87340; 93005; 96372; 99284; J1642; J1644; J2020; J2405; J7030; Q3014